=== PATIENT | male | born 1955 | race Caucasian/White ===

== ENCOUNTER → 2020-11-22 07:05 | Outpatient (CLI) | payer OTHER, SELFPAY ==
[2019-08-28 17:34] VITALS: BMI 24.8
[2020-11-22 10:49] LABS: ALB/GLOB Ratio 1.1 RATIO (0.9-2.4); AST(SGOT) 13 U/L (15-37); Alanine Aminotransfer ALT/SGPT 22 U/L (16-61); Albumin, Serum 3.5 g/dL (3.2-5.0); Alkaline Phosphatase 41 U/L (45-117); Anion Gap 5 (5-15); BUN 19 mg/dL (7-18); BUN/Creat Ratio 16.2 RATIO (10-20); Calcium,Total 8.3 mg/dL (8.5-10.1); Chloride 106 mmol/L (98-107); Cholesterol 124 mg/dL (200); Creatinine, Serum 1.17 mg/dL (0.70-1.30); EST Glomerular Filtration Rate 67 mL/min (>60); Est Glom Filt Rate - Afr Amer 81 mL/min (>60); Globulin 3.2 g/dL (2.2-4.2); Glucose 84 mg/dL (74-106); High Density Lipoprotein 55 mg/dL; PSA,Total - Annual Screen 1.65 ng/mL (0.00-4.00); Protein, Total 6.7 g/dL (6.4-8.2); Sodium Level 138 mmol/L (136-145); Triglycerides 62 mg/dL; Very Low Density Lipoprotein 12 mg/dL (5-40)
== END ==
PROVIDERS: PCP Family Medicine; Referring Provider Family Medicine; Visit Provider Family Medicine
DX: E78.00 Pure hypercholesterolemia, unspecified (principal); Z12.5 Encounter for screening for malignant neoplasm of prostate
CPT/HCPCS: 36415; 80053; 80061; 84153; G0103

== ENCOUNTER → 2021-02-19 06:32 | Outpatient (CLI) | payer OTHER, SELFPAY ==
[2019-08-28 17:34] VITALS: BMI 24.8
--- NOTE | 2021-02-19 10:50 | STRESSREP ---
Stress Test Report Date: 02-19-2021 Procedure: Exercise tolerance test/imaging study Indications: Abnormal ECG Consent: Per the patient Procedure: The patient exercised on a Og protocol for 5 minutes and 30 seconds completing Stage I and 2 minutes and 30 seconds of Stage II achieving a peak heart rate of 131 bpm (85% predicted maximal heart rate) with a peak blood pressure 178/62 mmHg and a peak MET capacity of 7 METs. The baseline ECG demonstrated sinus bradycardia; nonspecific T wave abnormality. The peak exercise ECG demonstrated sinus tachycardia with approximately [address] segment depression in leads II, III, aVF, and V3 through V6 with subsequent resolution towards baseline in recovery. There was a rare PVC during exercise and recovery. The functional capacity was considered average. There was no complaint of chest discomfort during exercise or recovery. The examination was discontinued secondary to dyspnea and leg discomfort. Impression: 1. Technically adequate (percent predicted maximal heart rate greater than 85%) exercise tolerance test 2. Abnormal peak exercise ECG with sinus tachycardia with approximately [address] segment depression in leads II, III, aVF, and V3 through V6 with resolution towards baseline in recovery 3. There was a rare PVC during exercise and recovery 4. Nuclear images pending Myocardial perfusion imaging study: Technique: The patient was injected with 11.2 mCi of technetium 99m Cardiolite and subsequently rest SPECT Cardiolite nuclear imaging was obtained in the horizontal long, vertical long, and short axis views. The patient exercised on a Og protocol for 5 minutes and 30 seconds completing Stage I and 2 minutes and 30 seconds of Stage II achieving a peak heart rate of 131 bpm (84% predicted maximal heart rate) with a peak blood pressure 178/62 mmHg and a peak MET capacity of 7 METs. The patient was injected with 32.6 mCi of technetium 99m Cardiolite and subsequently stress SPECT Cardiolite nuclear imaging was obtained in the horizontal long, vertical long, and short axis views. A gated Cardiolite study at peak stress was obtained. Interpretation: Rest and stress SPECT Cardiolite nuclear imaging status post realignment, normalization, and attenuation correction, demonstrates the appearance of relative uniform tracer uptake and myocardial perfusion appearing within normal limits. There is end systolic thickening and brightening. The gated Cardiolite study demonstrates myocardial thickening and inward wall motion. The reported LVEF is 63%. Impression: 1. Rest and stress SPECT Cardiolite nuclear imaging demonstrate relative uniform tracer uptake and myocardial perfusion appearing within normal limits. 2. The gated Cardiolite study reports an LVEF of 63%. This note was generated with [employer] software. It may contain incorrect words, spelling, and punctuation that were not noted in checking the note before signing.
== END ==
PROVIDERS: PCP Family Medicine; Referring Provider Nurse Practitioner Family; Visit Provider Nurse Practitioner Family
DX: R00.2 Palpitations (principal)
CPT/HCPCS: 78452; 93017; A9500; A4216

== ENCOUNTER → 2021-03-14 15:51 | Outpatient (CLI) | payer OTHER, SELFPAY ==
[2021-03-14 14:29] VITALS: BMI 25.2
--- NOTE | 2021-03-14 15:54 | RAD_ITS ---
STUDY: X-RAY CHEST REASON FOR EXAM: Male, 65 years old. Dyspnea on exertion TECHNIQUE: Frontal and lateral view COMPARISON: None. FINDINGS: The lungs are clear and expanded. There is no demonstrated pleural abnormality. Normal size heart. Normal mediastinum and lexii. Normal visualized pulmonary arteries. Normal visualized aortic arch and descending thoracic aorta. Normal visualized thoracic spine. Normal visualized ribs, clavicles, and shoulders. There is no demonstrated abnormality of the visualized soft tissue structures of the upper abdomen. RAD/Chest PA and Lateral IMPRESSION: Normal x-ray examination of the chest. Electronically Signed: Sharath Roque DO at 16:14 EDT Tel [phone], Service support ,
[2021-03-14 16:38] LABS: Absolute Lymphocyte Count 1.74 X10^3/uL (0.83-4.51); Absolute Neutrophil Count 2.9 X10^3/uL (2.0-7.7); Basophil# 0.03 X10^3/uL; Basophil% 0.5 % (0-1); Eosinophil# 0.13 X10^3/uL; Eosinophils% 2.4 % (0-5); Hemoglobin 9.5 g/dL (13.0-16.5); Lymphocyte # 1.74 X10^3/ul (0.83-4.51); Lymphocyte % 31.5 % (19-41); Mean Corp Hgb Conc 28.8 g/dL (32-36); Mean Corpuscular Volume 69.3 fL (80-94); Mean Platelet Vol. 10.9 fl (6.2-12.0); Monocyte# 0.71 X10^3/uL; Monocyte% 12.8 % (0-10); NRBC Flagged by Analyzer 0 % (0-5); Neutrophil # 2.91 X10^3/uL (2.7-7.7); Neutrophil % 52.6 % (47-70); Platelet Count 245 K/mm3 (150-450); RBC Distribution Width CV 18.6 % (11.6-14.6); RBC Distribution Width SD 45.7 fl (35.1-43.9); Red Blood Count 4.76 M/mm3 (4.6-6.2); White Blood Count 5.5 K/mm3 (4.4-11.0)
[2021-03-14 17:00] LABS: Anion Gap 6 (5-15); BUN 19 mg/dL (7-18); BUN/Creat Ratio 14.5 RATIO (10-20); Calcium,Total 8.8 mg/dL (8.5-10.1); Chloride 106 mmol/L (98-107); Creatinine, Serum 1.31 mg/dL (0.70-1.30); EST Glomerular Filtration Rate 58 mL/min (>60); Est Glom Filt Rate - Afr Amer 71 mL/min (>60); Glucose 91 mg/dL (74-106); Potassium 3.9 mmol/L (3.5-5.1); Sodium Level 141 mmol/L (136-145)
[2021-03-14 17:11] LABS: Prothrombin Time (Protime)PT. 12.9 SECONDS (11.7-14.9)
[2021-03-14 17:12] LABS: Partial Thromboplast Time 28.7 Seconds (24.1-36.2)
== END ==
PROVIDERS: PCP Family Medicine; Referring Provider Internal Medicine Cardiovascular Disease; Visit Provider Internal Medicine Cardiovascular Disease
DX: I20.8 Other forms of angina pectoris (principal); R94.39 Abnormal result of other cardiovascular function study; E78.00 Pure hypercholesterolemia, unspecified; Z82.49 Family history of ischemic heart disease and other diseases of the circulatory system
CPT/HCPCS: 36415; 71046; 80048; 85025; 85610; 85730

== ENCOUNTER → 2021-03-25 08:36 | Outpatient (CLI) | payer OTHER, SELFPAY ==
[2021-03-14 14:29] VITALS: BMI 25.2
--- NOTE | 2021-03-25 08:40 | ECHOD_ITS ---
Reason For Study: DYSPNEA Procedure This was a 2D Doppler, Color Flow transthoracic echocardiogram. Exam performed in department. Left Ventricle Normal LV size. Left ventricular systolic function is normal. The estimated ejection fraction is 65 %. No evidence for diastolic dysfunction. No regional wall motion abnormalities noted. Right Ventricle Normal RV size. Normal systolic function. Atria The left atrium is mildly enlarged. The right atrium is mildly enlarged. 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 No doppler evidence for ASD. Mitral Valve There is no mitral annular calcification. Normal mitral valve. Mild (1+) mitral valve insufficiency. Tricuspid Valve Normal tricuspid valve. Mild tricuspid valve insufficiency. Right ventricular systolic pressure estimated to be 28 mmHg. Aortic Valve Trisinus/trileaflet aortic valve. Normal aortic valve. Pulmonic Valve The pulmonic valve is not well visualized. Trivial pulmonic valve insufficiency. Great Vessels Normal sized aortic root. Pericardium/Pleural No pericardial effusion. MMode/2D Measurements & Calculations LVIDd: 5.8 cm IVSd: 1.2 cm Ao root diam: 3.2 cm LVIDs: 3.5 cm LVPWd: 1.2 cm RVDd: 3.6 cm FS: 40.2 % LAV(MOD-bp): 110.5 ml LA A4 area: 30.0 cm2 LA dimension(2D): 4.3 cm LAV(MOD-bp) Indexed: 57.5 ml/m2 LAV(MOD-sp2): 94.1 ml LAV(MOD-sp4): 124.4 ml RA A4 area: 19.7 cm2 Time Measurements MV dec time: 0.28 sec Doppler Measurements & Calculations MV E max marty: 59.1 cm/sec Lat Peak E' Marty: 15.2 cm/sec Med Peak E' Marty: 8.8 cm/sec MV A max marty: 39.7 cm/sec E/E' lat: 3.9 E/E' med: 6.7 MV E/A: 1.5 Ao V2 max: 144.4 cm/sec LV V1 max: 112.5 cm/sec PA V2 max: 104.7 cm/sec Ao max P.3 mmHg LV V1 max P.1 mmHg TR max marty: 251.9 cm/sec TR max P.4 mmHg ECHO/Echo Complete Interpretation Summary Left ventricular systolic function is normal. The estimated ejection fraction is 65 %. The left atrium is mildly enlarged. The right atrium is mildly enlarged. 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 Mild (1+) mitral valve insufficiency. Mild tricuspid valve insufficiency. Trivial pulmonic valve insufficiency. Right ventricular systolic pressure estimated to be 28 mmHg. No evidence for diastolic dysfunction. Ordering Physician: Nito Hooker Referring Physician: Maury Booth Performed By: Nikkie Mccrary RDCS, RVT
[2021-03-25 15:02] LABS: Absolute Lymphocyte Count 1.83 X10^3/uL (0.83-4.51); Absolute Neutrophil Count 2.1 X10^3/uL (2.0-7.7); Basophil# 0.03 X10^3/uL; Basophil% 0.6 % (0-1); Eosinophils% 2.1 % (0-5); Hematocrit 30.7 % (40-54); Hemoglobin 8.7 g/dL (13.0-16.5); Immature Platelet Fraction 4.7 % (1.0-7.9); Lymphocyte # 1.83 X10^3/ul (0.83-4.51); Lymphocyte % 39.3 % (19-41); Mean Corp Hgb Conc 28.3 g/dL (32-36); Mean Corpuscular Hgb 19.4 pg (27.0-32.0); Mean Corpuscular Volume 68.5 fL (80-94); Mean Platelet Vol. 11.3 fl (6.2-12.0); Monocyte% 12.9 % (0-10); NRBC Flagged by Analyzer 0 % (0-5); Neutrophil # 2.08 X10^3/uL (2.7-7.7); Neutrophil % 44.7 % (47-70); POSITIVE MORPHOLOGY YES; Platelet Count 214 K/mm3 (150-450); RBC Distribution Width CV 18.8 % (11.6-14.6); RBC Distribution Width SD 46.4 fl (35.1-43.9); RET-HE 18.8 pg (30-35); Red Blood Count 4.48 M/mm3 (4.6-6.2); Reticulocyte Count 1.04 % (0.5-1.5); White Blood Count 4.7 K/mm3 (4.4-11.0)
[2021-03-25 15:06] LABS: Differential Indicated SCAN CRITERIA MET
[2021-03-25 15:26] LABS: Vitamin B12 425 pg/mL (211-911)
[2021-03-25 15:40] LABS: Acanthocytes 1+; Microcytosis RARE; Ovalocyte 1+
[2021-03-25 15:41] LABS: Anisocytosis 1+; Hypochromasia 2+; Platelet Estimate ADEQUATE (ADEQ)
[2021-03-25 16:03] LABS: Anion Gap 6 (5-15); BUN 20 mg/dL (7-18); BUN/Creat Ratio 17.7 RATIO (10-20); Calcium,Total 8.7 mg/dL (8.5-10.1); Chloride 108 mmol/L (98-107); Creatinine, Serum 1.13 mg/dL (0.70-1.30); EST Glomerular Filtration Rate 69 mL/min (>60); Est Glom Filt Rate - Afr Amer 84 mL/min (>60); Ferritin 7 ng/mL (26-388); Glucose 92 mg/dL (74-106); Iron 14 ug/dL (65-175); Iron Binding Capacity,Total 401 ug/dL (250-450); Potassium 4.3 mmol/L (3.5-5.1); Sodium Level 141 mmol/L (136-145)
== END ==
PROVIDERS: PCP Family Medicine; Referring Provider Internal Medicine Cardiovascular Disease; Visit Provider Internal Medicine Cardiovascular Disease
DX: D64.9 Anemia, unspecified (principal); R13.10 Dysphagia, unspecified; R06.00 Dyspnea, unspecified; I20.8 Other forms of angina pectoris; R94.39 Abnormal result of other cardiovascular function study; E78.00 Pure hypercholesterolemia, unspecified; Z82.49 Family history of ischemic heart disease and other diseases of the circulatory system
CPT/HCPCS: 36415; 80048; 82607; 82728; 82746; 83540; 83550; 85025; 85045; 93306

== ENCOUNTER 2021-04-09 06:42 | Day surgery (SDC) | payer OTHER, SELFPAY ==
[2021-03-14 14:29] VITALS: BMI 25.2
[2021-04-08 08:54] VITALS: BMI 25.2
--- NOTE | 2021-04-08 13:31 | PCM.HP.BLA ---
History and Physical Date of Admission: 04/09/21 [facility] [id number] [place], [place] [phone] OFFICE VISITDate of Service: 03/14/21 MR#:[id number]:[id number]: SARAI FERGUSONRep #:[id number] Provider:Dr. Nito Hooker MDAge/Sex: 65/M [facility] HPI HPI History of Present Illness Surgical H&P: Yes Details: This is a 65-year-old white male who presents today for outpatient cardiovascular consultation based upon concerns of shortness of breath/dyspnea on exertion compatible with stable angina pectoris equivalent with an abnormal exercise tolerance test superimposed upon a history of hyperlipidemia. He states that recently he has noted that when he exerts himself, such as going up 1 flight of stairs, he feels a chest heaviness and becomes short of breath and dyspneic and has to stop and rest and catch his breath before he can speak with his . He does not note the symptoms at rest or at night. He has not had orthopnea or PND or peripheral pitting edema. There has been no near syncope or syncope. He does have a history of hyperlipidemia. He has been on medical management. He has a family history of cardiovascular disease. Thus he was concerned about his symptoms and requested additional evaluation and care. Thus he underwent evaluation with an exercise tolerance test/imaging study. The results of his exercise tolerance test/imaging study are noted below. They were reviewed with him. He had an ECG in the office today. He was noted to have sinus bradycardia with a nonspecific T wave change. Intake Vital Signs 03/14/21 14:29 Height 5 ft 10 in Weight: 176 lb 6 oz BMI 25.2 BP 128/72 H Blood Pressure Location Lt brachial Position Sitting Respiration 16 Pulse 60 Pulse Source Auscultation Intake Visit Reasons: ABN Stress/Ref. Liliya Villavicencio Wood Panel Inspector Required: No Accompanied by: Self Allergies etodolac Allergy (Unknown, Verified 03/14/21 14:33) Unknown Penicillins Allergy (Verified 03/14/21 14:33) Unknown Medications aspirin 81 mg tablet,delayed release 81 mg PO DAILY 08/12/19 [History Confirmed 03/14/21] atorvastatin 10 mg tablet 10 mg PO DAILY 05/29/19 [History Confirmed 03/14/21] cetirizine 10 mg tablet 10 mg PO DAILY PRN 03/14/21 [History Confirmed 03/14/21] clopidogrel 75 mg tablet 75 mg PO DAILY #30 tab 03/14/21 [Rx Confirmed 03/14/21] isosorbide mononitrate 30 mg tablet,extended release 24 hr 30 mg PO DAILY #30 tab 03/14/21 [Rx Confirmed 03/14/21] PFSH Medical History Blood in stool Foreign body in left ear, initial encounter Hemorrhoids Pure hypercholesterolemia Shingles Stomach ulcer Surgical History History of hand surgery History of hemorrhoidectomy Family History Brother Hypertension Mixed hyperlipidemia Grandfather Myocardial infarction Father Cancer Lung Diabetes Mother Hypertension Mixed hyperlipidemia Brother Myocardial infarction, Onset Age: 50 Social History Smoking Status: Never smoker alcohol intake: current alcohol intake frequency: a few times a week substance use type: does not use caffeine: Yes Type: coffee Number of servings: 2 ROS Const Const: Negative for fatigue, weakness, frequent falls, excessive sweating, weight gain or weight loss Eyes Eyes: Negative for transient loss of vision, blurry vision or change in vision ENT ENT: Negative for dizziness or balance problems Cardio Chest Pain: Yes Character: other (heaviness) Onset: exercise Location: mid sternal Duration: minutes Palpitations: No Edema: Left (ankle due to injury) Muscle aches with walking: None Resp Respiratory: Positive for SOB with activity (climbing stairs); Negative for SOB at rest GI GI: Negative vomiting or vomiting blood/hematemesis : Negative for hematuria Musc Musc: Negative for muscle aches/ myalgia, muscle weakness, joint pain or balance problems Skin Skin: Negative non-healing lesions or rash Neuro Neuro: Positive for lightheadedness (occasional bending over and standing back up); Negative for dizziness, orthostatic symptoms, frequent falls, weakness or blurry vision Les Hematologic/Lymphatic: Negative for easy bleeding Endo Endo: Negative for fatigue or excessive sweating Psych Psych: Negative for anxiety or depression Allergy Allergy/Immunology: Negative for hives and Negative for rash Cardiology Exam Const Appearance: cooperative, healthy appearing, comfortable, no acute distress, well developed and well groomed Nutritional Appearance: average body habitus Orientation: alert, awake and oriented x3 Head Head: normal to inspection, normocephalic and atraumatic Ears: hearing grossly normal bilaterally Nose: external nose normal Face and Sinus: face symmetric Eyes Eyelids: eyelids normal Conjunctivae: conjunctivae normal Pupils: PERRL EOM: EOM intact bilaterally Neck Neck: normal visual inspection and full ROM Carotids: normal carotid upstroke Chest Chest inspection: normal inspection of the chest, symmetric chest movement and normal respiratory effort Auscultation: Bilateral: Clear to Auscultation Cardio Palpation: normal PMI Rate: regular rate Rhythm: regular rhythm Heart sounds: S1 normal, S2 normal and murmur Murmur: Grade 2/6, soft and apex GI GI: normal to inspection, soft and bowel sounds present Neuro General: patient alert, patient awake, patient oriented x3, gait normal and moves all extremities Skin Skin: no rashes or lesions noted Extremities Pulses: Normal: Right Radial Pulse and Left Radial Pulse Lower Extremity Edema: None: Bilateral Psych Psychological: normal affect Assessment and Plan Assessment and Plan (1) Stable angina pectoris: Status: Acute Orders: Orders: Left Heart Cath/COR/LV Percut Today Basic Metabolic Profile (BMP) Today Partial Thromboplast Time Today Prothrombin Time w/INR Today CBC W/Diff, Automated Today Chest PA and Lateral Today Echo Complete Today Plan - Dr. Nito Hooker MD: The patient has symptoms of exertional dyspnea as well as chest heaviness concerning for unstable angina pectoris. At the moment the patient's case was reviewed with him. He will be recommended for additional medical management. This will include continuing his aspirin therapy, adding nitrates, continuing his lipid-lowering therapy, and adding an antiplatelet agent in anticipation of an upcoming diagnostic cardiac catheterization. If the patient's symptoms alter during this time then he should notify his physicians and/or report to the hospital for further evaluation care as deemed appropriate. (2) Dyspnea on exertion: Status: Acute Orders: Orders: Echo Complete Today Plan - Dr. Nito Hooker MD: The patient does have dyspnea on exertion which is more concerning to him than his chest discomfort/heaviness. Again there is concern this is an angina pectoris equivalent. At the present time he will continue medical management with further evaluation as noted. (3) Abnormal stress test: Status: Acute Orders: Orders: 12 Lead EKG performed by BMS Today Left Heart Cath/COR/LV Percut Today Basic Metabolic Profile (BMP) Today Partial Thromboplast Time Today Prothrombin Time w/INR Today CBC W/Diff, Automated Today Chest PA and Lateral Today Echo Complete Today Plan - Dr. Nito Hooker MD: He does have a mixed stress test with his ECG portion being abnormal and his myocardial imaging portion appearing unremarkable. Based upon his symptoms and his risk factors they are concerned that the myocardial images may be a false negative. Thus he is going to initiate medical therapy and proceed with evaluation with diagnostic cardiac catheterization. (4) Pure hypercholesterolemia: Status: Acute Orders: Orders: 12 Lead EKG performed by BMS Today Left Heart Cath/COR/LV Percut Today Basic Metabolic Profile (BMP) Today Partial Thromboplast Time Today Prothrombin Time w/INR Today CBC W/Diff, Automated Today Chest PA and Lateral Today Echo Complete Today Plan - Dr. Nito Hooker MD: He will continue his lipid-lowering therapy. (5) Family history of cardiovascular disease: Status: Acute Orders: Orders: 12 Lead EKG performed by BMS Today Left Heart Cath/COR/LV Percut Today Basic Metabolic Profile (BMP) Today Partial Thromboplast Time Today Prothrombin Time w/INR Today CBC W/Diff, Automated Today Chest PA and Lateral Today Echo Complete Today Plan Details Other Medications: New: isosorbide mononitrate ER 30 mg PO DAILY 30 tabs 1RF clopidogrel (Plavix) 4 tablets (300 mg) by mouth on Day 1 then 1 tablet (75) mg a day 75 mg PO DAILY 30 tabs 1RF Additional Comments: He does have a family history of cardiovascular disease which adds to his cardiovascular risk factor profile. Health Concerns: At the present time he will proceed with medical management as noted. His medications can be adjusted as deemed appropriate. He will proceed with additional evaluation which will include laboratory studies (to evaluate for any evidence of anemia that would be contributing to his findings) as well as chest x-ray (to evaluate for any evidence of a pulmonary disease process contributing to his findings) and an echocardiogram to assess his left ventricular wall motion systolic function in addition to plans for an upcoming diagnostic cardiac catheterization. The above was discussed with him and the procedure and risks were discussed with him. He was agreeable to this approach. Thank you for allowing me to participate in the care of your patient. Please don't hesitate to call if any issues arise. This note was generated using a voice recognition system and there may be incorrect words, spelling or punctuation that were not noted when reviewing the office note prior to saving. Follow Up: 3 Months (PFM) COVID (Procedure Consent) Procedure Criteria Procedure Criteria: Yes Elective The surgeon/proceduralist and patient have discussed in detail the risk of exposure to and/or potential harm posed by the COVID-19 virus with having a surgery/procedure at this time versus the risk of delaying the surgery/procedure. It is not possible to know either the risk of delaying the surgery or procedure or chance of getting an infection with perfect accuracy, but a joint decision was made between the patient and the surgeon/proceduralist to proceed at this time with the scheduled surgery/procedure as indicated on the consent form. Coding Level of Care Code Off vis,new,level 5 Diagnoses Stable angina pectoris I20.8 Dyspnea on exertion R06.00 Abnormal stress test R94.39 Pure hypercholesterolemia E78.00 Family history of cardiovascular disease Z82.49 Coding Level of Care Code Off vis,new,level 5 Diagnoses Stable angina pectoris I20.8 Dyspnea on exertion R06.00 Abnormal stress test R94.39 Pure hypercholesterolemia E78.00 Family history of cardiovascular disease Z82.49 Supplemental Info Supplemental Information Stress Test Report Date: 02-19-2021 Procedure: Exercise tolerance test/imaging study Indications: Abnormal ECG Consent: Per the patient Procedure: The patient exercised on a Og protocol for 5 minutes and 30 seconds completing Stage I and 2 minutes and 30 seconds of Stage II achieving a peak heart rate of 131 bpm (85% predicted maximal heart rate) with a peak blood pressure 178/62 mmHg and a peak MET capacity of 7 METs. The baseline ECG demonstrated sinus bradycardia; nonspecific T wave abnormality. The peak exercise ECG demonstrated sinus tachycardia with approximately [address] segment depression in leads II, III, aVF, and V3 through V6 with subsequent resolution towards baseline in recovery. There was a rare PVC during exercise and recovery. The functional capacity was considered average. There was no complaint of chest discomfort during exercise or recovery. The examination was discontinued secondary to dyspnea and leg discomfort. Impression: 1. Technically adequate (percent predicted maximal heart rate greater than 85%) exercise tolerance test 2. Abnormal peak exercise ECG with sinus tachycardia with approximately [address] segment depression in leads II, III, aVF, and V3 through V6 with resolution towards baseline in recovery 3. There was a rare PVC during exercise and recovery 4. Nuclear images pending Myocardial perfusion imaging study: Technique: The patient was injected with 11.2 mCi of technetium 99m Cardiolite and subsequently rest SPECT Cardiolite nuclear imaging was obtained in the horizontal long, vertical long, and short axis views. The patient exercised on a Og protocol for 5 minutes and 30 seconds completing Stage I and 2 minutes and 30 seconds of Stage II achieving a peak heart rate of 131 bpm (84% predicted maximal heart rate) with a peak blood pressure 178/62 mmHg and a peak MET capacity of 7 METs. The patient was injected with 32.6 mCi of technetium 99m Cardiolite and subsequently stress SPECT Cardiolite nuclear imaging was obtained in the horizontal long, vertical long, and short axis views. A gated Cardiolite study at peak stress was obtained. Interpretation: Rest and stress SPECT Cardiolite nuclear imaging status post realignment, normalization, and attenuation correction, demonstrates the appearance of relative uniform tracer uptake and myocardial perfusion appearing within normal limits. There is end systolic thickening and brightening. The gated Cardiolite study demonstrates myocardial thickening and inward wall motion. The reported LVEF is 63%. Impression: 1. Rest and stress SPECT Cardiolite nuclear imaging demonstrate relative uniform tracer uptake and myocardial perfusion appearing within normal limits. 2. The gated Cardiolite study reports an LVEF of 63%. Labs: LDL Cholesterol 57 mg/dL (0-130) HDL Cholesterol 55 mg/dL (40-) Triglycerides 62 mg/dL (-199) VLDL Cholesterol 12 mg/dL (5-40) Diagnostics: Electrocardiogram Stress Test NM Stress Test Pulmonary: No Data to Display 03/14/21 4510<Electronically signed by Nito Hooker MD>Date Nito Hooker MD Cosigner Signature:Date (if applicable) CC: Dr. Dallas Booth MD ~ Addendum: 04-09-2021 The patient underwent precardiac catheterization laboratory evaluation. He was found to have diminished hemoglobin level compatible with anemia. He was evaluated by his PCP. He has reported to be stool occult negative. He has been placed on iron supplement. His PCP has stated the patient may proceed with further evaluation with his diagnostic cardiac catheterization at this time. I have re-examined the patient. There are no clinical changes since date of exam.
[2021-04-08 17:27] LABS: Hematocrit 33.3 % (40-54); Hemoglobin 9.6 g/dL (13.0-16.5); Mean Corp Hgb Conc 28.8 g/dL (32-36); Mean Corpuscular Hgb 20.1 pg (27.0-32.0); Mean Corpuscular Volume 69.7 fL (80-94); POSITIVE MORPHOLOGY YES; Platelet Count 212 K/mm3 (150-450); RBC Distribution Width CV 22.1 % (11.6-14.6); RBC Distribution Width SD 51.5 fl (35.1-43.9); Red Blood Count 4.78 M/mm3 (4.6-6.2); White Blood Count 5.6 K/mm3 (4.4-11.0)
[2021-04-08 18:28] LABS: Scan Indicated on CBC? Y/N YES- FLAGS NOTED
[2021-04-08 18:30] LABS: Differential Comment SEE COMMENTS
--- NOTE | 2021-04-10 12:31 | CL.D_ITS ---
Patient Name: SARAI FERGUSON Study Date: 04/09/2021 Performing: Nito Hooker MD Ht: 70.07 inches 178 cm : 1955 Wt: 176.37 lbs 80 kg Age: 65 Gender: male BSA: 1.98 PROCEDURE(S) PERFORMED KC48-NVA/COR/LV CLINICAL PROFILE AND INDICATIONS Indications: Suspected CAD Heart Failure: None Stress/Imaging Date: 02/19/2021 Angina Classification Anginal Classification w/in 2 Weeks: CCS III CAD Presentations: Stable angina. CONCLUSIONS Elevated Left Ventricular End Diastolic Pressure Normal LV size, wall motion,and systolic function LVEF: by LV gram 60 % Normal coronary arteries RECOMMENDATIONS Medical therapy DESCRIPTION OF PROCEDURE The patient arrived to the procedure lab. The risks and benefits of the procedure as well as a full d escription of our services here and current unavailability of surgical backup were fully explained to the patient and/or their significant other prior to the catheterization. The Timeout was completed, verifying the correct patient and procedure. The patient's procedural site was prepped and draped in the usual fashion. Local anesthetic was given subcutaneously to right radial region with Lidocaine 2% . Local anesthetic was given subcutaneously to right groin region with Lidocaine 2%. Using a modified Seldinger technique, arterial access was obtained via the right femoral artery, a 4Fr sheath was ins erted Left Coronary Artery selective angiography was performed in multiple views using a 4 Fr. JL5 c atheter. Right Coronary Artery selective angiography was then performed in multiple views using a 4 F r. 3DRC catheter. Left Ventriculography was performed in DE LA PAZ projection using a 4 Fr. Pigtail catheter. LV to AO pullback pressures were then recorded.The arterial sheath was pulled and m anual compression applied until hemostasis is achieved. CORONARY ANGIOGRAPHY DOMINANCE: Right Dominant LEFT HEART ASSESSMENT Left Ventricular Ejection Fraction: by LV Gram 60 % Normal LV wall motion Elevated Left Ventricular End Diastolic Pressure LVEDP: 21 mmHg LEFT MAIN: Angiographically normal LEFT ANTERIOR DESCENDING ARTERY: Angiographically normal CIRCUMFLEX ARTERY: Angiographically normal RAMUS: Angiographically normal RIGHT CORONARY ARTERY: Angiographically normal AORTIC ROOT: Angiographically normal COMPLICATIONS No Complications PROCEDURE MEDICATIONS Fentanyl 50 mcg IV Versed 1 mg IV Oxygen: 2 L/min via nasal cannula Baby Aspirin (81mg) 1 Tabs PO @ 04/09/2021 07:53:43 Plavix 75 mg PO 04/09/2021 07:53:50 SUMMARY OF HEMODYNAMIC DATA Time AIR REST ECG 07:05:22 AO 138/68 (94) SA 09:42:20 LV 145/-12, 18 09:49:24 LV 142/-5, 21 09:49:30 LV 136/-4, 18 09:50:20 LVp 136/-6, 17 09:50:26 AOp 130/60 (86) 09:50:31 ECG 10:12:33 RM AIR REST 10:13:04 Signed By Nito Hooker MD On 04/09/2021 10:17:57 AM Nito Hooker MD
== END 2021-04-09 14:10 | disposition home or self-care (01) ==
LOC: CLSP 06:44
PROVIDERS: PCP Family Medicine; Referring Provider Internal Medicine Cardiovascular Disease; Visit Provider Internal Medicine Cardiovascular Disease
DX: I25.118 Atherosclerotic heart disease of native coronary artery with other forms of angina pectoris (principal); E78.00 Pure hypercholesterolemia, unspecified; Z79.82 Long term (current) use of aspirin; Z68.25 Body mass index [BMI] 25.0-25.9, adult; Z79.899 Other long term (current) drug therapy
CPT/HCPCS: 36415; 85027; 93458; 99152; 99153; J7040; C1769; C1894; Q9967

== ENCOUNTER → 2021-06-09 07:00 | Outpatient (CLI) | payer OTHER, SELFPAY ==
[2021-06-09 10:19] LABS: Absolute Lymphocyte Count 1.99 X10^3/uL (0.83-4.51); Absolute Neutrophil Count 1.7 X10^3/uL (2.0-7.7); Basophil# 0.03 X10^3/uL; Basophil% 0.6 % (0-1); Eosinophil# 0.23 X10^3/uL; Eosinophils% 4.9 % (0-5); Hematocrit 46.8 % (40-54); Hemoglobin 15.1 g/dL (13.0-16.5); Lymphocyte # 1.99 X10^3/ul (0.83-4.51); Lymphocyte % 42.2 % (19-41); Mean Corp Hgb Conc 32.3 g/dL (32-36); Mean Corpuscular Hgb 26.7 pg (27.0-32.0); Mean Corpuscular Volume 82.7 fL (80-94); Mean Platelet Vol. 10.5 fl (6.2-12.0); Monocyte# 0.73 X10^3/uL; Monocyte% 15.5 % (0-10); NRBC Flagged by Analyzer 0 % (0-5); Neutrophil # 1.74 X10^3/uL (2.7-7.7); Neutrophil % 36.8 % (47-70); POSITIVE MORPHOLOGY YES; Platelet Count 167 K/mm3 (150-450); RBC Distribution Width CV 24.6 % (11.6-14.6); RBC Distribution Width SD 69.4 fl (35.1-43.9); Red Blood Count 5.66 M/mm3 (4.6-6.2); White Blood Count 4.7 K/mm3 (4.4-11.0)
[2021-06-09 10:26] LABS: Differential Indicated SCAN CRITERIA MET
[2021-06-09 10:32] LABS: Ferritin 16 ng/mL (26-388); Iron 81 ug/dL (65-175)
[2021-06-09 11:00] LABS: Anisocytosis 2+; Differential Comment SCANNED; Macrocytosis 1+; Microcytosis 1+
== END ==
PROVIDERS: PCP Family Medicine; Referring Provider Family Medicine; Visit Provider Family Medicine
DX: D64.9 Anemia, unspecified (principal)
CPT/HCPCS: 36415; 82728; 83540; 85025

== ENCOUNTER 2021-12-29 09:04 | Outpatient (CLI) | payer OTHER, SELFPAY ==
[2021-12-29 09:50] LABS: Hematocrit 47.5 % (40-54); Mean Corp Hgb Conc 33.7 g/dL (32-36); Mean Corpuscular Hgb 30.4 pg (27.0-32.0); Mean Corpuscular Volume 90.1 fL (80-94); Mean Platelet Vol. 10.7 fl (6.2-12.0); Platelet Count 203 K/mm3 (150-450); RBC Distribution Width CV 12.8 % (11.6-14.6); RBC Distribution Width SD 42.3 fl (35.1-43.9); Red Blood Count 5.27 M/mm3 (4.6-6.2)
[2021-12-29 10:33] LABS: ALB/GLOB Ratio 1.2 RATIO (0.9-2.4); AST(SGOT) 16 U/L (15-37); Alanine Aminotransfer ALT/SGPT 30 U/L (16-61); Alkaline Phosphatase 58 U/L (45-117); Anion Gap 5 (5-15); BUN 17 mg/dL (7-18); BUN/Creat Ratio 15.6 RATIO (10-20); Calcium,Total 8.7 mg/dL (8.5-10.1); Chloride 105 mmol/L (98-107); Cholesterol 146 mg/dL (200); Creatinine, Serum 1.09 mg/dL (0.70-1.30); EST Glomerular Filtration Rate 72 mL/min (>60); Est Glom Filt Rate - Afr Amer 87 mL/min (>60); Ferritin 12 ng/mL (26-388); Globulin 3.2 g/dL (2.2-4.2); Glucose 100 mg/dL (74-106); High Density Lipoprotein 49 mg/dL; Iron 95 ug/dL (65-175); PSA,Total - Annual Screen 2.25 ng/mL (0.00-4.00); Protein, Total 7.2 g/dL (6.4-8.2); Sodium Level 139 mmol/L (136-145); Triglycerides 129 mg/dL; Very Low Density Lipoprotein 26 mg/dL (5-40)
== END 2021-12-29 23:59 | disposition home or self-care (01) ==
LOC: MTLAB 09:05
PROVIDERS: PCP Family Medicine; Referring Provider Family Medicine; Visit Provider Family Medicine
DX: D64.9 Anemia, unspecified (principal); E78.00 Pure hypercholesterolemia, unspecified; Z12.5 Encounter for screening for malignant neoplasm of prostate
CPT/HCPCS: 80053; 80061; 82728; 83540; 84153; 85027; G0103

== ENCOUNTER → 2022-12-31 | Outpatient (CLI) | payer OTHER, SELFPAY ==
[2022-12-31 09:47] LABS: Absolute Lymphocyte Count 1.82 X10^3/uL (0.83-4.51); Basophil# 0.05 X10^3/uL; Basophil% 0.9 % (0-1); Eosinophil# 0.15 X10^3/uL; Eosinophils% 2.6 % (0-5); Hematocrit 45.7 % (40-54); Hemoglobin 15.1 g/dL (13.0-16.5); Lymphocyte # 1.82 X10^3/ul (0.83-4.51); Lymphocyte % 31.5 % (19-41); Mean Corpuscular Hgb 31.5 pg (27.0-32.0); Mean Corpuscular Volume 95.2 fL (80-94); Mean Platelet Vol. 10.4 fl (6.2-12.0); Monocyte# 0.74 X10^3/uL; Monocyte% 12.8 % (0-10); NRBC Flagged by Analyzer 0 % (0-5); Neutrophil # 3.01 X10^3/uL (2.7-7.7); Platelet Count 201 K/mm3 (150-450); RBC Distribution Width CV 12.8 % (11.6-14.6); RBC Distribution Width SD 45.1 fl (35.1-43.9); White Blood Count 5.8 K/mm3 (4.4-11.0)
[2022-12-31 10:19] LABS: ALB/GLOB Ratio 1.2 RATIO (0.9-2.4); AST(SGOT) 14 U/L (15-37); Alanine Aminotransfer ALT/SGPT 25 U/L (16-61); Albumin, Serum 3.6 g/dL (3.2-5.0); Alkaline Phosphatase 46 U/L (45-117); Anion Gap 6 (5-15); BUN 17 mg/dL (7-18); BUN/Creat Ratio 14.7 RATIO (10-20); Calcium,Total 8.8 mg/dL (8.5-10.1); Chloride 105 mmol/L (98-107); Cholesterol 139 mg/dL (200); Creatinine, Serum 1.16 mg/dL (0.70-1.30); EST Glomerular Filtration Rate 67 mL/min (>60); Est Glom Filt Rate - Afr Amer 81 mL/min (>60); Ferritin 15 ng/mL (26-388); Globulin 3.1 g/dL (2.2-4.2); Glucose 95 mg/dL (74-106); High Density Lipoprotein 54 mg/dL; Iron 74 ug/dL (65-175); PSA,Total - Annual Screen 3.44 ng/mL (0.00-4.00); Protein, Total 6.7 g/dL (6.4-8.2); Sodium Level 140 mmol/L (136-145); Triglycerides 111 mg/dL; Very Low Density Lipoprotein 22 mg/dL (5-40)
== END | disposition home or self-care (01) ==
LOC: MFPLAB 08:08
PROVIDERS: PCP Family Medicine; Referring Provider Family Medicine; Visit Provider Family Medicine
DX: D64.9 Anemia, unspecified (principal); E78.00 Pure hypercholesterolemia, unspecified; Z12.5 Encounter for screening for malignant neoplasm of prostate
CPT/HCPCS: 36415; 80053; 80061; 82728; 83540; 84153; 85025; G0103

== ENCOUNTER → 2023-09-16 | Outpatient (CLI) | payer OTHER, SELFPAY ==
--- NOTE | 2023-09-16 17:36 | STRESSREP ---
Stress Test Report Exercise stress test. 67-year-old man with a history of dyspnea on exertion Stress protocol: Resting EKG demonstrates sinus bradycardia with a rate of 53 bpm resting blood pressure is 140/78 mmHg. The patient exercised according to the regular Og protocol for a total duration of 8 minutes and 30 seconds attaining a maximum heart rate of 129 bpm which was 84% of maximum predicted heart rate; the maximum workload was 10.1 metabolic equivalents. At rest there were no ST or T wave changes noted to suggest ischemia and at peak exercise upsloping ST changes only were noted which did not meet the criteria for ischemia. Frequent premature ventricular complexes were noted. No clinical angina was noted the test was terminated due to the target heart rate being achieved/fatigue. The peak blood pressure was 162/90 mmHg. Rate-pressure product was 97660. Conclusion: Stress test with no EKG criteria for ischemia at a high workload. No clinical angina noted.
== END | disposition home or self-care (01) ==
PROVIDERS: PCP Family Medicine; Referring Provider Nurse Practitioner Family; Visit Provider Nurse Practitioner Family
DX: D64.9 Anemia, unspecified (principal); R06.00 Dyspnea, unspecified; E78.00 Pure hypercholesterolemia, unspecified; R00.1 Bradycardia, unspecified; Z82.49 Family history of ischemic heart disease and other diseases of the circulatory system
CPT/HCPCS: 93017

== ENCOUNTER → 2024-07-05 | Outpatient (CLI) | payer MEDICARE, SELFPAY ==
[2024-07-05 15:06] LABS: Hematocrit 46.5 % (40-54); Hemoglobin 15.5 g/dL (13.0-16.5); Mean Corp Hgb Conc 33.3 g/dL (32-36); Mean Corpuscular Hgb 31.1 pg (27.0-32.0); Mean Corpuscular Volume 93.2 fL (80-94); Platelet Count 194 K/mm3 (150-450); RBC Distribution Width CV 13.2 % (11.6-14.6); RBC Distribution Width SD 44.9 fl (35.1-43.9); RET-HE 36.4 pg (30-35); Red Blood Count 4.99 M/mm3 (4.6-6.2); Reticulocyte Count 1.45 % (0.5-1.5)
[2024-07-05 15:28] LABS: ALB/GLOB Ratio 1.1 RATIO (0.9-2.4); AST(SGOT) 17 U/L (15-37); Alanine Aminotransfer ALT/SGPT 22 U/L (16-61); Albumin, Serum 3.9 g/dL (3.2-5.0); Alkaline Phosphatase 47 U/L (45-117); Anion Gap 4 (5-15); BUN 17 mg/dL (7-18); BUN/Creat Ratio 15.7 RATIO (10-20); Calcium,Total 9.3 mg/dL (8.5-10.1); Chloride 105 mmol/L (98-107); Cholesterol 160 mg/dL (200); Creatinine, Serum 1.08 mg/dL (0.70-1.30); EST Glomerular Filtration Rate 72 mL/min (>60); Est Glom Filt Rate - Afr Amer 87 mL/min (>60); Ferritin 22 ng/mL (26-388); Globulin 3.4 g/dL (2.2-4.2); Glucose 100 mg/dL (74-106); High Density Lipoprotein 64 mg/dL; Iron 162 ug/dL (65-175); Potassium 4.7 mmol/L (3.5-5.1); Protein, Total 7.3 g/dL (6.4-8.2); Sodium Level 138 mmol/L (136-145); Triglycerides 85 mg/dL; Very Low Density Lipoprotein 17 mg/dL (5-40)
== END | disposition home or self-care (01) ==
PROVIDERS: PCP Family Medicine; Visit Provider Family Medicine
DX: E78.00 Pure hypercholesterolemia, unspecified (principal); D64.9 Anemia, unspecified; Z12.5 Encounter for screening for malignant neoplasm of prostate
CPT/HCPCS: 36415; 80053; 80061; 82728; 83540; 84153; 85027; 85045; G0103

== ENCOUNTER → 2024-10-12 | Outpatient (CLI) | payer MEDICARE, SELFPAY ==
[2024-10-13 16:08] LABS: PSA, Total 12.5 ng/mL (0.0-4.0)
== END | disposition home or self-care (01) ==
LOC: MFPLAB 10:17
PROVIDERS: PCP Family Medicine; Referring Provider Family Medicine; Visit Provider Family Medicine
DX: R97.20 Elevated prostate specific antigen [PSA] (principal)
CPT/HCPCS: 36415; 84153

== ENCOUNTER → 2024-11-13 | Outpatient (CLI) | payer MEDICARE, SELFPAY ==
[2024-11-15 14:08] LABS: PSA, Free 1.37 ng/mL; PSA, Free % 18.8 % (.)
== END | disposition home or self-care (01) ==
LOC: LAB 15:45
PROVIDERS: PCP Family Medicine; Referring Provider Urology; Visit Provider Urology
DX: R97.20 Elevated prostate specific antigen [PSA] (principal)
CPT/HCPCS: 36415; 84153; 84154

== ENCOUNTER → 2024-12-18 | Outpatient (CLI) | payer MEDICARE, SELFPAY ==
--- NOTE | 2024-12-18 11:07 | MRI_ITS ---
PROCEDURE: PELVIS W/WO CONTRAST REASON FOR EXAM: ELEVATED PSA TECHNIQUE: Multiplanar, multisequence MRI of the prostate was performed before and following intravenous gadolinium-based contrast. Axial, coronal, and sagittal high-resolution T2-weighted images, axial T1-weighted images, and diffusion-weighted images with high B value, were performed. CONTRAST: 15 mL Clariscan COMPARISON: None. FINDINGS: Variable overall mild motion limitation. Note also that the exam is limited by the lack of dynamic postcontrast imaging requiring the use of an alternative PI-RADS algorithm. Prostate dimensions 3.0 x 4.8 x 3.5 cm for estimated volume 26 mL. Peripheral Zone: Background changes of likely prostatitis. Additional lesions as below: *Lesion 1: Ill-defined T2 signal in the left anterior peripheral zone mid gland to apex, 1.4 cm (series 9, image 19). *T2 score: 3. *DWI score: Borderline; felt best considered DWI score 4. *DCE: Not applicable. *Overall PI-RADS: Borderline; felt the best considered PI-RADS 4. *Extracapsular extension: No definite extracapsular extension, however note that there is capsular abutment greater than 1 cm which can be associated with microscopic extracapsular extension. *Lesion 2: Ill-defined T2 signal in the right posterolateral peripheral zone apex, 1.2 cm (series 9, image 20). *T2 score: 3. *DWI score: 3. *DCE: Not applicable. *Overall PI-RADS: PI-RADS 3. *Extracapsular extension: No definite extracapsular extension, however note that there is capsular abutment greater than 1 cm which can be associated with microscopic extracapsular extension. Note this includes the region of the right neurovascular bundle which appears grossly unremarkable. Transitional Zone: PI-RADS 2 findings. Seminal vesicles: Unremarkable. Bladder: Underdistended and suboptimally evaluated. Wall thickening and trabeculation suggests possible chronic bladder outlet obstruction. Lymph nodes: Borderline distal right external iliac node by prostate criteria, 8 mm short axis. Bone marrow: Partially imaged T1 and T2 dark peripherally enhancing structure associated with the L5-S1 facet joint measuring at least 2.0 x 2.8 cm, excluded from the [id number] on the majority of sequences obtained. T1 imaging without fat saturation was not performed through this region. Partially imaged apparent ill-defined enhancement in the proximal to mid left femoral diaphysis, included only on 1 sequence spanning at least 2.3 cm craniocaudal. Other: MRI/Pelvis W/WO Contrast IMPRESSION: 1. Note the exam is limited by the lack of dynamic postcontrast imaging requiri ng the use of an alternative PI-RADS algorithm. 2. Partially imaged indeterminate lesions along the left lumbosacral junction a t least 2.8 cm and proximal to mid left femoral diaphysis at least 2.3 cm, not well evaluated and included only on a few sequen kyler. The former may reflect a complex synovial cyst related to facet arthropathy however signal characteristics are indetermin ate and this is not definite. Recommend MRI lumbar spine with and without contrast as well as dedicated radiographs of the left fe mur with subsequent imaging based on those findings. Correlation with medical history and any available outside imaging m ay also be helpful. 3. 1.4 cm ill-defined lesion in the mid to apical left anterior peripheral zone may reflect sequela of prominent prostatitis but borderline meets criteria for PI-RADS 4 (lesion 1). 4. 1.2 cm PI-RADS 3 lesion in the right posterolateral peripheral zone apex (le desiree 2). 5. No definite extracapsular extension, however note that there is capsular abu tment greater than 1 cm by both lesions which can be associated with microscopic extracapsular extension. Note this includes the region of the right neurovascular bundle, which appears grossly unremarkable. 6. Borderline distal right external iliac node by PI-RADS criteria, nonspecific in the absence of known prostatic neoplasm and potentially reactive. If prostate cancer is found to be present, this would wa rrant attention on follow-up. 7. Additional description as above. Reading Location: [facility]
== END | disposition home or self-care (01) ==
PROVIDERS: PCP Family Medicine; Referring Provider Urology; Visit Provider Urology
DX: N40.1 Benign prostatic hyperplasia with lower urinary tract symptoms (principal); R97.20 Elevated prostate specific antigen [PSA]
CPT/HCPCS: 72197; A9575

== ENCOUNTER → 2025-02-03 | Outpatient (CLI) | payer MEDICARE, SELFPAY ==
--- NOTE | 2025-02-03 07:26 | RAD_ITS ---
PROCEDURE: FEMUR MIN 2 VIEWS 02/03/2025 REASON FOR EXAM: CYST TECHNIQUE: 4 view(s) of the left femur. COMPARISON: None FINDINGS: Bones: No acute fracture or dislocation. Joints: Normal alignment at the hip and knee. Soft tissues: Soft tissues are unremarkable. Other: RAD/Femur Min 2 Views IMPRESSION: NO ACUTE FRACTURE OR DISLOCATION. Reading Location: [facility]
--- NOTE | 2025-02-03 07:31 | MRI_ITS ---
PROCEDURE: SPINE LUMBAR (ROUTINE) 02/03/2025 REASON FOR EXAM: Indeterminate lesion seen on prostate MRI. TECHNIQUE: Multiplanar and multisequence images were obtained without IV contrast administration. COMPARISON: Correlation with prior prostate MRI dated 12/18/2024 FINDINGS: 5 lumbar-type vertebral levels. Mild levocurvature of the lumbar spine. Minimal endplate changes seen at the L3 and L4 levels. Hemangioma seen within the T11 vertebral body, partially imaged. No acute lumbar spine fractures or dislocations are identified. There is disc desiccation noted at the L1 through S1 levels. Conus medullaris terminates posterior to the L1-2 level. Distal cord and cauda equina appear intact. Tarlov cysts posterior to the S2-3 level measuring 1.4 cm in the CC dimension. The paraspinal soft tissues appear intact. Disc levels as follows: T11-12, T12-L1: Evaluated on sagittal imaging only. No disc herniation, central spinal or neural foraminal stenosis bilaterally L1-2: No disc herniation, central spinal or neural foraminal stenosis bilaterally L2-3: Minimal broad-based disc bulge. Mild facet arthrosis. No significant central spinal or neural foraminal stenosis bilaterally L3-4: Broad-based disc osteophyte complex slightly eccentric towards the right. Moderate facet arthrosis. Minimal narrowing of the right lateral recess. No central spinal or neural foraminal stenosis bilaterally L4-5: Broad-based disc osteophyte complex. There is facet arthrosis and ligamentum flavum thickening. Mild narrowing of the lateral recesses. No central spinal stenosis. Mild neural foraminal stenosis bilaterally L5-S1: Broad-based disc osteophyte complex. There is facet arthrosis bilaterally. No central spinal or neural foraminal stenosis bilaterally. Previously described 2.8 cm indeterminate lesion within the left lumbosacral junction seen on prostate MRI, corresponds to facet arthrosis. MRI/Spine Lumbar (Routine) IMPRESSION: 1. Previously described 2.8 cm indeterminate lesion within the left lumbosacral junction seen on prostate MRI, corresponds to facet arthrosis of the L5-S1 level on the left. 2. At the L4-5 level, broad-based disc osteophyte complex in combination with f acet arthrosis and ligamentum flavum thickening mildly narrows the lateral recesses bilaterally. No central spinal stenosis. Mild neural foraminal stenosis bilaterally. 3. At the L3-4 level, broad-based disc osteophyte complex towards the right min imally narrows the right lateral recess. No central spinal stenosis. 4. Additional less prominent spondylotic changes, as detailed above. Reading Location: [facility]
== END | disposition home or self-care (01) ==
PROVIDERS: PCP Family Medicine; Referring Provider Family Medicine; Visit Provider Family Medicine
DX: M85.652 Other cyst of bone, left thigh (principal); M71.38 Other bursal cyst, other site
CPT/HCPCS: 72148; 73552

== ENCOUNTER 2025-04-07 19:06 | Emergency (ER) | payer MEDICARE, SELFPAY ==
[2025-04-07] VITALS (7 sets, daily range): BP systolic 133–155; BP diastolic 78–95; PULSE 41–54; RESP 8–16; TEMP 36.8; O2SAT 97–99; BMI 23.6
--- NOTE | 2025-04-07 20:26 | CT_ITS ---
PROCEDURE: ABDOMEN/PELVIS WITHOUT CONT 04/07/2025 REASON FOR EXAM: PAIN, constipation TECHNIQUE: ABDOMEN/PELVIS WITHOUT CONT Noncontrast technique limits evaluation of the abdominal and pelvic viscera. Coronal and Sagittal reconstruction series were provided. One or more dose reduction techniques were used (e.g., Automated exposure control, adjustment of the mA and/or kV according to patient size, use of iterative reconstruction technique). COMPARISON: None. FINDINGS: Lung bases: Bibasilar atelectasis. Liver: The unopacified liver is normal in size. No biliary ductal dilation. Gallbladder: No radiopaque stones within the gallbladder. Spleen: Normal in size. Pancreas: The unopacified pancreas is grossly unremarkable. Adrenals: No adrenal mass. Kidneys: No hydronephrosis or nephrolithiasis. Bladder: Distended and unremarkable. Reproductive Organs: Unremarkable. Bowel: Suture material within the distal rectum. The bowel loops are nondilated. No ascites or pneumoperitoneum. Normal appendix. Lymph nodes: Visualization is limited without the use of IV contrast. Prominent mesenteric and periportal nodes, likely reactive. Vasculature: Mild calcific plaque of the aortoiliac vessels. Bones/soft tissues: Small left inguinal hernia containing fat and simple fluid, with stranding and edema of the inguinal contents. Thoracolumbar spondylosis. CT/Abdomen/Pelvis without Cont IMPRESSION: CT findings concerning for incarcerated left inguinal hernia, however this is a clinical diagnosis. Correlation with physical examination recommended. Otherwise no acute abdominopelvic finding. Reading Location: [id number]
--- NOTE | 2025-04-07 20:28 | EX.ED.DYSGE1 ---
HPI History of Present Illness Chief Complaint: Abd Pain Informant: patient and spouse/S.O. Narrative Narrative: Presents with spouse provide concerning hernia left groin. He was chopping wood yesterday and lifting. This morning 60 awake and felt some discomfort in the groin. No bowel movement today. However is passing gas. No abdominal distention no nausea or vomiting. No history of similar. No anticoagulants. He sees a bulge in the area is tender to palpation. I spoke with the daughter who said the nurse was concerned that it could be strangulated. Only medication is Lipitor. Prior similar symptoms: No PFSH PFSH Medical History Anemia Pure hypercholesterolemia Shingles Foreign body in left ear, initial encounter Blood in stool Stomach ulcer Hemorrhoids Home Medications ?Medication ?Instructions ?Recorded ?Last Taken ?Type aspirin 81 mg tablet,delayed 81 mg PO DAILY 05/29/19 Unknown History release (Adult Low Dose Aspirin) atorvastatin 10 mg tablet (Lipitor) 10 mg PO DAILY 05/29/19 Unknown History ferrous sulfate 325 mg (65 mg 325 mg PO DAILY 03/31/21 Unknown History iron) tablet ascorbic acid (vitamin C) 500 mg 500 mg PO DAILY 08/27/23 Unknown History tablet multivitamin 1 tab PO DAILY 08/27/23 Unknown History ketoconazole 2 % shampoo 1 applic topical .Q3x/w PRN 02/28/24 Unknown History Allergy/AdvReac Type Severity Reaction Status Date / Time Penicillins Allergy Unknown Verified 04/07/25 19:07 Family History Brother Hypertension Mixed hyperlipidemia Grandfather Myocardial infarction Father Cancer Lung Diabetes Mother Hypertension Mixed hyperlipidemia Brother Myocardial infarction, Onset Age: 50 Surgical History History of left heart catheterization (LHC) (~04/09/21) History of hand surgery History of hemorrhoidectomy Social History Smoking Status: Never smoker alcohol intake: current alcohol intake frequency: a few times a week substance use type: does not use caffeine: Yes Type: coffee Number of servings: 2 ROS ROS ED Constitutional Constitutional ED: Denies chills, fever(s) or sweats ENT ENT ED: Denies sore throat Cardiovascular Cardiovascular: Denies chest pain, leg edema, palpitations or racing heartbeat Respiratory/Chest Respiratory/Chest: Denies cough, dyspnea or dyspnea on exertion Gastrointestinal Gastrointestinal: Denies abdominal pain, diarrhea, nausea or vomiting Genitourinary Genitourinary ED: Reports other Details: Left groin bulge and discomfort ; Denies dysuria, hematuria or urinary frequency Musculoskeletal Musculoskeletal: Denies back pain, extremity pain or neck pain Integumentary Denies rash or wounds Neurologic Neurologic: Denies headache(s), paresthesias or weakness EXAM Physical Exam Const Vital Signs: 04/07/25 19:07 04/07/25 21:52 04/07/25 21:52 Temperature 98.3 F Temperature Source Oral Pulse Rate 54 L 46 L Pulse Rate [1 (Initial Baseline)] Pulse Rate [2] Respiratory Rate 16 10 L Respiratory Rate [1 (Initial Baseline)] Respiratory Rate [2] Blood Pressure 146/89 H 155/95 H Blood Pressure [1 (Initial Baseline)] Blood Pressure Mean 108 115 Baseline BP Pulse Ox 97 99 Oxygen Delivery Method Room Air EtCo2 - Document during CPR and with ROSC 39 EtCo2 - Document during CPR and with ROSC [1 (Initial Baseline)] EtCo2 - Document during CPR and with ROSC [2] 04/07/25 21:52 04/07/25 21:59 04/07/25 22:06 Temperature Temperature Source Pulse Rate 41 L 46 L Pulse Rate [1 (Initial Baseline)] 51 L Pulse Rate [2] 50 L Respiratory Rate 10 L 10 L Respiratory Rate [1 (Initial Baseline)] 11 L Respiratory Rate [2] 8 L Blood Pressure 155/95 H 152/82 H Blood Pressure [1 (Initial Baseline)] 140/83 H Blood Pressure Mean Baseline BP 155/95 Pulse Ox 98 98 Oxygen Delivery Method Room Air Room Air EtCo2 - Document during CPR and with ROSC 45 39 EtCo2 - Document during CPR and with ROSC [1 (Initial Baseline)] 39 EtCo2 - Document during CPR and with ROSC [2] 42 04/07/25 22:11 04/07/25 22:16 04/07/25 22:37 Temperature 98.3 F Temperature Source Pulse Rate 44 L 49 L 49 L Pulse Rate [1 (Initial Baseline)] Pulse Rate [2] Respiratory Rate 8 L 12 12 Respiratory Rate [1 (Initial Baseline)] Respiratory Rate [2] Blood Pressure 144/78 H 133/82 H 133/82 H Blood Pressure [1 (Initial Baseline)] Blood Pressure Mean 99 Baseline BP Pulse Ox 97 98 98 Oxygen Delivery Method Room Air Room Air EtCo2 - Document during CPR and with ROSC 42 36 EtCo2 - Document during CPR and with ROSC [1 (Initial Baseline)] EtCo2 - Document during CPR and with ROSC [2] Positive well nourished and well developed General Appearance ED: well developed and NAD HEENT Reports moist mucous membranes normocephalic and atraumatic Eyes General Eye ED: Yes normal appearance of both eyes Neck full ROM Chest Wall Chest: Negative for tenderness Resp normal respiratory effort and normal air movement Effort and Inspection: symmetric chest movement; Negative for respiratory distress Cardio regular rate, regular rhythm and no murmurs Peripheral Pulses: pulses 2+ throughout GI normal to inspection, nondistended, normoactive bowel sounds and non-tender Palpation: Negative for guarding or rebound tenderness present Narrative: Bulging left inguinal tender to palpation Extremity normal to inspection General Extremety ED: Negative for edema or tenderness General Extremity: Negative for edema Neuro oriented x3 and no sensory deficits noted Sensorium / Orientation: awake and alert Skin no rashes or lesions noted and no wounds MDM MDM MDM Narrative Medical decision making narrative: Interventions / MDM: Differential diagnosis: Left fat-containing inguinal hernia, reduced, conscious sedation Diagnosis considered but do not suspect: Bowel obstruction with bowel containing hernia however CT negative. My EKG interpretation: N/A Imaging independently reviewed and interpreted by myself: CT abdomen/pelvis: Fat-containing inguinal hernia with edema. External documents reviewed: N/A Test considered but not ordered:N/A ED course: Patient with left inguinal hernia is tender to palpation. Attempted reduction however increasing discomfort. IV will be established for morphine will check basic labs coags. Will send over CT. Lactic acid ordered. 2129: Results of CT inguinal hernia with edema with potential strangulation. This is fat-containing. There is no bowels. We attempted to reduce after he was given his morphine unable to reduce due to discomfort. 2139: I discussed with on-call surgeon Dr. Wilkinson, she did review the imaging she recommended sedation to attempt to reduce. She states if cannot reduce she will need to do surgery to reduce however she would not be able to place a mesh due to the edema. States if reducible then can follow-up with her for outpatient surgical management. This was discussed with patient and spouse. Last meal was over 5 hours ago. Procedure sedation orders and consent will be obtained. 2200: Written consent obtained. Risk and benefit discussed. Minimal alcohol history. IV pulse ox capnography cardiac monitor technician. Sinus rhythm on the monitor. He was given aliquots of propofol total of 60 mg for sedation. I was able to reduce the hernia left inguinal no bulge during sedation. Patient tolerated this well. 2210: I rediscussed with surgery, will monitor, will ambulate to make sure does not recur, will plan for no lifting until follow-up with surgery next week. Lactic acid returned normal. Patient awakening is able to ambulate no return of symptoms. He will follow-up with general surgery with return precautions. Re-evaluation: stable Disposition discussed with patient/family/significant other: Patient and spouse Case discussed with consulting clinician: General Surgery This note was generated with [employer] dictation software. It may contain incorrect words, spelling, and punctuation that were not noted in checking the note before signing. Lab Data Attestation: I reviewed the patient's lab results. Labs: Laboratory Results - last 24 hr 04/07/25 20:38 WBC 6.3 RBC 4.66 Hgb 14.7 Hct 42.3 MCV 90.8 MCH 31.5 MCHC 34.8 RDW Std Deviation 41.9 RDW Coeff of Reji 12.7 Plt Count 160 MPV 10.5 Immature Gran % (Auto) 0.200 Neut % (Auto) 53.6 Lymph % (Auto) 27.4 Preston % (Auto) 15.3 H Eos % (Auto) 3.2 Baso % (Auto) 0.3 Absolute Neuts (auto) 3.4 Absolute Lymphs (auto) 1.72 Nucleated RBC % 0 PT 13.4 INR 1.0 APTT 35.1 Sodium 141 Potassium 4.1 Chloride 105 Carbon Dioxide 25.5 Anion Gap 10 BUN 17 Creatinine 1.15 Estim Creat Clear Calc 62.60 Est GFR (MDRD) Non-Af 69 BUN/Creatinine Ratio 14.3 Glucose 103 H Lactic Acid < 1.0 Calcium 8.7 Radiography Diagnostic Testing: Clinical Impression(s) from Imaging Studies Abdomen/Pelvis CT 04/07/25 20:26 IMPRESSION: CT findings concerning for incarcerated left inguinal hernia, however this is a clinical diagnosis. Correlation with physical examination recommended. Otherwise no acute abdominopelvic finding. Reading Location: [id number] Discharge Plan Triage Chief Complaint: Abd Pain ED Provider: Brandyn Horner Dx/Rx/DC Orders Clinical Impression: Indirect left inguinal hernia, History of conscious sedation Instructions: ED Procedural Sedation, (Adult), ED Hernia (Adult) Prescriptions: No Action atorvastatin [Lipitor] 10 mg tablet 10 mg PO DAILY aspirin [Adult Low Dose Aspirin] 81 mg tablet,delayed release (DR/EC) 81 mg PO DAILY ascorbic acid (vitamin C) 500 mg tablet 500 mg PO DAILY multivitamin Tablet 1 tab PO DAILY ketoconazole 2 % shampoo 1 applic topical .Q3x/w PRN Patient Comments: APPLY ONE APPLICATION TO FACE 3 TIMES A WEEK ferrous sulfate 325 mg (65 mg iron) tablet 325 mg PO DAILY Primary Care Provider: Maury Booth Referrals: Maury Booth MD [Primary Care Provider] - Irene Wilkinson MD [Med Staff - Active Staff] - 3-5 Days Activity Restrictions/Additional Instructions: Fat-containing inguinal hernia left side reduced with sedation in the ED. Discussed with Dr. Wilkinson. No lifting at this time. Follow-up with her next week. Call office on Wednesday for appointment. If reoccurs with increasing pain, return to ED for reevaluation. Print Language: Sammarinese Disposition Disposition: Home, Self Care Discharge Date/Time: 04/07/25 22:39
[2025-04-07 20:55] LABS: Absolute Lymphocyte Count 1.72 X10^3/uL (0.83-4.51); Absolute Neutrophil Count 3.4 X10^3/uL (2.0-7.7); Basophil# 0.02 X10^3/uL; Basophil% 0.3 % (0-1); Eosinophils% 3.2 % (0-5); Hematocrit 42.3 % (40-54); Hemoglobin 14.7 g/dL (13.0-16.5); Lymphocyte # 1.72 X10^3/ul (0.83-4.51); Lymphocyte % 27.4 % (19-41); Mean Corp Hgb Conc 34.8 g/dL (32-36); Mean Corpuscular Hgb 31.5 pg (27.0-32.0); Mean Corpuscular Volume 90.8 fL (80-94); Mean Platelet Vol. 10.5 fl (6.2-12.0); Monocyte# 0.96 X10^3/uL; Monocyte% 15.3 % (0-10); NRBC Flagged by Analyzer 0 % (0-5); Neutrophil # 3.36 X10^3/uL (2.7-7.7); Neutrophil % 53.6 % (47-70); Platelet Count 160 K/mm3 (150-450); RBC Distribution Width CV 12.7 % (11.6-14.6); RBC Distribution Width SD 41.9 fl (35.1-43.9); Red Blood Count 4.66 M/mm3 (4.6-6.2); White Blood Count 6.3 K/mm3 (4.4-11.0)
--- OUTSIDE RECORDS SUMMARY | 2025-04-07 20:56 | XMS RPT_ITS | CCD ---
Author Organization [facility] CliniSysc Care Team Providers Care Inspector [employer] Name Role Phone Dr. Dallas Booth Primary Care Provider Dr. 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 Chester Chun Attending Provider Nain SQUIRES, Nir Unavailable Emmy SQUIRES, Dr. Mendiola Primary Care Provider Emmy SQUIRES, Dr. Mendiola Attending Provider [phone] Dr. Yifan Booth MD Referring Provider Lay SQUIRES, Dr. Briggs Attending Provider [phone] Faith SQUIRES, Dr. Liu Soares Attending Provider [phone] Faith SQUIRES, Dr. Liu Soares Referring Provider Yifan Booth Primary Care Provider [phone] Yifan Booth Primary Care Unavailable Yifan Booth Attending Unavailable Yifan Booth Referring Unavailable Yifan Booth Primary Care Unavailable Yifan Booth Attending Unavailable Yifan Booth Primary Care Unavailable Roof MINOR LEAGUE BASEBALL PLAYER, Kan Busch Attending Unavailable Yifan Booth Referring Unavailable Yifan Booth Primary Care Unavailable Chester Chun Attending Unavailable Yifan Booth Referring Unavailable [employer] Unavailable Yifan Booth Attending Unavailable Yifan Booth Referring Unavailable Yifan Booth Primary Care Unavailable Liu Cuevas Attending Unavailable Liu Cuevas [facility] Primary Care Unavailable Liu Cuevas Attending Unavailable Liu Cuevas Referring Unavailable Aaron Sierra MD Unavailable [phone] NIR FUNES Attending Un[facility] Referring Un[facility] Unavailable AARON SIERRA Attending Unavailable AARON SIERRA Admitting Unavailable [facility] Unavailable Allergies Allergy Classification Reported Allergen(s) Allergy Type Date of Onset Reaction(s) Facility (1 source) Etodolac Drug Allergy 2 Unknown [facility] (3 sources) Penicillins Allergy to substance 2 [facility] (5 sources) Etodolac Propensity to adverse reactions [address] [place] [address] (5 sources) Penicillins Drug Allergy 1 [facility] (1 source) Penicillins Drug allergy (disorder) 5 [facility] Repository Medications Current Medications Medication Drug Class(es) Dates Sig (Normalized) Sig (Original) ascorbic acid 500 mg oral tablet (7 sources) Vitamin C Start: 08-27-2023 take 1 tablet by mouth once daily Ascorbic Acid (Vitamin C) 500 mg tablet Active 500 mg PO DAILY August 27, 2023 1:00am take 1 capsule by mouth once ceasar ly ascorbic acid (Vitamin C) 500 MG ER capsule Take 500 mg by mouth daily. Active aspirin 81 mg delayed release oral tablet (3 sources) Platelet Aggregation Inhibitor, Nonsteroidal Anti-inflammatory Drug Start: 05-29-2019 Aspirin (Adult Low Dose Aspirin) 81 mg tablet,delayed release (DR/EC) Active 81 mg PO DAILY May 29, 2019 12:00am atorvastatin 10 mg oral tablet (8 sources) HMG-CoA Reductase Inhibitor Start: 05-29-2019 take 1 tablet by mouth once daily Atorvastatin (Lipitor) 10 mg tablet Active 10 mg PO DAILY May 29, 2019 12:00am ferrous sulfate 325 mg oral tablet (8 sources) Start: 03-31-2021 take 1 tablet by mouth once daily Ferrous Sulfate 325 mg (65 mg iron) tablet Active 325 mg PO DAILY March 31, 2021 12:00am ketoconazole 20 mg/ml medicated shampoo (3 sources) Azole Antifungal Start: 02-28-2024 Ketoconazole 2 % shampoo Active 1 NMA TOPICAL .Q3x/w as needed February 28, 2024 11:01am Start: 08-27-2023 End: 02-28-2024 Ketoconazole 2 % shampoo Dis continued 1 NMA TOPICAL .Q3x/w August 27, 2023 1:00am February 28, 2024 11:01am Start: 08-27-2023 Ketoconazole A ctive 1 APPLIC TOPICAL .Q3x/w August 27, 2023 12:00am Multivitamin preparation (1 source) Start: 08-27-2023 take 1 tablet by mouth once daily Multivitamin Active 1 TABLET PO DAILY August 27, 2023 12:00am Multivitamin tablet (1 source) Start: 08-27-2023 Multivitamin t ablet Active 1 {tbl} PO DAILY August 27, 2023 1:00am Completed/Discontinued Medications Medication Drug Class(es) Dates Sig (Normalized) Sig (Original) acetaminophen 500 mg oral tablet (2 sources) Start: 02-22-2025 End: 02-22-2025 1,000 mg, Oral, Once, On Lisa 02/22/25 at 1200, For 1 dose, Preprocedure, Administer 60 minutes prior to surgery. calcium chloride 0.0014 meq/ml / potassium chloride 0.004 meq/ml / sodium chloride 0.103 meq/ml / sodium lactate 0.028 meq/ml injectable solution (2 sources) Start: 02-22-2025 End: 02-23-2025 take 50 mL intravenously every hour 50 mL/hr, IntraVENous, Continuous, Starting on Lisa 02/22/25 at 1200, Preprocedure, Upon admission to sameday - please start iv if patient does not have iv access. cetirizine hydrochloride 10 mg oral tablet (3 sources) Histamine-1 Receptor Antagonist Start: 03-14-2021 End: 08-27-2023 take 1 tablet by mouth once daily Cetirizine (Zyrtec) 10 mg tablet Discontinued 10 mg PO DAILY March 14, 2021 12:00am August 27, 2023 12:06pm clopidogrel 75 mg oral tablet (3 sources) P2Y12 Platelet Inhibitor Start: 03-14-2021 End: 08-27-2023 Clopidogrel (Plavix) 75 mg tablet Discontinued 75 mg PO DAILY March 14, 2021 12:00am August 27, 2023 12:06pm On Hold: None 4 tablets (300 mg) by mouth on Day 1 then 1 tablet (75) mg a day gabapentin 100 mg oral capsule (2 sources) Anti-epileptic Agent Start: 02-22-2025 End: 02-22-2025 100 mg, Oral, Once, On [facility] 02/22/25 at 1200, For 1 dose, Preprocedure, Administer 60 minutes prior to surgery. 24 hr isosorbide mononitrate 30 mg extended release oral tablet (3 sources) Nitrate Vasodilator Start: 03-14-2021 End: 08-27-2023 take 1 tablet by mouth once daily, then take 1 tablet by mouth every twenty-four hours Isosorbide Mononitrate 30 mg tablet extended release 24 hr Discontinued 30 mg PO DAILY March 14, 2021 12:00am August 27, 2023 12:06pm predniSONE 20 mg oral tablet (3 sources) Start: 08-28-2019 End: 03-11-2021 take 3 tablets by mouth once daily, then take 2 tablets by mouth once daily, then take 1 tablet by mouth once daily Prednisone 20 mg tablet Discontinued 20 mg PO DAILY August 28, 2019 1:00am March 11, 2021 2:01pm 3 tablets daily for 3 days, then 2 tablets daily for 3 days, then 1 tablet daily for 3 days valACYclovir 1000 mg oral tablet (3 sources) Herpesvirus Nucleoside Analog DNA Polymerase Inhibitor, Herpes Simplex Virus Nucleoside Analog DNA Polymerase Inhibitor, Herpes Zoster Virus Nucleoside Analog DNA Polymerase Inhibitor Start: 08-28-2019 End: 03-11-2021 Valacyclovir 1 gram tablet Discontinued 1000 mg PO THREE TIMES A DAY August 28, 2019 1:00am March 11, 2021 2:01pm Start: 08-28-2019 End: 03-11-2021 take 1000 mg by mouth three times daily Valacyclovir Discontinued 1000 MG PO THREE TIMES A DAY August 28, 2019 12:00am March 11, 2021 1:01pm Problems Problem Classification Problem Date Documented Da te Episodic/Chronic Cardiac dysrhythmias (2 sources) Bradycardia; Translations: [Bradycardia, unspecified] 09-07-2023 Episodic Coronary atherosclerosis and other heart disease (3 sources) Stable angina; Translations: [Other forms of angina pectoris] 03-14-2021 Chronic Deficiency and other anemia (2 sources) Anemia; Translations: [Anemia, unspecified] 08-27-2023 Episodic Disorders of lipid metabolism (6 sources) Pure hypercholesterolemia ; Translations: [Pure hypercholesterolemia , unspecified] Onset: 07-31-2024 03-12-2021 Chronic Hyperplasia of prostate (1 source) Benign prostatic hyperplasia with lower urinary tract symptoms; Translations: [Benign prostatic hyperplasia with lower urinary tract symptoms] Onset: 12-29-2024 Chronic Open wounds of extremities (3 sources) Laceration of left index finger; Translations: [Laceration without foreign body of left index finger without damage to nail, initial encounter] 05-01-2022 Episodic Other bone disease and musculoskeletal deformities (1 source) Other cyst of bone, left thigh; Translations: [Other cyst of bone, left thigh] Onset: 02-07-2025 Episodic Other injuries and conditions due to external causes (1 source) Foreign body in ear; Translations: [Foreign body in left ear, initial encounter] 03-12-2021 Episodic Other injuries and conditions due to external causes (2 sources) Foreign body in left ear; Translations: [Foreign body in left ear, initial encounter] 03-12-2021 Episodic Other lower respiratory disease (3 sources) Dyspnea on exertion; Translations: [Other forms of dyspnea] 03-14-2021 Episodic Other lower respiratory disease (1 source) Other forms of dyspnea; Translations: [Other respiratory abnormalities] 08-27-2023 Episodic Other screening for suspected conditions (not mental disorders or infectious disease) (11 sources) Cardiovascular stress test abnormal; Translations: [Abnormal result of other cardiovascular function study] Onset: 11-28-2024 03-12-2021 Episodic Residual codes; unclassified (3 sources) FH: Cardiovascular disease; Translations: [Family history of ischemic heart disease and other diseases of the circulatory system] 03-12-2021 Episodic Residual codes; unclassified (1 source) Family history of ischemic heart disease and other diseases of the circulatory system; Translations: [Family history of other cardiovascular diseases] 08-27-2023 Episodic Unclassified (2 sources) Elevated PSA; Translations: [Elevated PSA] Onset: 01-30-2025 Viral infection (3 sources) Herpes zoster; Translations: [Zoster without complications] 03-12-2021 Episodic Results Test Name Value Interpretation Reference Range Facility 36on 02-27-2025 36 Rn spoke to pt and relayed information verbatim in last message. Pt very happy with news and states he had no complications s/p procedure. Pt did not want to make 1 year appt over the phone at this moment, but states he will make it through [facility] later. Routing to Dr Sierra for update. Thank you. [facility] 36on 02-05-2025 [address] Sierra said the imaging would be fine to proceed [facility] 36 Yes, images were uploaded to PACS. Violet, any update on the biopsy? [facility] Femur Min 2 Viewson 02-04-20 25 Femur Min 2 Views [facility] Imaging Services [address] [place] [address] Femur Min 2 Views MR#: [id number] Acct: [id number] Name: SARAI FERGUSON Rep #: [id number] : 1955 M 69 From: Hayley Haywood DO PCP: Dr. Yifan Booth MD Status: REG CLI Study: Femur Min 2 Views Date of Exam: 02/03/25 Exam# [id number] Ordering Dr: Yifan Booth PROCEDURE: FEMUR MIN 2 VIEWS 02/03/2025 REASON FOR EXAM: CYST TECHNIQUE: 4 view(s) of the left femur. COMPARISON: None FINDINGS: Bones: No acute fracture or dislocation. Joints: Normal alignment at the hip and knee. Soft tissues: Soft tissues are unremarkable. Other: RAD/Femur Min 2 Views IMPRESSION: NO ACUTE FRACTURE OR DISLOCATION. Reading Location: [facility] CC: Dr. Yifan Booth MD Drag [place]: Signed Normal [facility] Spine Lumbar (Routine)on Spine Lumbar (Routine) [facility] Imaging Services [address] [place] [address] Spine Lumbar (Routine) MR#: [id number] Acct: [id number] Name: SARAI FERGUSON Rep #: [id number] : 1955 M 69 From: Antwan Huerta DO PCP: Dr. Yifan Booth MD Status: REG CLI Study: Spine Lumbar (Routine) Date of Exam: 02/03/25 Exam# [id number] Ordering Dr: Yifan Booth PROCEDURE: SPINE LUMBAR (ROUTINE) 02/03/2025 REASON FOR EXAM: Indeterminate lesion seen on prostate MRI. TECHNIQUE: Multiplanar and multisequence images were obtained without IV contrast administration. COMPARISON: Correlation with prior prostate MRI dated 12/18/2024 FINDINGS: 5 lumbar-type vertebral levels. Mild levocurvature of the lumbar spine. Minimal endplate changes seen at the L3 and L4 levels. Hemangioma seen within the T11 vertebral body, partially imaged. No acute lumbar spine fractures or dislocations are identified. There is disc desiccation noted at the L1 through S1 levels. Conus medullaris terminates posterior to the L1-2 level. Distal cord and cauda equina appear intact. Tarlov cysts posterior to the S2-3 level measuring 1.4 cm in the CC dimension. The paraspinal soft tissues appear intact. Disc levels as follows: T11-12, T12-L1: Evaluated on sagittal imaging only. No disc herniation, central spinal or neural foraminal stenosis bilaterally L1-2: No disc herniation, central spinal or neural foraminal stenosis bilaterally L2-3: Minimal broad-based disc bulge. Mild facet arthrosis. No significant central spinal or neural foraminal stenosis bilaterally L3-4: Broad-based disc osteophyte complex slightly eccentric towards the right. Moderate facet arthrosis. Minimal narrowing of the right lateral recess. No central spinal or neural foraminal stenosis bilaterally L4-5: Broad-based disc osteophyte complex. There is facet arthrosis and ligamentum flavum thickening. Mild narrowing of the lateral recesses. No central spinal stenosis. Mild neural foraminal stenosis bilaterally L5-S1: Broad-based disc osteophyte complex. There is facet arthrosis bilaterally. No central spinal or neural foraminal stenosis bilaterally. Previously described 2.8 cm indeterminate lesion within the left lumbosacral junction seen on prostate MRI, corresponds to facet arthrosis. MRI/Spine Lumbar (Routine) IMPRESSION: 1. Previously described 2.8 cm indeterminate lesion within the left lumbosacral junction seen on prostate MRI, corresponds to facet arthrosis of the L5-S1 level on the left. 2. At the L4-5 level, broad-based disc osteophyte complex in combination with facet arthrosis and ligamentum flavum thickening mildly narrows the lateral recesses bilaterally. No central spinal stenosis. Mild neural foraminal stenosis bilaterally. 3. At the L3-4 level, broad-based disc osteophyte complex towards the right minimally narrows the right lateral recess. No central spinal stenosis. 4. Additional less prominent spondylotic changes, as detailed above. [facility] CC: Dr. Yifan Booth MD Drag [place]: Signed Normal [facility] Office Visiton 01-30-2025 Follow-up visit [id number] AlyTrevon 1955 M Date Provider Department Center 01/30/2025 NIR LATHAM [facility] URO None No family history on file Level of Service:13664 [place] OFFICE/OUTPATIENT NEW MODERATE MDM 45 MINUTES Reason for Visit and Comments: Elevated PSA [[id number]] - 7.40, nocturia x 1-2, denies burning, pain or bleeding with voiding, feels like he's emptying Normal [facility] Progress Noteon 01-30-2025 Progress Note Nir Funes, MSN, A PRN, AGNP-C 01/30/2025 Urology Office Visit [facility] [address], [address] [facility] [id number] PATIENT NAME: Sarai Ferguson DATE OF : 1955 REFERRING PROVIDER: Yifan Booth, * PCP: Yifan Booth TODAY'S DATE: 01/30/2025 Visit type: New patient HPI: Sarai is a 69 y.o. male who presents today with chief complaints of: elevated PSA Had MRI of prostate 12/18/2024 at [facility]. Results scanned into system. Having lumbar MRI completed to see the lesions in lumbosacral junction. Patient was seeing urology in [place] but stated they were told to come here because they have heard we have the best team around. Urology history: New to our practice PSA trends: 11/13/2024: 7.8 10/12/2024: 12.9 07/05/2024: 7.4 Family history: He has denies family history of prostate cancer. Current voiding symptoms: Patient reports voiding approximately every 2-3 hours. Nocturia: yes, x1/nightly Urinary urgency: no Urge urinary incontinence: no Stress urinary incontinence: no Dysuria: no Gross hematuria: no Urinary stream: good urinary stream Urinary hesitancy: no Urinary intermittency: no Post void dribbling: no Per patient: Patient does completely empty bladder with voiding. 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 Past Medical History: Diagnosis Date Anemia Bradycardia Dyspnea Elevated PSA Hematoma of leg Hemorrhoids Hypercholesteremia Seborrhea Tinnitus Past Surgical History: Procedure Laterality Date BASAL CELL CARCINOMA EXCISION N/A EYE SURGERY Bilateral 2007 laser lasic HAND SURGERY Left 2006 HEMORRHOIDECTOMY (HISTORICAL) N/A 2004 Allergies Allergen Reactions Etodolac Penicillins Hives Physical Exam: BP 122/74 Pulse 56 Ht 5' 10 (1.778 m) Wt 168 lb (76.2 kg) BMI 24.11 kg/m? Physical Exam Vitals and nursing note reviewed. Constitutional: General: He is not in acute distress. Appearance: Normal appearance. He is not ill-appearing or toxic-appearing. Pulmonary: Effort: Pulmonary effort is normal. Genitourinary: Prostate: Not enlarged, not tender and no nodules present. Neurological: Mental Status: He is alert and oriented to person, place, and time. Psychiatric: Behavior: Behavior normal. Judgment: Judgment normal. Pertinent Labs: CBC: No results found for: WBC, HGB, HCT, MCV, PLT CMP: No results found for: NA, K, CL, CO2, BUN, CREATININE, GLUCOSE, ALT, AST, ALKPHOS Testosterone: No results found for: TESTOSTERONE PSA: No results found for: PSA, PSATOTALIN Hemoglobin A1C: No results found for: HGBA1C Urinalysis: No results found for: COLORU, CLARITYU, GLUCOSEUR, BILIRUBINUR, KETONESU, SPECGRAV, RBCUR, PHUR, PROTUR, UROBILINOGEN, LEUKOCYTESUR, NITRITE Urine Culture: No results found for: URINECX, URCULTREFLEX Imaging and results/record review: Imaging: MRI of prostate from [facility] PIRADS 4 lesion in mid to apical left anterior PZ PIRADS 3 lesion in the right posterolateral PZ apex Distal right external iliac, non-specific. Indeterminate left lumbosacral lesions Other results/records reviewed: referral Assessment and Plan: Diagnosis Plan 1. Elevated PSA Diagnosis 1: Elevated PSA Discussed next steps with patient. Patient has already had MRI of pelvis with and without. Next steps would be for biopsy of the prostate Had discussion with patient regarding indications, risk, and benefits of biopsy. Explained to patient that this is done in our outpatient surgery center as a transrectal ultrasound-guided, transperineal MRI fusion prostate biopsy under anesthesia. Discussed with patient that he will need to have a transportation driver for the procedure to take him to and from appointment. We also reviewed post procedural plan of care. Explained that it is normal to expect blood in the urine, blood in the semen, and blood in the stool up to 2 weeks postbiopsy. Also discussed with patient to use ice in 10 to 15-minute increments to the perineal area for any discomfort. Advised patient not to put ice directly to the skin as to prevent frostbite. Discussed with patient that although this is a lower risk of infection, infections after a prostate biopsy do require immediate ER evaluation as these can be life-threatening infections. All patient questions (more content not included)... Normal [facility] 01-02-2025 36 Insurance informatio n verified - scanned into Media. [facility] 12-26-2024 36 New patient called i n asking to see DR Gillette for a 2nd opinion. Seeing [place] Urologist and had an US and MRI done. Pt states his PSA levels are elevated. The patient has [employer] - RTE error message occurred. I'm unable to process insurance into the patient chart. I advised the pt a Referral is needed and the patient will need to bring his imaging disc to the appt once scheduled. Pt states he is seeing his PCP tomorrow and will request a referral from his PCP to be sent. *The patient has [employer] - RTE error message occurred. I'm unable to process insurance into the patient chart.* Normal [facility] Magnetic resonance imaging r eportOrdered By: Jelani Loja on 12-19-2024 Study report [facility] Imaging Services [address] [place] [address] Pelvis W/WO Contrast MR#: [id number] Acct: [id number] Name: SARAI FERGUSON Rep #: [id number] : 1955 M 69 From: Sarah Loja MD PCP: Dr. Yifan Booth MD Status: REG CLI Study:Pelvis W/WO Contrast Date of Exam: 12/18/24 Exam# [id number] Ordering Dr: Fernando Cuevas MD PROCEDURE: PELVIS W/WO CONTRAST REASON FOR EXAM: ELEVATED PSA TECHNIQUE: Multiplanar, multisequence MRI of the prostate was performed before and following intravenous gadolinium-based contrast. Axial, coronal, and sagittal high-resolution T2-weighted images, axial T1-weighted images, and diffusion-weighted images with high B value, were performed. CONTRAST: 15 mL Clariscan COMPARISON: None. FINDINGS: Variable overall mild motion limitation. Note also that the exam is limited by the lack of dynamic postcontrast imaging requiring the use of an alternative PI-RADS algorithm. Prostate dimensions 3.0 x 4.8 x 3.5 cm for estimated volume 26 mL. Peripheral Zone: Background changes of likely prostatitis. Additional lesions as below: *Lesion 1: Ill-defined T2 signal in the left anterior peripheral zone mid gland to apex, 1.4 cm (series 9, image 19). *T2 score: 3. *DWI score: Borderline; felt best considered DWI score 4. *DCE: Not applicable. *Overall PI-RADS: Borderline; felt the best considered PI-RADS 4. *Extracapsular extension: No definite extracapsular extension, however note thatthere is capsular abutment greater than 1 cm which can be associated with microscopic extracapsular extension. *Lesion 2: Ill-defined T2 signal in the right posterolateral peripheral zone apex, 1.2 cm (series 9, image 20). *T2 score: 3. *DWI score: 3. *DCE: Not applicable. *Overall PI-RADS: PI-RADS 3. *Extracapsular extension: No definite extracapsular extension, however note thatthere is capsular abutment greater than 1 cm which can be associated with microscopic extracapsular extension. Note this includes the region of the right neurovascular bundle which appears grossly unremarkable. Transitional Zone: PI-RADS 2 findings. Seminal vesicles: Unremarkable. Bladder: Underdistended and suboptimally evaluated. Wall thickening and trabeculation suggests possible chronic bladder outlet obstruction. Lymph nodes: Borderline distal right external iliac node by prostate criteria, 8mm short axis. Bone marrow: Partially imaged T1 and T2 dark peripherally enhancing structure associated with the L5-S1 facet joint measuring at least 2.0 x 2.8 cm, excluded from the [id number] on the majority of sequencesobtained. T1 imaging without fat saturation was not performed through this region. Partially imaged apparent ill-defined enhancement in the proximal to mid left femoral diaphysis, included only on 1 sequence spanning at least 2.3 cm craniocaudal. Other: MRI/Pelvis W/WO Contrast IMPRESSION: 1. Note the exam is limited by the lack of dynamic postcontrast imaging requiring the use of an alternative PI-RADS algorithm. 2. Partially imaged indeterminate lesions along the left lumbosacral junction atleast 2.8 cm and proximal to mid left femoral diaphysis at least 2.3 cm, not well evaluated and included only on a few sequences. The former may reflect a complex synovial cyst related to facet arthropathy however signal characteristics are indeterminate and this is not definite. Recommend MRI lumbar spine with and without contrast as well as dedicated radiographs of the left femur with subsequent imaging based on those findings. Correlation with medical history and any available outside imaging may also be helpful. 3. 1.4 cm ill-defined lesion in the mid to apical left anterior peripheral zone may reflect sequela of prominent prostatitis but borderline meets criteria for PI-RADS 4 (lesion 1). 4. 1.2 cm PI-RADS 3 lesion in the right posterolateral peripheral zone apex (lesion 2). 5. No definite extracapsular extension, however note that there is capsular abutment greater than 1 cm by both lesions which can be associated with microscopic extracapsular extension. Note this includes the region of the right neurovascular bundle, which appears grossly unremarkable. 6. Borderline distal right external iliac node by PI-RADS criteria, nonspecific in the absence of known prostatic neoplasm and potentially reactive. If prostate cancer is found to be present, this would warrant attention on follow-up. 7. Additional description as above. Reading Location: [facility] CC: Dr. Yifan Booth MD; Dr. Liu Cuevas MD ~ Drag Sawyer: Signed [facility] Pelvis W/WO Contraston 12-18 Pelvis W/WO Contrast [facility] Imaging Services [address] [place] [id number] Pelvis W/WO Contrast MR#: [id number] Acct: [id number] Name: SARAI FERGUSON Rep #: [id number] : 1955 M 69 From: Jelani Loja MD PCP: Dr. Yifan Booth MD Status: REG CLI Study: Pelvis W/WO Contrast Date of Exam: 12/18/24 Exam# [id number] Ordering Dr: Liu Cuevas MD PROCEDURE: PELVIS W/WO CONTRAST REASON FOR EXAM: ELEVATED PSA TECHNIQUE: Multiplanar, multisequence MRI of the prostate was performed before and following intravenous gadolinium-based contrast. Axial, coronal, and sagittal high-resolution T2-weighted images, axial T1-weighted images, and diffusion- weighted images with high B value, were performed. CONTRAST: 15 mL Clariscan COMPARISON: None. FINDINGS: Variable overall mild motion limitation. Note also that the exam is limited by the lack of dynamic postcontrast imaging requiring the use of an alternative PI-RADS algorithm. Prostate dimensions 3.0 x 4.8 x 3.5 cm for estimated volume 26 mL. Peripheral Zone: Background changes of likely prostatitis. Additional lesions as below: *Lesion 1: Ill-defined T2 signal in the left anterior peripheral zone mid gland to apex, 1.4 cm (series 9, image 19). *T2 score: 3. *DWI score: Borderline; felt best considered DWI score 4. *DCE: Not applicable. *Overall PI-RADS: Borderline; felt the best considered PI-RADS 4. *Extracapsular extension: No definite extracapsular extension, however note that there is capsular abutment greater than 1 cm which can be associated with microscopic extracapsular extension. *Lesion 2: Ill-defined T2 signal in the right posterolateral peripheral zone apex, 1.2 cm (series 9, image 20). *T2 score: 3. *DWI score: 3. *DCE: Not applicable. *Overall PI-RADS: PI-RADS 3. *Extracapsular extension: No definite extracapsular extension, however note that there is capsular abutment greater than 1 cm which can be associated with microscopic extracapsular extension. Note this includes the region of the right neurovascular bundle which appears grossly unremarkable. Transitional Zone: PI-RADS 2 findings. Seminal vesicles: Unremarkable. Bladder: Underdistended and suboptimally evaluated. Wall thickening and trabeculation suggests possible chronic bladder outlet obstruction. Lymph nodes: Borderline distal right external iliac node by prostate criteria, 8 mm short axis. Bone marrow: Partially imaged T1 and T2 dark peripherally enhancing structure associated with the L5-S1 facet joint measuring at least 2.0 x 2.8 cm, excluded from the quala-bh-uvfv on the majority of sequences obtained. T1 imaging without fat saturation was not performed through this region. Partially imaged apparent ill-defined enhancement in the proximal to mid left femoral diaphysis, included only on 1 sequence spanning at least 2.3 cm craniocaudal. Other: MRI/Pelvis W/WO Contrast IMPRESSION: 1. Note the exam is limited by the lack of dynamic postcontrast imaging requiring the use of an alternative PI-RADS algorithm. 2. Partially imaged indeterminate lesions along the left lumbosacral junction at least 2.8 cm and proximal to mid left femoral diaphysis at least 2.3 cm, not well evaluated and included only on a few sequences. The former may reflect a complex synovial cyst related to facet arthropathy however signal characteristics are indeterminate and this is not definite. Recommend MRI lumbar spine with and without contrast as well as dedicated radiographs of the left femur with subsequent imaging based on those findings. Correlation with medical history and any available outside imaging may also be helpful. 3. 1.4 cm ill-defined lesion in the mid to apical left anterior peripheral zone may reflect sequela of prominent prostatitis but borderline meets criteria for PI-RADS 4 (lesion 1). 4. 1.2 cm PI-RADS 3 lesion in the right posterolateral peripheral zone apex (lesion 2). 5. No definite extracapsular extension, however note that there is capsular abutment greater than 1 cm by both lesions which can be associated with microscopic extracapsular extension. Note this includes the region of the right neurovascular bundle, which appears grossly unremarkable. 6. Borderline distal right external iliac node by PI-RADS criteria, nonspecific in the absence of known prostatic neoplasm and potentially reactive. If prostate cancer is found to be present, this would warrant attention on follow-up. 7. Additional description as above. Reading Location: [id number] CC: Dr. Yifan Booth MD; Dr. Liu Cuevas MD Drag Sawyer: Signed Normal [facility] PSA Total+%Freeon 11-15-2024 PSA, FREE 1.37 ng/mL Normal N/A [facility] Comment on above: Result Comment: Kareen COREY methodology. Performed By: #### L 503.6550, L500.4050, L503.6150, L100.0500, L100.9950, L501.9910, L500.4100 #### [facility] [address] [place], [place], [id number] PSA, FREE % 18.8 Normal . [facility] Comment on above: Result Comment: The table below lists the probability of prostate cancer for men with non-suspicious MARK ANTHONY results and total PSA between 4 and 10 ng/mL, by patient age (Imelda et al, J CARLOS 1998, 279:1542). % Free PSA 50-64 yr 65-75 yr 0.00-10.00% 56% 55% 10.01-15.00% 24% 35% 15.01-20.00% 17% 23% 20.01-25.00% 10% 20% >25.00% 5% 9% Please note: Imelda et al did not make specific recommendations regarding the use of percent free PSA for any other population of men. Performed at: [address] [id number] Mold Breaker: Maxi Reaves PhD, Phone: [phone] Performed By: #### L 503.6550, L500.4050, L503.6150, L100.0500, L100.9950, L501.9910, L500.4100 #### [facility] [address] [place], [address] PSA, TOTAL ULTR 7.300 ng/mL Abnormal 0.000-4.000 [facility] Comment on above: Result Comment: Kareen COREY methodology. According to the [place] [employer], Serum PSA should decrease and remain at undetectable levels after radical prostatectomy. The AUA defines biochemical recurrence as an initial PSA value 0.200 ng/mL or greater followed by a subsequent confirmatory PSA value 0.200 ng/mL or greater. Values obtained with different assay methods or kits cannot be used interchangeably. Results cannot be interpreted as absolute evidence of the presence or absence of malignant disease. Performed By: #### L 503.6550, L500.4050, L503.6150, L100.0500, L100.9950, L501.9910, L500.4100 #### [facility] [address] [place], [address] Diagnostic total prostate sp ecific antigen (PSA) measurementOrdered By: Liu Cuevas on 11-13-2024 Prostate Specific Antigen Total 7.80 ng/mL High 0.0-4.0 [facility] Comment on above: This test was perfor med using the TPSA assay method for the[facility] chemistry system. Values obtained with differentassay methods cannot be used interchangably.When changing PSA assays in the course of monitoring apatient, additional sequential testing should be carriedout to confirm baseline values. Free PSA/Total PSA [Mass fra ction]Ordered By: Liu Cuevas on 11-13-2024 % Free Prostate Specific Ag Calc 18.8 % . [facility] Comment on above: The table below list s the probability of prostate cancer formen with non-suspicious MARK ANTHONY results and total PSA between4 and 10 ng/mL, by patient age (Imelda et al, J CARLOS 1998,279:1542). % Free PSA 50-64 yr 65-75 yr 0.00-10.00% 56% 55% 10.01-15.00% 24% 35% 15.01-20.00% 17% 23% 20.01-25.00% 10% 20% >25.00% 5% 9%Please note: Imelda et al did not make specific recommendations regarding the use of percent free PSA for any other population of men.Performed at: [email or web address] [id number] Director: Maxi Reaves PhD, Phone: [phone] Free prostate specific antig en (PSA) measurementOrdered By: Liu Cuevas on 11-13-2024 Free Prostate Specific Antigen 1.37 ng/mL N/A [facility] Comment on above: [facility] ECLIA methodol ogy. PSA, totalOrdered By: Liu quintana on 11-13-2024 Prostate Specific Ag, Ultra-Sensitv 7.300 ng/mL High 0.000-4.000 [facility] Comment on above: [facility] ECLIA methodol ogy.According to the [place] [employer], Serum PSAshould decrease and remain at undetectable levels afterradical prostatectomy. The AUA defines biochemicalrecurrence as an initial PSA value 0.200 ng/mL or greaterfollowed by a subsequent confirmatory PSA value 0.200 ng/mLor greater. Values obtained with different assay methods orkits cannot be used interchangeably. Results cannot beinterpreted as absolute evidence of the presence or absenceof malignant disease. PSA,Total- Diagnosticon 10-19 PSA, DIAGNOSTIC 7.80 ng/mL High 0.0-4.0 [facility] Comment on above: Result Comment: This test was performed using the TPSA assay method for the [employer] system. Values obtained with different assay methods cannot be used interchangably. When changing PSA assays in the course of monitoring a patient, additional sequential testing should be carried out to confirm baseline values. Performed By: #### L 503.6550, L500.4050, L503.6150, L100.0500, L100.9950, L501.9910, L500.4100 #### [facility] [address] [place], [address] Cardiology Visit Reporton Cardiology Visit Report [facility] [address] [place] [address] OFFICE VISIT Date of Service: 11/02/24 MR#: [id number] Acct: [id number] Name: SARAI FERGUSON Rep #: [id number] : 1955 Provider: Dr. Chester Chun MD Age/Sex: 68/M Location: [facility] Status: Signed HPI HPI History of Present Illness Surgical H P: Yes Details: This is a 68-year-old white male who presents today for outpatient cardiovascular consultation based upon concerns of shortness of breath/dyspnea on exertion compatible with stable angina pectoris equivalent with an abnormal exercise tolerance test superimposed upon a history of hyperlipidemia. He was previously extensively worked up for the above including an echocardiogram, cardiac catheterization, and a stress test. All those test results were normal. He denies chest, arm, jaw, or neck discomfort. He denies palpitations. He denies bilateral lower extremity edema. He denies claudication. He denies shortness of breath with activity, shortness of breath at rest, orthopnea, or PND. He denies chronic cough. He denies significant, sudden weight gain. He denies lightheadedness, dizziness, near-syncope, or syncope. He denies blood in urine, blood in stool, or epistaxis. He denies fever with chills. He denies myalgia. He denies fatigue. His exercise level has remained stable. He does mention that occasionally his heart rate goes low but he has had no presyncope or syncope Intake Vital Signs 08/27/23 11:00 02/28/24 10:56 11/02/24 09:06 Height 5 ft 10 in 5 ft 10 in 5 ft 10 in Weight: 166 lb 174 lb BMI 23.8 25.0 BP 123/68 H 140/91 H Blood Pressure Location Lt brachial Lt brachial Position Sitting Sitting Respiration 16 16 Pulse 47 L 52 L Pulse Source NIBP NIBP Intake Visit Reasons: 1 y fu PREV PFM PT Segmental Paver Installer Required: No Accompanied by: Self Is patient in pain?: No Allergies Penicillins Allergy (Verified 11/02/24 14:57) Unknown Medications ???Medication ???Instructions ???Recorded ???Confirmed ???Type aspirin 81 mg tablet,delayed 81 mg PO DAILY 05/29/19 11/02/24 History release (Adult Low Dose Aspirin) atorvastatin 10 mg tablet (Lipitor) 10 mg PO DAILY 05/29/19 11/02/24 History ferrous sulfate 325 mg (65 mg 325 mg PO DAILY 03/31/21 11/02/24 History iron) tablet ascorbic acid (vitamin C) 500 mg 500 mg PO DAILY 08/27/23 11/02/24 History tablet multivitamin 1 tab PO DAILY 08/27/23 11/02/24 History ketoconazole 2 % shampoo 1 applic topical .Q3x/w PRN 02/28/24 11/02/24 History Ejection fraction %: 65 Have you fallen in the past year?: No PFSH Medical History Anemia Pure hypercholesterolemia Shingles Foreign body in left ear, initial encounter Blood in stool Stomach ulcer Hemorrhoids Surgical History History of left heart catheterization (LHC) ( 04/09/21) History of hand surgery History of hemorrhoidectomy Family History Brother Hypertension Mixed hyperlipidemia Grandfather Myocardial infarction Father Cancer Lung Diabetes Mother Hypertension Mixed hyperlipidemia Brother Myocardial infarction, Onset Age: 50 Social History Smoking Status: Never smoker alcohol intake: current alcohol intake frequency: a few times a week substance use type: does not use caffeine: Yes Type: coffee Number of servings: 2 ROS Const Const: Negative for fatigue, weakness, headache(s) or weight gain ENT ENT: Negative for headache(s), dizziness, Nosebleed/epistaxis or balance problems Cardio Chest Pain: No Palpitations: No Edema: None Muscle aches with walking: None Resp Respiratory: Negative for SOB with activity, SOB at rest or SOB orthopnea SOB lying down GI GI: Positive for heartburn; Negative nausea or vomiting Musc Musc: Negative for muscle aches/ myalgia, muscle weakness, joint pain or balance problems Neuro Neuro: Negative for dizziness, lightheadedness, near syncope, syncope, headache(s) or weakness Endo Endo: Negative for fatigue Cardiology Exam Const Appearance: cooperative, healthy appearing, comfortable and no acute distress Nutritional Appearance: well nourished and overweight Orientation: alert, awake and oriented x3 Head Head: normal to inspection Ears: hearing grossly normal bilaterally Nose: external nose normal Face and Sinus: face symmetric Mouth: moist mucous membranes Eyes General: appearance normal, both eyes and all related structures Eyelids: eyelids normal EOM: EOM intact bilaterally Neck Neck: normal visual inspection and no JVD Carotids: normal carotid upstroke C (more content not included)... Normal [facility] PSA Total (Rflx Free)on 09-18 COMMENT Comment Normal . [facility] Comment on above: Result Comment: The percent free PSA is performed on a reflex basis only when the total PSA is between 4.0 and 10.0 ng/mL. Performed at: - [facility] [id number] Mold Breaker: Maxi Reaves PhD, Phone: [phone] Performed By: #### L 503.6550, L500.4050, L503.6150, L100.0500, L100.9950, L501.9910, L500.4100 #### [facility] [address] [facility] [place], [address] PSA, TOTAL 12.5 ng/mL Abnormal 0.0-4.0 [facility] Comment on above: Result Comment: Kareen velez ECLIA methodology. According to the [place] [employer], Serum PSA should decrease and remain at undetectable levels after radical prostatectomy. The AUA defines biochemical recurrence as an initial PSA value 0.2 ng/mL or greater followed by a subsequent confirmatory PSA value 0.2 ng/mL or greater. Values obtained with different assay methods or kits cannot be used interchangeably. Results cannot be interpreted as absolute evidence of the presence or absence of malignant disease. Performed By: #### L 503.6550, L500.4050, L503.6150, L100.0500, L100.9950, L501.9910, L500.4100 #### [facility] [address] [place], [address] No Panel InformationOrdered By: Yifan Booth on 10-12-2024 Prostate Specific Antigen Comment . [facility] Comment on above: The percent free PSA is performed on a reflex basis onlywhen the total PSA is between 4.0 and 10.0 ng/mL.Performed at: [facility] [id number] Director: Maxi Reaves PhD, Phone: [phone] PSA, totalOrdered By: Hugo Booth on 10-12-2024 Prostate Specific Antigen Total 12.5 ng/mL High 0.0-4.0 [facility] Comment on above: [place] ECLIA methodol ogy.According to the [place] [employer], Serum PSAshould decrease and remain at undetectable levels afterradical prostatectomy. The AUA defines biochemicalrecurrence as an initial PSA value 0.2 ng/mL or greaterfollowed by a subsequent confirmatory PSA value 0.2 ng/mLor greater. Values obtained with different assay methods orkits cannot be used interchangeably. Results cannot beinterpreted as absolute evidence of the presence or absenceof malignant disease. PSA,Total- Diagnosticon 09-18 PSA, DIAGNOSTIC 12.90 ng/mL High 0.0-4.0 [facility] Comment on above: Result Comment: This test was performed using the TPSA assay method for the Web[employer] system. Values obtained with different assay methods cannot be used interchangably. When changing PSA assays in the course of monitoring a patient, additional sequential testing should be carried out to confirm baseline values. Performed By: #### L 503.6550, L500.4050, L503.6150, L100.0500, L100.9950, L501.9910, L500.4100 #### [facility] [address] [place], [address] CBC-Complete Blood Cnt No Di ffon 07-05-2024 Erythrocyte distribution width (RBC) [Ratio] 13.2 % Normal 11.6-14.6 [facility] Comment on above: Order Comment: Order Date: 07/05/24 Order Info: [id number] - CBC Order Info: [id number] - RETIC Performed By: #### L 503.6550, L500.4050, L503.6150, L100.0500, L100.9950, L501.9910, L500.4100 #### [facility] [address] [place], [address] Hematocrit (Bld) [Volume fraction] 46.5 % Normal 40-54 [facility] Comment on above: Order Comment: Order Date: 07/05/24 Order Info: [id number] - CBC Order Info: [id number] - RETIC Performed By: #### L 503.6550, L500.4050, L503.6150, L100.0500, L100.9950, L501.9910, L500.4100 #### [facility] [address] [place], [address] Hemoglobin (Bld) [Mass/Vol] 15.5 g/dL Normal 13.0-16.5 [facility] Comment on above: Order Comment: Order Date: 07/05/24 Order Info: [id number] - CBC Order Info: [id number] - RETIC Performed By: #### L 503.6550, L500.4050, L503.6150, L100.0500, L100.9950, L501.9910, L500.4100 #### [facility] [address] [place], [address] MCH (RBC) [Entitic mass] 31.1 pg Normal 27.0-32.0 [facility] Comment on above: Order Comment: Order Date: 07/05/24 Order Info: [id number] - CBC Order Info: [id number] - RETIC Performed By: #### L 503.6550, L500.4050, L503.6150, L100.0500, L100.9950, L501.9910, L500.4100 #### [facility] [address] [place], [address] MCHC (RBC) [Mass/Vol] 33.3 g/dL Normal 32-36 [facility] Comment on above: Order Comment: Order Date: 07/05/24 Order Info: [id number] - CBC Order Info: [id number] - RETIC Performed By: #### L 503.6550, L500.4050, L503.6150, L100.0500, L100.9950, L501.9910, L500.4100 #### [facility] [address] [place], [address] MCV (RBC) [Entitic vol] 93.2 fL Normal 80-94 [facility] Comment on above: Order Comment: Order Date: 07/05/24 Order Info: [id number] - CBC Order Info: [id number] - RETIC Performed By: #### L 503.6550, L500.4050, L503.6150, L100.0500, L100.9950, L501.9910, L500.4100 #### [facility] [address] [place], [address] Platelet mean volume (Bld) [Entitic vol] 11.0 fL Normal 6.2-12.0 [facility] Comment on above: Order Comment: Order Date: 07/05/24 Order Info: [id number] - CBC Order Info: [id number] - RETIC Performed By: #### L 503.6550, L500.4050, L503.6150, L100.0500, L100.9950, L501.9910, L500.4100 #### [facility] [address] [place], [address] Platelets (Bld) [#/Vol] 194 10*3/uL Normal 150-450 [facility] Comment on above: Order Comment: Order Date: 07/05/24 Order Info: [id number] - CBC Order Info: [id number] - RETIC Performed By: #### L 503.6550, L500.4050, L503.6150, L100.0500, L100.9950, L501.9910, L500.4100 #### [facility] [address] [place], [address] RBC (Bld) [#/Vol] 4.99 10*6/uL Normal 4.6-6.2 [facility] Comment on above: Order Comment: Order Date: 07/05/24 Order Info: [id number] - CBC Order Info: [id number] - RETIC Performed By: #### L 503.6550, L500.4050, L503.6150, L100.0500, L100.9950, L501.9910, L500.4100 #### [facility] [address] [place], [address] ( RDW SD 44.9 fl High 35.1-43.9 [facility] Comment on above: Order Comment: Order Date: 07/05/24 Order Info: [id number] - CBC Order Info: [id number] - RETIC Performed By: #### L 503.6550, L500.4050, L503.6150, L100.0500, L100.9950, L501.9910, L500.4100 #### [facility] [address] [place], [address] WBC (Bld) [#/Vol] 5.0 10*3/uL Normal 4.4-11.0 [facility] Comment on above: Order Comment: Order Date: 07/05/24 Order Info: [id number] - CBC Order Info: [id number] - RETIC Performed By: #### L 503.6550, L500.4050, L503.6150, L100.0500, L100.9950, L501.9910, L500.4100 #### [facility] [address] [place], [place], [id number] Comprehensive Metabolic Prof ilon 07-05-2024 Albumin [Mass/Vol] 3.9 g/dL Normal 3.2-5.0 [facility] Comment on above: Order Comment: Order Date: 07/05/24 Order Info: [id number] - CMP Order Info: - LIPID Order Info: [id number] - PSA Order Info: [id number] - FE Order Info: [id number] - CHENG Performed By: #### L 503.6550, L500.4050, L503.6150, L100.0500, L100.9950, L501.9910, L500.4100 #### [facility] [address] [place], [address] Albumin/Globulin [Mass ratio] 1.1 {ratio} Normal 0.9-2.4 [facility] Comment on above: Order Comment: Order Date: 07/05/24 Order Info: [id number] - CMP Order Info: - LIPID Order Info: [id number] - PSA Order Info: [id number] FE Order Info: [id number] - CHENG Performed By: #### L 503.6550, L500.4050, L503.6150, L100.0500, L100.9950, L501.9910, L500.4100 #### [facility] [address] [place], [place], [id number] ALK P 47 U/L Normal 45-117 [facility] Comment on above: Order Comment: Order Date: 07/05/24 Order Info: [id number] - CMP Order Info: - LIPID Order Info: [id number] - PSA Order Info: [id number] FE Order Info: [id number] - CHENG Performed By: #### L 503.6550, L500.4050, L503.6150, L100.0500, L100.9950, L501.9910, L500.4100 #### [facility] [address] [place], [address] ALT [Catalytic activity/Vol] 22 U/L Normal 16-61 [facility] Comment on above: Order Comment: Order Date: 07/05/24 Order Info: [id number] - CMP Order Info: [id number] - LIPID Order Info: [id number] - PSA Order Info: [id number] FE Order Info: [id number] - CHENG Performed By: #### L 503.6550, L500.4050, L503.6150, L100.0500, L100.9950, L501.9910, L500.4100 #### [facility] [facility] [address] [place], [place], [id number] AST [Catalytic activity/Vol] 17 U/L Normal 15-37 [facility] Comment on above: Order Comment: Order Date: 07/05/24 Order Info: 785-10 - CMP Order Info: - LIPID Order Info: [id number] - PSA Order Info: 2498-01 Order Info: [id number] - CHENG Performed By: #### L 503.6550, L500.4050, L503.6150, L100.0500, L100.9950, L501.9910, L500.4100 #### [facility] [address] [place], [place], [id number] Bilirubin [Mass/Vol] 0.70 mg/dL Normal 0.20-1.00 [facility] Comment on above: Order Comment: Order Date: 07/05/24 Order Info: 785-10 - CMP Order Info: - LIPID Order Info: [id number] - PSA Order Info: 2498-01 FE Order Info: 2276-01 - CHENG Result Comment: For patients on eltrombopag therapy, use of Dimension [place] TBIL is not recommended. Performed By: #### L 503.6550, L500.4050, L503.6150, L100.0500, L100.9950, L501.9910, L500.4100 #### [facility] [address] [place], [place], [phone] (160) BUN/CRE 15.7 RATIO Normal 10-20 [facility] Comment on above: Order Comment: Order Date: 07/05/24 Order Info: 785- - CMP Order Info: [id number] - LIPID Order Info: [id number] - PSA Order Info: 2498-01 - FE Order Info: 4 - CHENG Performed By: #### L 503.6550, L500.4050, L503.6150, L100.0500, L100.9950, L501.9910, L500.4100 #### [facility] [address] [place], [place], [phone] (664) CA,Total 9.3 mg/dL Normal 8.5-10.1 [facility] Comment on above: Order Comment: Order Date: 07/05/24 Order Info: 785-10 - CMP Order Info: - LIPID Order Info: [id number] - PSA Order Info: 2498-01 - FE Order Info: [id number] - CHENG Performed By: #### L 503.6550, L500.4050, L503.6150, L100.0500, L100.9950, L501.9910, L500.4100 #### [facility] [address] [place], [place], [phone] (551) Chloride [Moles/Vol] 105 mmol/L Normal 98-107 [facility] Comment on above: Order Comment: Order Date: 07/05/24 Order Info: 1 - CMP Order Info: [id number] - LIPID Order Info: [id number] - PSA Order Info: 2498-01 - FE Order Info: 2274 - CHENG Performed By: #### L 503.6550, L500.4050, L503.6150, L100.0500, L100.9950, L501.9910, L500.4100 #### [facility] [address] [place], [place], [id number] CO2 [Moles/Vol] 29.0 mmol/L Normal 21.0-32.0 [facility] Comment on above: Order Comment: Order Date: 07/05/24 Order Info: 785- - CMP Order Info: - LIPID Order Info: [id number] - PSA Order Info: 2498-01 Order Info: [id number] - CHENG Performed By: #### L 503.6550, L500.4050, L503.6150, L100.0500, L100.9950, L501.9910, L500.4100 #### [facility] [address] [place], [place], [phone] Creatinine [Mass/Vol] 1.08 mg/dL Normal 0.70-1.30 [facility] Comment on above: Order Comment: Order Date: 07/05/24 Order Info: 785-10 - CMP Order Info: - LIPID Order Info: [id number] - PSA Order Info: 2498-01 Order Info: [id number] - CHENG Result Comment: The validity of the calculated GFR GFRAA in patients over 70 years has not been determined. Clinical correlation is essential. Performed By: #### L 503.6550, L500.4050, L503.6150, L100.0500, L100.9950, L501.9910, L500.4100 #### [facility] [address] [place], [place], [address] EST GFR - AA 87 mL/min Normal >60 [facility] Comment on above: Order Comment: Order Date: 07/05/24 Order Info: 785-10 - CMP Order Info: - LIPID Order Info: [id number] - PSA Order Info: 2498-01 Order Info: 2276-01 - CHENG Result Comment: Afri can [place] GFR Calc Performed By: #### L 503.6550, L500.4050, L503.6150, L100.0500, L100.9950, L501.9910, L500.4100 #### [facility] [address] [place], [place], [phone] 4 Low 5-15 [facility] Comment on above: Order Comment: Order Date: 07/05/24 Order Info: 785-10 - CMP Order Info: - LIPID Order Info: [id number] - PSA Order Info: 2498-01 Order Info: [id number] - CHENG Performed By: #### L 503.6550, L500.4050, L503.6150, L100.0500, L100.9950, L501.9910, L500.4100 #### [facility] [address] [place], [address] GFR/1.73 sq M.predicted among non-blacks MDRD (S/P/Bld) [Vol rate/Area] 72 mL/min/{1.73_m2} Normal >60 [facility] Comment on above: Order Comment: Order Date: 07/05/24 Order Info: 785-10 - CMP Order Info: - LIPID Order Info: [id number] - PSA Order Info: 2498-01 Order Info: [id number] - CHENG Result Comment: Non- GFR Calc Performed By: #### L 503.6550, L500.4050, L503.6150, L100.0500, L100.9950, L501.9910, L500.4100 #### [facility] [address] [place], [address] Globulin (S) [Mass/Vol] 3.4 g/dL Normal 2.2-4.2 [facility] Comment on above: Order Comment: Order Date: 07/05/24 Order Info: 785-10 - CMP Order Info: - LIPID Order Info: [id number] - PSA Order Info: 2498-01 Order Info: [id number] - CHENG Performed By: #### L 503.6550, L500.4050, L503.6150, L100.0500, L100.9950, L501.9910, L500.4100 #### [facility] [address] [place], [address] Glucose [Mass/Vol] 100 mg/dL Normal 74-106 [facility] Comment on above: Order Comment: Order Date: 07/05/24 Order Info: 785-10 - CMP Order Info: - LIPID Order Info: 2856-10 - PSA Order Info: 2498-01 FE Order Info: 2276-01 - CHENG Result Comment: Fast ing Glucose result from 100 to 125 mg/dL suggests IMPAIRED HOMEOSTASIS per A.D.A. criteria. Performed By: #### L 503.6550, L500.4050, L503.6150, L100.0500, L100.9950, L501.9910, L500.4100 #### [facility] [address] [place], [address] Potassium [Moles/Vol] 4.7 mmol/L Normal 3.5-5.1 [facility] Comment on above: Order Comment: Order Date: 07/05/24 Order Info: 785-10 - CMP Order Info: - LIPID Order Info: [id number] - PSA Order Info: 2498-01 Order Info: [id number] - CHENG Performed By: #### L 503.6550, L500.4050, L503.6150, L100.0500, L100.9950, L501.9910, L500.4100 #### [facility] [address] [place], [address] Sodium [Moles/Vol] 138 mmol/L Normal 136-145 [facility] Comment on above: Order Comment: Order Date: 07/05/24 Order Info: 785-10 - CMP Order Info: - LIPID Order Info: [id number] - PSA Order Info: 2498-01 Order Info: [id number] - CHENG Performed By: #### L 503.6550, L500.4050, L503.6150, L100.0500, L100.9950, L501.9910, L500.4100 #### [facility] [address] [place], [address] T PROT 7.3 g/dL Normal 6.4-8.2 [facility] Comment on above: Order Comment: Order Date: 07/05/24 Order Info: 785- - CMP Order Info: - LIPID Order Info: [id number] - PSA Order Info: 2498-4 - FE Order Info: 2275-4 - CHENG Performed By: #### L 503.6550, L500.4050, L503.6150, L100.0500, L100.9950, L501.9910, L500.4100 #### [facility] [address] [place], [address] Urea nitrogen [Mass/Vol] 17 mg/dL Normal 7- [facility] Comment on above: Order Comment: Order Date: 07/05/24 Order Info: 785-10 - CMP Order Info: - LIPID Order Info: [id number] - PSA Order Info: [id number] - FE Order Info: 4 - CHENG Performed By: #### L 503.6550, L500.4050, L503.6150, L100.0500, L100.9950, L501.9910, L500.4100 #### [facility] [address] [place], [address] Ferritinon 07-05-2024 Ferritin [Mass/Vol] 22 ng/mL Low 26-388 [facility] Comment on above: Order Comment: Order Date: 07/05/24 Order Info: 785-10 - CMP Order Info: [id number] - LIPID Order Info: 2856-10 - PSA Order Info: 2498-4 - FE Order Info: [id number] - CHENG Performed By: #### L 503.6550, L500.4050, L503.6150, L100.0500, L100.9950, L501.9910, L500.4100 #### [facility] [address] [place], [address] Ironon 07-05-2024 Iron [Mass/Vol] 162 ug/dL Normal 65-175 [facility] Comment on above: Order Comment: Order Date: 07/05/24 Order Info: 785- - CMP Order Info: - LIPID Order Info: [id number] - PSA Order Info: 2498-01 Order Info: [id number] - CHENG Performed By: #### L 503.6550, L500.4050, L503.6150, L100.0500, L100.9950, L501.9910, L500.4100 #### [facility] [address] [place], [address] Lipid Profileon 07-05-2024 Cholesterol [Mass/Vol] 160 mg/dL Normal 200 [facility] Comment on above: Order Comment: Order Date: 07/05/24 Order Info: 785-10 - CMP Order Info: - LIPID Order Info: 2856-10 - PSA Order Info: 2498-01 Order Info: [id number] - CHENG Result Comment: <200 mg/dL Desirable 200-240 mg/dL Borderline >240 mg/dL High Risk Performed By: #### L 503.6550, L500.4050, L503.6150, L100.0500, L100.9950, L501.9910, L500.4100 #### [facility] [address] [place], [address] Cholesterol in HDL [Mass/Vol] 64 mg/dL Normal [facility] Comment on above: Order Comment: Order Date: 07/05/24 Order Info: 785-10 - CMP Order Info: - LIPID Order Info: [id number] - PSA Order Info: 2498-01 FE Order Info: [id number] - CHENG Result Comment: The drugs N-Acetylcysteine and Metamizole may falsely depress this assay. Reference Range HDL <40 mg/dL Low HDL Cholesterol HDL >or= 60 mg/dL High HDL Cholesterol Performed By: #### L 503.6550, L500.4050, L503.6150, L100.0500, L100.9950, L501.9910, L500.4100 #### [facility] [address] [place], [address] Cholesterol in LDL [Mass/Vol] 79 mg/dL Normal 0-130 [facility] Comment on above: Order Comment: Order Date: 07/05/24 Order Info: 785-10 - CMP Order Info: - LIPID Order Info: [id number] - PSA Order Info: 2498-01 Order Info: [id number] - CHENG Performed By: #### L 503.6550, L500.4050, L503.6150, L100.0500, L100.9950, L501.9910, L500.4100 #### [facility] [address] [place], [address] Cholesterol in VLDL [Mass/Vol] 17 mg/dL Normal 5-40 [facility] Comment on above: Order Comment: Order Date: 07/05/24 Order Info: 785-10 - CMP Order Info: - LIPID Order Info: [id number] - PSA Order Info: 2498-01 Order Info: [id number] - CHENG Performed By: #### L 503.6550, L500.4050, L503.6150, L100.0500, L100.9950, L501.9910, L500.4100 #### [facility] [address] [place], [address] Triglyceride [Mass/Vol] 85 mg/dL Normal [facility] Comment on above: Order Comment: Order Date: 07/05/24 Order Info: 785-10 - CMP Order Info: - LIPID Order Info: [id number] - PSA Order Info: 2498-01 Order Info: [id number] - CHENG Result Comment: The drugs N-Acetylcysteine and Metamizole may falsely depress this assay. Serum Triglycerides Reference Interval Normal <150 mg/dL Borderline high 150 - 199 mg/dL High 200 - 499 mg/dL Very High > or = 500 mg/dL Performed By: #### L 503.6550, L500.4050, L503.6150, L100.0500, L100.9950, L501.9910, L500.4100 #### [facility] [address] [place], [place], [address] PSA,Total - Annual Screenon 07-05-2024 PSA,TOT SCREEN 7.40 ng/mL High 0.00-4.00 [facility] Comment on above: Order Comment: Order Date: 07/05/24 Order Info: 0786-1 - CMP Order Info: [id number] - LIPID Order Info: 2857-1 - PSA Order Info: 2498-4 - FE Order Info: 2276-4 - CHENG Result Comment: This test was performed using the TPSA assay method for the [employer] chemistry system. Values obtained with different assay methods cannot be used interchangably. When changing PSA assays in the course of monitoring a patient, additional sequential testing should be carried out to confirm baseline values. Performed By: #### L 503.6550, L500.4050, L503.6150, L100.0500, L100.9950, L501.9910, L500.4100 #### [facility] [address] [place], [place], [address] Retic Panelon 07-05-2024 IM RET FRACTION 9.30 Normal 3.00-15.90 [facility] Comment on above: Order Comment: Order Date: 07/05/24 Order Info: [id number] - CBC Order Info: 4679-7 - RETIC Performed By: #### L 503.6550, L500.4050, L503.6150, L100.0500, L100.9950, L501.9910, L500.4100 #### [facility] [address] [place], [address] RET-HE 36.4 pg High 30-35 [facility] Comment on above: Order Comment: Order Date: 07/05/24 Order Info: [id number] - CBC Order Info: 4679-7 - RETIC Performed By: #### L 503.6550, L500.4050, L503.6150, L100.0500, L100.9950, L501.9910, L500.4100 #### [facility] [address] [place], [place], [address] Retic Count 1.45 Normal 0.5-1.5 [facility] Comment on above: Order Comment: Order Date: 07/05/24 Order Info: [id number] - CBC Order Info: 4679-7 - RETIC Performed By: #### L 503.6550, L500.4050, L503.6150, L100.0500, L100.9950, L501.9910, L500.4100 #### [facility] [address] [place], [place], [address] Cardiology Visit Reporton Cardiology Visit Report [facility] [address] [place], [place] [address] OFFICE VISIT Date of Service: 02/28/24 MR#: [id number] Acct: [id number] Name: SARAI FERGUSON Rep #: [id number] : 1955 Provider: EVERETTE farnsworth Age/Sex: 68/M [place] [facility] [place]: Signed HPI HPI History of Present Illness Surgical H P: Yes Details: This is a 68-year-old white male who presents today for outpatient cardiovascular consultation based upon concerns of shortness of breath/dyspnea on exertion compatible with stable angina pectoris equivalent with an abnormal exercise tolerance test superimposed upon a history of hyperlipidemia. He states that recently he has noted that when he exerts himself, such as going up 1 flight of stairs, he feels a chest heaviness and becomes short of breath and dyspneic and has to stop and rest and catch his breath before he can speak with his . He does not note the symptoms at rest or at night. He has not had orthopnea or PND or peripheral pitting edema. There has been no near syncope or syncope. He denies chest, arm, jaw, or neck discomfort. He denies palpitations. He denies bilateral lower extremity edema. He denies claudication. He denies shortness of breath with activity, shortness of breath at rest, orthopnea, or PND. He denies chronic cough. He denies significant, sudden weight gain. He denies lightheadedness, dizziness, near-syncope, or syncope. He denies blood in urine, blood in stool, or epistaxis. He denies fever with chills. He denies myalgia. He denies fatigue. His exercise level has remained stable. Intake Vital Signs 08/27/23 11:00 02/28/24 10:56 Height 5 ft 10 in 5 ft 10 in Weight: 166 lb BMI 23.8 BP 123/68 H Blood Pressure Location Lt brachial Position Sitting Respiration 16 Pulse 47 L Pulse Source NIBP Intake Visit Reasons: 6 M FU Segmental Paver Installer Required: No Is patient in pain?: No Allergies Penicillins Allergy (Verified 02/28/24 11:00) Unknown Medications aspirin 81 mg tablet,delayed release (Adult Low Dose Aspirin) 81 mg PO DAILY 05/29/19 [History Confirmed 02/28/24] atorvastatin 10 mg tablet (Lipitor) 10 mg PO DAILY 05/29/19 [History Confirmed 02/28/24] ferrous sulfate 325 mg (65 mg iron) tablet 325 mg PO DAILY 03/31/21 [History Confirmed 02/28/24] ascorbic acid (vitamin C) 500 mg tablet 500 mg PO DAILY 08/27/23 [History Confirmed 02/28/24] multivitamin 1 tab PO DAILY 08/27/23 [History Confirmed 02/28/24] ketoconazole 2 % shampoo 1 applic topical .Q3x/w PRN 02/28/24 [History Confirmed 02/28/24] Ejection fraction %: 65 PFSH Medical History Anemia Blood in stool Foreign body in left ear, initial encounter Hemorrhoids Pure hypercholesterolemia Shingles Stomach ulcer Surgical History History of hand surgery History of hemorrhoidectomy History of left heart catheterization (LHC) ( 04/09/21) Family History Brother Hypertension Mixed hyperlipidemia Grandfather Myocardial infarction Father Cancer Lung Diabetes Mother Hypertension Mixed hyperlipidemia Brother Myocardial infarction, Onset Age: 50 Social History Smoking Status: Never smoker alcohol intake: current alcohol intake frequency: a few times a week substance use type: does not use caffeine: Yes Type: coffee Number of servings: 2 ROS Const Const: Negative for fatigue, weakness, headache(s), frequent falls, difficulty sleeping or excessive sweating Eyes Eyes: Negative for loss of peripheral vision, transient loss of vision, blurry vision, double vision or tunnel vision ENT ENT: Negative for headache(s), dizziness, Nosebleed/epistaxis or balance problems Cardio Chest Pain: No Palpitations: No Edema: None Muscle aches with walking: None Resp Respiratory: Negative for SOB with activity, SOB at rest, SOB orthopnea SOB lying down, Cough or paroxysmal nocturnal dyspnea GI GI: Negative nausea, vomiting, heartburn or black,tarry stools : Negative for hematuria Musc Musc: Negative for muscle aches/ myalgia, muscle weakness, joint pain or balance problems Skin Skin: Negative non-healing lesions, rash or unusual bruising Neuro Neuro: Negative for dizziness, lightheadedness, near syncope, syncope, frequent falls, headache(s), weakness, blurry vision, double vision or lack of coordination Les Hematologic/Lymphatic: Negative for easy bleeding or easy bruising Endo Endo: Negative for fatigue, excessive sweating or increased thirst/drinking Psych Psych: Negative for anxiety or depression Allergy Allergy/Immunology: Negative for hives and Negative for rash Cardiology Exam Const (more content not included)... Normal [facility] Absolute lymphocyte countOrd ered By: Dr. Booth on 12-31-2022 Lymphocytes Auto (Unsp spec) [#/Vol] 1.82 10*3/uL 0.83-4.51 [facility] Basophil percentageOrdered B y: Dr. Booth on 12-31-2022 Basophils/100 WBC (Bld) 0.9 % 0-1 [facility] Bilirubin [Mass/Vol] 0.50 mg/dL 0.20-1.00 [facility] Comment on above: For patients on eltr ombopag therapy, use of Dimension [place] TBIL is not recommended. Chloride [Moles/Vol] 105 mmol/L 98-107 [facility] Cholesterol [Mass/Vol] 139 mg/dL <200 [facility] Comment on above: <200 mg/dL Desirable 200-240 mg/dL Borderline >240 mg/dL High Risk Eosinophils/100 WBC (Bld) 2.6 % 0-5 [facility] Glucose [Mass/Vol] 95 mg/dL 74-106 [facility] Neutrophils (Bld) [#/Vol] 3.0 10*3/uL 2.0-7.7 [facility] Neutrophils/100 WBC (Bld) 52.0 % 47-70 [facility] Potassium [Moles/Vol] 4.0 mmol/L 3.5-5.1 [facility] Protein [Mass/Vol] 6.7 g/dL 6.4-8.2 [facility] Sodium [Moles/Vol] 140 mmol/L 136-145 [facility] Triglyceride [Mass/Vol] 111 mg/dL <199 [facility] Comment on above: The drugs N-Acetylcy steine and Metamizole may falsely depress this assay.Serum Triglycerides Reference Interval Normal <150 mg/dL Borderline high 150 - 199 mg/dL High 200 - 499 mg/dL Very High > or = 500 mg/dL WBC (Bld) [#/Vol] 5.8 10*3/uL 4.4-11.0 [facility] Blood erythrocytes count (nu mber/volume)Ordered By: Dr. Booth on 12-31-2022 RBC (Bld) [#/Vol] 4.80 10*6/uL 4.6-6.2 [facility] Blood hemoglobin measurement (mass/volume)Ordered By: Dr. Booth on 12-31-2022 Hemoglobin (Bld) [Mass/Vol] 15.1 g/dL 13.0-16.5 [facility] Blood lymphocytes/100 leukoc ytesOrdered By: Dr. Booth on 12-31-2022 Lymphocytes/100 WBC (Bld) 31.5 % 19-41 [facility] Blood monocytes/100 leukocyt esOrdered By: Dr. Booth on 12-31-2022 Monocytes/100 WBC (Bld) 12.8 % 0-10 [facility] Blood platelet mean volumeOr dered By: Dr. Booth on 12-31-2022 Platelet mean volume (Bld) [Entitic vol] 10.4 fL 6.2-12.0 [facility] Determination of erythrocyte mean corpuscular volume (MCV)Ordered By: Dr. Booth on 12-31-2022 MCV (RBC) [Entitic vol] 95.2 fL 80-94 [facility] Hematocrit Auto (Bld) [Volum e fraction]Ordered By: Dr. Booth on 12-31-2022 Hematocrit (Bld) [Volume fraction] 45.7 % 40-54 [facility] Iron measurement (mass/mass) Ordered By: Dr. Booth on 12-31-2022 Iron (Unsp spec) [Mass/Mass] 74 ug/dL 65-175 [facility] - Chemistry and C hemistry - challengeOrdered By: Dr. Booth on 12-31-2022 ALP [Catalytic activity/Vol] 46 U/L 45-117 [facility] ALT [Catalytic activity/Vol] 25 U/L 16-61 [facility] CO2 [Moles/Vol] 29.0 mmol/L 21.0-32.0 [facility] Globulin (S) [Mass/Vol] 3.1 g/dL 2.2-4.2 [facility] Urea nitrogen/Creatinine [Mass ratio] 14.7 mg/mg 10-20 [facility] - Hematology and Cell countsOrdered By: Dr. Booth on 12-31-2022 Erythrocyte distribution width (RBC) [Entitic vol] 45.1 fL 35.1-43.9 [facility] Erythrocyte distribution width (RBC) [Ratio] 12.8 % 11.6-14.6 [facility] Immature granulocytes/100 WBC (Bld) 0.200 % 0.0-0.9 [facility] Comment on above: IG% - Immature Granu locytes (promyelocytes, myelocytes and metamyelocytes) > 1% indicates that a LEFT SHIFT is Present. MCH (RBC) [Entitic mass] 31.5 pg 27.0-32.0 [facility] Nucleated RBC/100 WBC (Bld) [[facility]] 0 % 0[facility] [Mass/Vol]Or dered By: Dr. oBoth on 12-31-2022 MCHC (RBC) [Mass/Vol] 33.0 g/dL 32-36 [facility] No Panel InformationOrdered By: Dr. Booth on 12-31-2022 Estimated GFR (MDRD) Amer 81 mL/min >60 [facility] Comment on above: GFR Calc Estimated GFR (MDRD) Non-Af Amer 67 mL/min >60 [facility] Comment on above: Non- GFR Calc Prostate Specific Antigen Screen 3.44 ng/mL 0.00-4.00 [facility] Comment on above: This test was perfor med using the TPSA assay method for [employer] chemistry system. Values obtained with differentassay methods cannot be used interchangably.When changing PSA assays in the course of monitoring apatient, additional sequential testing should be carriedout to confirm baseline values. Platelets bldOrdered By: Dr. Booth on 12-31-2022 Platelets (Bld) [#/Vol] 201 10*3/uL 150-450 [facility] Serum or plasma albumin rodrigo urement (mass/volume)Ordered By: Dr. Booth on 12-31-2022 Albumin [Mass/Vol] 3.6 g/dL 3.2-5.0 [facility] Serum or plasma albumin/glob ulin mass ratioOrdered By: Dr. Booth on 12-31-2022 Albumin/Globulin [Mass ratio] 1.2 {ratio} 0.9-2.4 [facility] Serum or plasma calcium rodrigo urement (mass/volume)Ordered By: Dr. Booth on 12-31-2022 Calcium [Mass/Vol] 8.8 mg/dL 8.5-10.1 [facility] Serum or plasma cholesterol in HDL measurement (mass/volume)Ordered By: Dr. Booth on 12-31-2022 Cholesterol in HDL [Mass/Vol] 54 mg/dL >40 [facility] Comment on above: The drugs N-Acetylcy steine and Metamizole may falsely depress this assay. Reference Range HDL <40 mg/dL Low HDL Cholesterol HDL >or= 60 mg/dL High HDL Cholesterol Serum or plasma cholesterol in VLDL measurement (mass/volume)Ordered By: Dr. Booth on 12-31-2022 Cholesterol in VLDL [Mass/Vol] 22 mg/dL 5-40 [facility] Serum or plasma creatinine m easurement (mass/volume)Ordered By: Dr. Booth on 12-31-2022 Creatinine [Mass/Vol] 1.16 mg/dL 0.70-1.30 [facility] Comment on above: The validity of the calculated GFR & GFRAA in patients over 70 years has not been determined. Clinical correlation is essential. Serum or plasma ferritin bright surement (mass/volume)Ordered By: Dr. Booth on 12-31-2022 Ferritin [Mass/Vol] 15 ng/mL 26-388 [facility] Serum or plasma low density lipoprotein (LDL) cholesterol measurement (mass/volume)Ordered By: Dr. Booth on 12-31-2022 Cholesterol in LDL [Mass/Vol] 63 mg/dL 0-130 [facility] Serum or plasma urea nitroge n measurement (mass/volume)Ordered By: Dr. Booth on 12-31-2022 Urea nitrogen [Mass/Vol] 17 mg/dL 7-18 [facility] Thin prep Papanicolaou smear with manual screeningOrdered By: Dr. Booth on 12-31-2022 Thin prep Papanicolaou smear with manual screening 14 U/L 15-37 [facility] Thin prep Papanicolaou smear with manual screening 6 5-15 [facility] CNPNon 06-09-2021 CNPN Telephone ([employer]) -------- SARAI FERGUSON ([id number]) 1955 M Date Time Provider Department 06/09/21 GABRIELA SANCHEZ During your visit today, we recorded the following information about you: Gabriela Sanchez PA-C 06/09/2021 3:17 PM Signed Patient requested that records with recent scope findings and recommendations be sent to the [place]. Patient provided fax number [phone] Attn to RN Carmencita Jefferson. Please send his recent endoscopy and pathology reports and today's visit note as requested. Danay Araujo RN 06/09/2021 3:31 PM Signed Records faxed to number provided. Danay Araujo RN Allergies As of Date: 06/09/2021 Noted Allergy Reaction PENICILLINS 09/08/2011 4 - Hives Date Reviewed: 06/09/2021 Reviewed by: Gabriela Sanchez PA-C - Fully Assessed Reason for Visit: Release Of Medical Records [2017] Cmt: patient requesting records sent [place] Prescriptions as of 06/09/2021 - atorvastatin (LIPITOR) 10 mg ORAL tablet Take 10 mg by mouth once daily. - Aspirin 81 mg ORAL Tab Take 81 mg by mouth once daily. Problem List As Of Date 06/09/2021 Noted Resolved Rectal bleed [K62.5] 09/08/2011 Hemorrhoids [K64.9] 09/08/2011 FB anus/rectum [T18.5XXA] 10/13/2011 Unspecified aftercare [Z51.89] 11/05/2011 Iron deficiency anemia [D50.9] 06/02/2021 06/02/2021 Encounter Status:Closed by DANAY ARAUJO RN on 06/09/21 [facility] HISTORY PHYSICALon HISTORY PHYSICAL HNO ID: [id number] Author: Rafita Méndez MD Service: General Surgery Author Type: Physician Type: HANDP Filed: 06/02/2021 8:26 AM Note Text: UPDATED HISTORY AND PHYSICAL EXAMINATION SERVICE DATE: 06/02/2021 SERVICE TIME: 8:26 AM PHYSICAL EXAM MUST BE COMPLETED ON ADMISSION The History and Physical (completed in the past 30 days) has been reviewed and the patient has been examined. The contents accurately reflect the patient's condition with the following additions or revisions since the HANDP was completed. Examination indicates no changes. This HANDP can be found in the Electronic Medical Record dated 05/26/21. SIGNATURE: Rafita Méndez III, MD PATIENT NAME: Sarai Ferguson DATE: June 02, 2021 TIME: 8:25 AM [facility] NURSING PROGon 06-02-2021 NURSING PROG HNO ID: [id number] Author: Jeanine Weller RN Service: Nursing Author Type: Registered Nurse Type: Nursing Progress Note Filed: 06/02/2021 9:49 AM Note Text: Pt into Endo recovery room in satisfactory condition. Resting on left side. Pt. sleepy but arousable. Abdomen soft, no complaints. Will continue to monitor. [facility] NURSING PROG HNO ID: [id number] Author: Reyna Hinojosa RN Service: ? Author Type: Registered Nurse Type: Nursing Progress Note Filed: 06/02/2021 10:06 AM Note Text: [facility] PRE-OP NURSING HAND OFF NOTE SBAR Hand off given to Alba Sen RN. Hand off was communicated verbally and at the patient's bedside and all questions were answered. Reyna Hinojosa RN [facility] SURGICAL PATHOLOGYon 021 SURGICAL PATHOLOGY Specimen originated from [facility] Specimen #: [id number] Submitting Physician: RAFITA MÉNDEZ ([id number]) __ FINAL DIAGNOSIS Stomach, antrum, biopsy (A) - Gastric oxyntic-type mucosa with no significant pathologic change. - No intestinal metaplasia or morphologic evidence of Helicobacter pylori organisms. Daniela España M.D. (Electronic Signature) SPECIMEN SUBMITTED A: ANTRUM, BIOPSY CLINICAL DATA ANEMIA, SCREENING H/H GROSS DESCRIPTION A. Received in formalin is one piece of osborn, soft tissue measuring 0.7 x 0.3 x 0.2 cm. Totally submitted in one cassette. Gross examination performed at [facility], [address] [place] [id number] TTN 06/02/2021 8:58:45 PM Date of Report: 06/03/2021 Date of Procedure: 06/02/2021 Date of Receipt: 06/02/2021 Submitted by: RAFITA MÉNDEZ ([id number]) Location: [id number] Diagnostic interpretation performed at [facility], [address] [place] [address]. [place] Number: [id number] [facility] CNOVon 05-26-2021 CNOV Office Visit (GENSWS ) -------- SARAI FERGUSON ([id number]) 1955 M Date Time Provider Department 05/26/21 8:00 AM GABRIELA SANCHEZ During your visit today, we recorded the following information about you: Temperature Pulse Blood pressure Weight 97.7 degrees 61/minute 138/84 79.8 kg Height 1.778 m Bethanie Heart [facility] 05/26/2021 8:10 AM Signed REVIEW OF SYSTEMS: General: The patient denies fatigue, denies weight loss, denies weight gain, denies feeling hot, and denies feelings of cold. Eyes: The patient denies glaucoma, NOTES eye injury/surgery, does not wear glasses or contacts. Ear/Nose/Throat: The patient NOTES allergies, NOTES hayfever, denies ear infections, and denies bloody noses. Cardiovascular: The patient denies chest pain, denies heart disease, denies high blood pressure,denies cardiac stent, denies prior heart attack, denies irregular heart beat, denies high cholesterol, denies poor circulation, denies heart failure, other cardiac issues, denies claudication, denies cold feet, NOTES peripheral arterial stent. Respiratory: The patient denies tuberculosis, denies pneumonia, denies frequent cough, denies pulmonary embolism, denies shortness of breath, and denies coughing up blood. Gastrointestinal: The patient denies difficulty swallowing, NOTES acid reflux, denies ulcers, denies vomiting, denies jaundice/hepatitis, denies gallbladder problems, denies black or tarry stools, DENIES hemorrhoids,NOTES bleeding from rectum, denies diverticulitis, NOTES constipation, denies diarrhea, denies loss of stool control, and denies hernias. Kidney/Bladder: The patient denies kidney stones, denies urine infections, and denies bloody urine. Skin: The patient denies a history of skin cancer, denies bleeding/changing moles, and denies a history of skin rash. Neurologic: The patient denies a history of epilepsy/convulsions, denies headaches, denies head/spinal injuries, and denies stroke/TIA. Psychiatric: The patient denies psychiatric medications, denies depression, and denies voices, denies substance abuse. Endocrine: The patient denies thyroid disorders, denies diabetes, and denies hormonal problems. Hematologic: The patient denies a history of bruising, denies bleeding, and NOTES anemia, denies blood clots. Infections: The patient NOTES a history of measles and mumps, denies rheumatic fever, and denies sexually transmitted diseases. Musculoskeletal: The patient denies back pain/injury, denies back problems, denies sciatica, NOTES knee/foot trouble, denies arthritis, or denies gout. When was patient's last Mammogram screening? N/A Last Colonoscopy: 09/08/2011 Bethanie Sanchez PA-C 05/26/2021 8:45 AM Signed HISTORY AND PHYSICAL Sarai Ferguson 1955 REFERRING PHYSICIAN: Yifan Booth, * CHIEF COMPLAINT: Consult (Colonoscopy AND EGD) HPI: The patient is a 65 year old male referred for endoscopy. Sarai notes he was recently diagnosed with iron deficiency anemia and has been started on oral iron supplementation by his PCP. Patient denies any change in bowel habits, weight changes, visible blood in stools, black tarry stools or abdominal pain. Denies family history of colon issues. The patient notes no upper GI complaints. PCP was concerned about possible GI source of blood loss and patient is referred for upper and lower endoscopy. Sarai has undergone prior colon[place] [address] Méndez. Patient's past medical history is significant for hemorrhoids and hyperlipidemia. He recently underwent cardiac workup for shortness of breath and chest pressure, records from are reviewed. Patient had a cardiac cath which came back normal and reports feeling greatly improved just since starting on iron. Patient notes he eats a mostly plant-based diet. Denies problems with sedation in the past. PAST MEDICAL HISTORY Diagnosis Date - Hemorrhage of rectum and anus - Hyperlipidemia - Unspecified hemorrhoids without mention of complication PAST SURGICAL HISTORY Procedure Laterality Date - COLONOSCOP W/ OR W/O BRSH SPEC 09/28/11 - HEMORRHOID;BAND LIGAT, SNGL/MUL 2003 Hemorrhoidectomy - PAST SURGICAL HISTORY OF 2007 Lt hand surgery Current Outpatient Medications Medication Sig - atorvastatin (LIPITOR) 10 mg ORAL tablet Take 10 mg by mouth once daily. - Aspirin 81 mg ORAL Tab Take 81 mg by mouth once daily. No current facility-administered medications for this visit. ALLERGIES: Penicillins PERSONAL HISTORY: Social History Tobacco Use - Smoking status: Never Smoker - Smokeless tobacco: Never Used Substance Use Topics - Alcohol use: Not on file - Drug use: Not on file FAMILY HISTORY: FAMILY HISTORY Problem Relation Age of Onset - Alcohol/Drug Brother - Diabetes Father - Diabetes Maternal Grandmother - Diabetes Maternal Grandfather - Cancer Ma (more content not included)... [facility] -------- SARAI FERGUSON ([id number]) 1955 M Date Time Provider Department 05/26/21 RAFITA MÉNDEZ Nvigen During your visit today, we recorded the following information about you: Angel Scott 05/26/2021 12:25 PM Signed 06-02-2021 Colon EGD [facility] SURGICAL PHONE NOTE Date of Procedure/Surgery: 06-02-2021 Procedure/Surgery Type: EGD COLONOSCOPY ? SEDATION:Conscious Sedation Location of Planned Procedure/Surgery: ? [facility] Surgery/Procedure Ordered: Yes COVID Testing Required: (FOR MAC CASES AND ASC PROCEDURES OTHER THAN COLON AND EGD): No Pre-Op Clearance Needed: No Prep Ordered:YES GOLYTELY Prep Instructions given:Yes: Given in the office. Referral Completed:PAVE to complete. Patient Diabetic:No. Medication Considerations: Patient on blood Thinners: No Any other meds that need to be held: No Pacemaker or Defibrillator:No Patient/Family Informed of above information and given directions regarding location/arrival: Yes: Patient Transportation Considerations: No Other Important Information: No Any physical limitations: No Any cognitive limitations: No Segmental Paver Installer/Clothes Drier Assembler required: No Communication Limitations: No Allergies As of Date: 05/26/2021 Noted Allergy Reaction PENICILLINS 09/08/2011 4 - Hives Date Reviewed: 05/26/2021 Reviewed by: Rafita Méndez MD - Fully Assessed Reason for Visit: 06-02-2021 Colon EGD [facility] [Other] Prescriptions as of 06/11/2021 - atorvastatin (LIPITOR) 10 mg ORAL tablet Take 10 mg by mouth once daily. - Aspirin 81 mg ORAL Tab Take 81 mg by mouth once daily. Problem List As Of Date 05/26/2021 Noted Resolved Rectal bleed [K62.5] 09/08/2011 Hemorrhoids [K64.9] 09/08/2011 FB anus/rectum [T18.5XXA] 10/13/2011 Unspecified aftercare [Z51.89] 11/05/2011 Encounter Status:Closed by ANGEL SCOTT on 06/11/21 [facility] 05-26-2021 [facility] Patient:Booker Ferguson MRN: Height:5' 10(1.778 m) Weight:176 lb (79.833 kg) Outpatient Medications as of 06/02/21: atorvastatin (LIPITOR) 10 mg ORAL tablet Aspirin 81 mg ORAL Tab Admission/Clinic Administered Medications as of 06/02/21: lactated ringers iv infusion Problem List: Rectal bleed [K62.5] Hemorrhoids [K64.9] FB anus/rectum [T18.5XXA] Unspecified aftercare [Z51.89] Allergies: Penicillins Date Verified: 06/02/21 Lab Values No results within the last 30 days for the following basenames: K,HCT Progress Notes ([facility]): Angel Scott 05/26/2021 12:25 PM Signed 06-02-2021 Colon EGD [facility] SURGICAL PHONE NOTE Date of Procedure/Surgery: 06-02-2021 Procedure/Surgery Type: EGD COLONOSCOPY ? SEDATION:Conscious Sedation Location of Planned Procedure/Surgery: ? [facility] Surgery/Procedure Ordered: Yes COVID Testing Required: (FOR MAC CASES AND ASC PROCEDURES OTHER THAN COLON AND EGD): No Pre-Op Clearance Needed: No Prep Ordered:YES DAPHNIE Prep Instructions given:Yes: Given in the office. Referral Completed:PAVE to complete. Patient Diabetic:No. Medication Considerations: Patient on blood Thinners: No Any other meds that need to be held: No Pacemaker or Defibrillator:No Patient/Family Informed of above information and given directions regarding location/arrival: Yes: Patient Transportation Considerations: No Other Important Information: No Any physical limitations: No Any cognitive limitations: No Segmental Paver Installer/Clothes Drier Assembler required: No Communication Limitations: No Progress Notes ([facility]): Bethanie Heart LPN 05/26/2021 8:10 AM Signed REVIEW OF SYSTEMS: General: The patient denies fatigue, denies weight loss, denies weight gain, denies feeling hot, and denies feelings of cold. Eyes: The patient denies glaucoma, NOTES eye injury/surgery, does not wear glasses or contacts. Ear/Nose/Throat: The patient NOTES allergies, NOTES hayfever, denies ear infections, and denies bloody noses. Cardiovascular: The patient denies chest pain, denies heart disease, denies high blood pressure,denies cardiac stent, denies prior heart attack, denies irregular heart beat, denies high cholesterol, denies poor circulation, denies heart failure, other cardiac issues, denies claudication, denies cold feet, NOTES peripheral arterial stent. Respiratory: The patient denies tuberculosis, denies pneumonia, denies frequent cough, denies pulmonary embolism, denies shortness of breath, and denies coughing up blood. Gastrointestinal: The patient denies difficulty swallowing, NOTES acid reflux, denies ulcers, denies vomiting, denies jaundice/hepatitis, denies gallbladder problems, denies black or tarry stools, DENIES hemorrhoids,NOTES bleeding from rectum, denies diverticulitis, NOTES constipation, denies diarrhea, denies loss of stool control, and denies hernias. Kidney/Bladder: The patient denies kidney stones, denies urine infections, and denies bloody urine. Skin: The patient denies a history of skin cancer, denies bleeding/changing moles, and denies a history of skin rash. Neurologic: The patient denies a history of epilepsy/convulsions, denies headaches, denies head/spinal injuries, and denies stroke/TIA. Psychiatric: The patient denies psychiatric medications, denies depression, and denies voices, denies substance abuse. Endocrine: The patient denies thyroid disorders, denies diabetes, and denies hormonal problems. Hematologic: The patient denies a history of bruising, denies bleeding, and NOTES anemia, denies blood clots. Infections: The patient NOTES a history of measles and mumps, denies rheumatic fever, and denies sexually transmitted diseases. Musculoskeletal: The patient denies back pain/injury, denies back problems, denies sciatica, NOTES knee/foot trouble, denies arthritis, or denies gout. When was patient's last Mammogram screening? N/A Last Colonoscopy: 09/08/2011 Bethanie Sanchez PA-C 05/26/2021 8:45 AM Signed HISTORY AND PHYSICAL Sarai Ferguson 1955 REFERRING PHYSICIAN: Yifan Booth, * CHIEF COMPLAINT: Consult (Colonoscopy AND EGD) HPI: The patient is a 65 year old male referred for endoscopy. Sarai notes he was recently diagnosed with iron deficiency anemia and has been started on oral iron supplementation by his PCP. Patient denies any change in bowel habits, weight changes, visible blood in stools, black tarry stools or abdominal pain. Denies family history of colon issues. The patient notes no upper GI complaints. PCP was concerned about possible GI source of blood loss and patient is referred for upper and lower endoscopy. Sarai has undergone prior [place] [address] Méndez. Patient's past medical history is significant for hemorrhoids and hyperlipidemia. He recently underwent cardiac workup for shortness of breath and chest pressure, records from are reviewed. Patient (more content not included)... [facility] Vital Signs Date Time Vital Sign Value Performing Clinician Faci lity 02-22-2025 13:03-0400 Body temperature 97 [degF] Aaron Sierra MD Work Phone: [facility] [employer] 02-22-2025 12:11-0400 Diastolic blood pressure 86 mm[Hg] Aaron Sierra MD Work Phone: [employer] 02-22-2025 12:11-0400 Heart rate 43 /min Aaron Sierra MD Work Phone: [facility] [employer] Comment on above: ZOHRA JT is aware 02-22-2025 12:11-0400 Respiratory rate 16 /min Aaron Sierra MD Work Phone: [facility] [employer] 02-22-2025 12:11-0400 SaO2% (BldA) [Mass fraction] 99 % Aaron Sierra MD Work Phone: [facility] [employer] 02-22-2025 12:11-0400 Systolic blood pressure 143 mm[Hg] Aaron Sierra MD Work Phone: [facility] [employer] 01-30-2025 13:19-0400 Body height 177.8 cm Nir Funes FLOOD CONTROL ENGINEER - SENIOR WEB ENGINEER Work Phone: [facility] [employer] 01-30-2025 13:19-0400 Body mass index (BMI) [Ratio] 24.11 kg/m2 Nir Funes FLOOD CONTROL ENGINEER - SENIOR WEB ENGINEER Work Phone: [employer] 01-30-2025 13:19-0400 Body weight 76.2 kg Nir Funes FLOOD CONTROL ENGINEER - SENIOR WEB ENGINEER Work Phone: [employer] 01-30-2025 13:19-0400 Diastolic blood pressure 74 mm[Hg] Nir Funes FLOOD CONTROL ENGINEER - SENIOR WEB ENGINEER Work Phone: [employer] 01-30-2025 13:19-0400 Heart rate 56 /min Nir Funes FLOOD CONTROL ENGINEER - SENIOR WEB ENGINEER Work Phone: [employer] 01-30-2025 13:19-0400 Systolic blood pressure 122 mm[Hg] Nir Funes FLOOD CONTROL ENGINEER - SENIOR WEB ENGINEER Work Phone: [facility] [employer] 11-02-2024 09:06-0500 Body height 177.[address] Yifan Booth MD Work Phone: [facility] 11-02-2024 09:06-0500 Body mass index (BMI) [Ratio] 25 kg/m2 Dr. Yifan Booth MD Work Phone: [facility] 11-02-2024 09:06-0500 Body weight 78.[address] Yifan Booth MD Work Phone: [phone])[phone] [place] [address] 11-02-2024 09:06-0500 Diastolic blood pressure 91 mm[Hg] Dr. Yifan Booth MD Work Phone: 3(870)095-829000 [place] [address] 11-02-2024 09:06-0500 Heart rate 52 /min Dr. Yifan Booth MD Work Phone: [phone])646-272397 [place] [address] 11-02-2024 09:06-0500 Respiratory rate 16 /min Dr. Yifan Booth MD Work Phone: [phone])[phone] [place] [address] 11-02-2024 09:06-0500 Systolic blood pressure 140 mm[Hg] Dr. Yifan Booth MD Work Phone: [phone])103-255600 [place] [address] 08-27-2023 11:00-0500 Body height 177.[address] Dallas Booth Work Phone: [phone] [place] [address] 08-27-2023 11:00-0500 Body mass index (BMI) [Ratio] 24 kg/m2 Dr. Dallas Booth Work Phone: [facility] 08-27-2023 11:00-0500 Body weight 76.[address] Dallas Booth Work Phone: [facility] 08-27-2023 11:00-0500 Diastolic blood pressure 84 mm[Hg] Dr. Dallas Booth Work Phone: [facility] 08-27-2023 11:00-0500 Heart rate 50 /min Dr. Dallas Booth Work Phone: [facility] 08-27-2023 11:00-0500 Respiratory rate 16 /min Dr. Dallas Booth Work Phone: [facility] 08-27-2023 11:00-0500 Systolic blood pressure 139 mm[Hg] Dr. Dallas Booth Work Phone: [facility] Encounters Encounter Date Encounter Type Care Provider Facility Start: 02-27-2025 End: 02-27-2025 Telephone encounter Aaron Sierra MD Work Phone: [facility] Comment on above: Results (Prostate bi opsy) Start: 02-26-2025 End: 02-26-2025 ambulatory YIFAN BOOTH [facility] Start: 02-22-2025 End: 02-22-2025 ambulatory AARON SIERRA [facility] Start: 02-22-2025 End: 02-22-2025 Subsequent hospital visit by physician Aaron Sierra MD Work Phone: [facility] Comment on above: Elevated PSA Start: 02-03-2025 End: 02-03-2025 ambulatory OOTDR SMAL Facility:[facility] Start: 01-30-2025 End: 01-30-2025 Office outpatient new 45 minutes Nir Redmond CNP Work Phone: [facility] Comment on above: Elevated PSA (Primar y Dx) Start: 01-30-2025 End: 02-07-2025 Telephone encounter Nir Redmond SENIOR WEB ENGINEER [facility] Comment on above: Surgery Scheduling ( MRI fusion biopsy) Start: 01-30-2025 End: 01-30-2025 ambulatory NIR MARIN [facility] Start: 12-26-2024 End: 12-26-2024 Telephone encounter Nir Gillette MD [facility] Start: 12-18-2024 End: 12-18-[address] Yifan Booth MD Work Phone: [facility] Work Phone: Start: 12-18-2024 End: 12-18-[address] Liu Cuevas MD -[facility] Work Phone: Start: 12-18-2024 End: 12-18-2024 ambulatory Liu Cuevas Facility:[facility] Start: 11-13-2024 End: 11-13-[address] Liu Cuevas MD -Laboratory Work Phone: Start: 11-13-2024 End: 11-13-2024 ambulatory [facility] Facility:[facility] Start: 11-02-2024 End: 11-02-[address] Chester Chun MD -[facility] Work Phone: Start: 11-02-2024 End: 11-02-2024 ambulatory [facility] Facility:[facility] Start: 10-12-2024 End: 10-12-[address] Yifan Booth MD -Laboratory, [facility] Start: 10-12-2024 End: 10-12-2024 [facility] Start: 07-05-2024 End: 07-05-20[facility] Start: 02-28-2024 End: 02-28-2024 ambulatory [facility] Facility:[facility] Start: 09-17-2023 Non-patient / Non-visit Dr. Dallas Booth Work Phone: [facility] Work Phone: Start: 09-16-2023 Non-patient / Non-visit Dr. Dallas Booth Work Phone: [facility] Start: 09-16-2023 End: 09-16-[address] Dallas Booth Work Phone: [facility] Work Phone: Start: 09-16-2023 End: 09-16-[address] Dallas Booth Work Phone: [facility] Work Phone: Start: 08-27-2023 End: 08-27-[address] Dallas Booth Work Phone: [facility] Work Phone: Start: 12-31-2022 End: 12-31-2022 ambulatory [facility] Work Phone: Start: 12-31-2022 End: 12-31-2022 Patient encounter procedure [facility]-Laboratory, [facility] Procedures Date Procedure Procedure Detail Performing Clinician Start: 02-22-2025 End: 02-22-2025 Prostate needle biopsy any approach Aaron Sierra MD Work Phone: Start: 02-22-2025 End: 02-22-2025 Us guidance needle placement img s&i Aaron Sierra MD Work Phone: Start: 12-18-2024 MRI of pelvis with contrast Dr. Yifan Booth MD Work Phone: Plan of Treatment Date Care Activity Detail Author Start: 05-01-2032 DTaP/Tdap/Td Vaccine s (4 - Td or Tdap) DTaP/Tdap/Td Vaccines (4 - Td or Tdap) [facility] Start: 2030 RSV Immunization for Adults (1 - 1-dose 75+ series) RSV Immunization for Adults (1 - 1-dose 75+ series) [facility] Start: 11-01-2026 DTaP/Tdap/Td Vaccine s (2 - Td or Tdap) DTaP/Tdap/Td Vaccines (2 - Td or Tdap) [facility] Start: 02-22-2025 End: 02-22-2025 Admission to same day surgery center 02/22/2025 2:30 PM EDT - 02/22/2025 3:30 PM EDT Surgery [facility]ly [facility] [place] [address] [place] [address] Aaron Sierra MD [address] [place] [address] MICRO-ULTRASOUND AND TRANSPERINEAL MRI GUIDED [88036 (CPT )] [facility] Comment on above: MICRO-ULTRASOUND AND TRANSPERINEAL MRI GUIDED [48721 (CPT )] Start: 02-22-2025 End: 02-22-2025 Prostate needle biopsy any approach BIOPSY, PROSTATE Elevated PSA 02/22/2025 2:30 PM EDT [facility] Start: 02-22-2025 Subsequent hospital visit by physician 02/22/2025 2:30 PM EDT Hospital Encounter [facility] [address] [place] [phone] Aaron Sierra MD [address] [place] [phone] [facility] Start: 02-22-2025 End: 02-22-2025 Us guidance needle placement img s&i ECHO GUIDE FOR BIOPSY Elevated PSA 02/22/2025 2:30 PM EDT [facility] Start: 01-30-2025 End: 01-30-2025 Patient encounter procedure 01/30/2025 2:00 PM EDT Office Visit [facility] [place] [address] [place] [phone] Nir Gillette MD [address] [place], [place] [id number] [facility] [place] Start: 10-18-2024 Medicare Advantage Annual Wellness Visit Medicare Advantage Annual Wellness Visit [facility] Start: 06-18-2024 COVID-19 Vaccine ( season) COVID-19 Vaccine ( season) [facility] Start: 06-18-2024 COVID-19 Vaccine ( season) COVID-19 Vaccine ( season) [facility] Start: 06-18-2024 Influenza vaccination Influenza Vacc ine (#1) [facility] Start: 11-12-2019 Zoster Vaccines (2 of 2) Zoste r Vaccines (2 of 2) [facility] Start: 2005 Pneumococcal Vaccine : 50+ Years (1 of 1 - PCV) Pneumococcal Vaccine: 50+ Years (1 of 1 - PCV) [facility] Start: 2005 Zoster Vaccines (1 of 2) Zoste r Vaccines (1 of 2) [facility] Start: 1973 Hepatitis C screening Hepatitis C Sc reening [facility] Start: 1967 Depression Screening Depression Scre ening [facility] Start: 1955 Lipid panel Lipid Panel [facility] Start: 1955 Screening for malign ant neoplasm of colon [facility] Tissue exam Tissue exam Path ology and Cytology Timed Elevated PSA Release Upon Ordering for 1 Occurrences starting 02/22/2025 [facility] Work Phone: Comment on above: Release Upon Orderin g for 1 Occurrences starting 02/22/2025 Immunizations Immunization Date Immunization Notes Care Provider Olive casper 05-01-2022 tetanus toxoid, redu hipolito diphtheria toxoid, and acellular pertussis vaccine, [facility] Payers Date Payer Category Payer Medicare HMO [employer] [id number] 2024 Private Health Insurance [id number] 2024 Self-pay [id number] 2023 Private Health Insurance [id number] Private Health Insurance [employer] [id number] Unknown [id number] Unknown [id number] Unknown [id number] Unknown [id number] Unknown [id number] Unknown [id number] Unknown [id number] Social History Date Type Detail Facility Start: 05-11-2022 End: 08-27-2023 Tobacco smoking status NHIS Unknown if ever smoked [facility] Start: 1955 Sex Assigned At Male [facility] Start: 1955 Sex assigned at Not on file [facility] Start: 05-18-2022 End: 12-29-2024 Sex Male (finding) [facility] Start: 01-30-2025 Gender identity Not on file [facility] Start: 08-27-2023 End: 01-30-2025 Tobacco smoking status NHIS Never smoked tobacco (finding) [facility] Start: 01-30-2025 Tobacco use and exposure Smokeless tobacco non-user [facility] Start: 01-30-2025 End: 02-22-2025 Alcoholic beverage intake Current drinker of alcohol (finding) [facility] Start: 01-30-2025 History of Social function [facility] Start: 01-30-2025 Alcohol Comment moderate [facility] Clinical Notes 05-26-2021 to 02-27-2025 Telephone Encounter - Gildardo Hoffman RN - 02/27/2025 10:10 AM EDTTelephone Encounter - Gildardo Hoffman RN - 02/27/2025 10:10 AM EDTTelephone Encounter - Aaron Sierra MD - 02/27/2025 7:08 AM EDT Note Date & Type Note Facility 02-27-2025 Telephone encounter Note Rn spoke to pt and relayed information verbatim in last message. Pt very happy with news and states he had no complications s/p procedure. Pt did not want to make 1 year appt over the phone at this moment, but states he will make it through [facility] later. Routing to Dr Sierra for update. Thank you. [facility] 02-27-2025 Miscellaneous Notes Rn spoke to pt and relayed information verbatim in last message. Pt very happy with news and states he had no complications s/p procedure. Pt did not want to make 1 year appt over the phone at this moment, but states he will make it through [facility] later. Routing to Dr Sierra for update. Thank you. Prostate biopsy showed NO prostate cancer. Please call and let him know the good news. Make sure that he didn't have any problems after the procedure. We will be sure to let PCP know. I should see the patient in 1 year documented in this encounter [facility] 02-27-2025 Note Prostate biopsy show ed NO prostate cancer. Please call and let him know the good news. Make sure that he didn't have any problems after the procedure. We will be sure to let PCP know. I should see the patient in 1 year [facility] 02-27-2025 Telephone encounter Note Prostate biopsy showed NO prostate cancer. Please call and let him know the good news. Make sure that he didn't have any problems after the procedure. We will be sure to let PCP know. I should see the patient in 1 year [facility] 02-22-2025 Note Patient: Sarai hutchins Procedure Summary Date: 02/22/25 Room / Location: [facility] 2 / [facility] OR Anesthesia Start: 1231 Anesthesia Stop: 1303 Procedures: MICRO-ULTRASOUND AND TRANSPERINEAL MRI GUIDED FUSION BIOPSY Diagnosis: Elevated PSA (Elevated PSA) Surgeons: Aaron Sierra MD Responsible Provider: No Anesthesiologist - Mick/MD Giovanny Anesthesia Type: general ASA Status: 3 Anesthesia Type: general Vitals Value Taken Time BP 104/60 02/22/25 1308 Temp 36.1 ?C (97 ?F) 02/22/25 1303 Pulse 61 02/22/25 1310 Resp 14 02/22/25 1329 SpO2 95 % 02/22/25 1308 Vitals shown include unfiled device data. Anesthesia Post Evaluation Patient location during evaluation: PACU Patient participation: complete - patient participated Level of consciousness: awake Pain management: adequate Airway patency: patent Dental Injury: no Cardiovascular status: acceptable and hemodynamically stable Respiratory status: acceptable, room air and spontaneous ventilation Hydration status: acceptable Nausea/Vomiting: controlled No notable events documented. Patient can be discharged once all PACU criteria has been met. [facility] 02-22-2025 Hospital Discharg e instructions Monico Antoine RN - 02/22/2025 1:13 PM EDT Home Going Instructions for Trans-perineal MRI Biopsy What can I expect after the biopsy? After the biopsy it is normal to experience the following sensations or symptoms: Burning with urination - It is normal to feel burning for the first 24 hours after. It may continue for up to 3 days Frequent urination - This should gradually improve over the first 24-36 hours. Blood in the urine - It is normal to have slight red tinged urine. Blood in semen - This may persist for up to 6 weeks after the procedure. How should I care for myself after the biopsy? Drink plenty of fluids Resume your normal diet Avoid strenuous and jarring exercise such as jogging, heavy lifting, golfing, and bike riding for 7 days. Avoid sexual activity for 7 days Apply ice to the perineal area for discomfort Take extra strength Tylenol for discomfort Do not drive a vehicle or operate machinery for 24 hours following general anesthesia. Do not drink alcohol or take sleeping medications. When would I need to call my doctor? Call Dr. Sierra's office at [phone] if you have any of the following signs and symptoms that could indicate infection: Persistent urinary frequency or burning that does not resolve after a few days Fever of 101 or greater Chills Urine that is sorensen-red or has clots in it Rectal bleeding with clots or pure bloody stool Inability to urinate following the biopsy Severe pain that is not relieved by medication Persistent nausea or vomiting If any of these signs/symptoms occur and you are unable to reach Dr. Sierra or if it is after normal office hours, or if there is any medical emergency please call 911 or proceed to your nearest emergency room. I understand the home-going instructions which have been fully explained to me. Responsible Person or Patient: Nurse: Date: documented in this encounter [facility] 02-22-2025 Note Patient: Sarai hutchins Procedure Summary Date: 02/22/25 Room / Location: [facility] / [facility] OR Anesthesia Start: 1231 Anesthesia Stop: 1303 Procedures: MICRO-ULTRASOUND AND TRANSPERINEAL MRI GUIDED FUSION BIOPSY Diagnosis: Elevated PSA (Elevated PSA) Surgeons: Aaron Sierra MD Responsible Provider: No Anesthesiologist - Mick/MD Giovanny Anesthesia Type: general ASA Status: 3 Anesthesia Type: general Vitals Value Taken Time BP 104/60 02/22/25 1308 Temp 36.1 ?C (97 ?F) 02/22/25 1303 Pulse 61 02/22/25 1310 Resp 14 02/22/25 1310 SpO2 93 % 02/22/25 1308 Vitals shown include unfiled device data. Anesthesia Post Evaluation Patient location during evaluation: PACU Patient participation: complete - patient cannot participate Level of consciousness: lethargic Pain score: 0 Pain management: adequate Multimodal analgesia pain management approach Airway patency: patent Two or more strategies used to mitigate risk of obstructive sleep apnea Cardiovascular status: acceptable and hemodynamically stable Respiratory status: acceptable, room air and spontaneous ventilation Hydration status: acceptable No notable events documented. MIPS #430 PONV Patient received an inhalational anesthetic (4554F) Patient does not exhibit three or more risk factors for PONV (X0430)) MIPS # 424 Perioperative Temperature Management Anesthesia time was less than 60 minutes (4256F) MIPS #477 Multimodal Pain Management Not emergent case Patient was administered multimodal pain management (two or more drugs and/or interventions excluding systemic opioids) in the periopeartive period occurring at some time between 6 hours prior to anesthesia start time until discharged from PACU (G2148) MIPS #404 Anesthesiology Smoking Abstinence The patient is not a current smoker (e.g. cigarette, cigar, pipe, e-cigarette/vaping/marijuana) If no stop here (XX404) I completed my handoff to the receiving clinician during which we: 1. Identified the patient 2. Identified the responsible provider 3. Reviewed the pertinent medical history 4. Discussed the surgical course 5. Reviewed intra-op anesthesia management and issues during anesthesia 6. Set expectations for post-procedure period 7. Allowed opportunity for questions and acknowledgement of understanding. [facility] 02-22-2025 Note Airway Date/Time: 02/22/2025 12:36 PM Urgency: scheduled Airway not difficult General Information and Staff Patient location during procedure: Procedural Anesthesiologist: No Anesthesiologist - Mick/Giovanny, Resident/LOCOMOTIVE SUPERVISOR: Antwan Reddy APRN - LOCOMOTIVE SUPERVISOR Performed: LOCOMOTIVE SUPERVISOR Indications and Patient Condition Indications for airway management: anesthesia Sedation level: Asleep Preoxygenated: yes Patient position: C spine neutral Mask difficulty assessment: 0 - not attempted Final Airway Details Final airway type: supraglottic airway Successful airway: Igel Size 5 Number of attempts at approach: 1 Number of other approaches attempted: 0 Additional Comments atraumatic [facility] 02-22-2025 Note Transrectal microult rasound and trans-perineal MRI-fusion prostate biopsy Procedure Note Pre-operative Diagnosis: Elevated PSA Post-operative Diagnosis: Elevated PSA Surgeon: Aaron Sierra M.D. Sheep Farm Manager: none Anesthesia: General Specimens: Prostate biopsies (as detailed below) Estimated blood loss: Minimal Special Medications: Ancef Procedure Details: The risks, benefits, complications, treatment options, and expected outcomes were discussed with the patient. The patient concurred with the proposed plan, giving informed consent. A proper time out was performed before the procedure started. Preoperative intravenous antibiotics were administered without incident Under general anesthesia, in the dorsal lithotomy position, the patient was prepped for the procedure. Digital rectal exam reveals no obvious rectal masses. Bowel preparation was felt to be adequate. The scrotum was secured up away from the perineum. If necessary, excess hair was trimmed away from the perineum. The perineum was prepped with Betadine. The ExactVu transrectal microultrasound ultrasound probe was inserted, and complete imaging of the prostate was performed in transverse and sagittal scanning. The seminal vesicles had normal architecture. The lateral prostatic margins were intact. PRIMUS (prostate risk identification using micro-ultrasound) characterization of all regions of the prostate was performed. The prostate had the following dimensions: WIDTH (cm.): 3.56 HEIGHT (cm.): 2.76 LENGTH (cm.): 4.04 VOLUME (ml): 20.76 PSA density: 0.38 The MRI study was reviewed. The regions of interest had been previously identified. The MRI images were uploaded into the ExactVu machine Utilizing the microultrasound and MRI as a guidance, multiple biopsies were taken from the prostate regions with the spring-loaded biopsy needle. The MRI [id number] were included in the corresponding regions as described. RIGHT ANTERIOR LATERAL : 2 cores , PRIMUS score 2 RIGHT ANTERIOR MEDIAL : 2 cores , PRIMUS score 2 LEFT ANTERIOR MEDIAL : 2 cores , PRIMUS score 3 LEFT ANTERIOR LATERAL : 3 cores , PRIMUS score 3 -- MRI [id number] #1 RIGHT POSTERIOR LATERAL : PRIMUS score 5 -- MRI [id number] #2 (3 CORES TAKEN) [ ExactVu 29' ] RIGHT POSTERIOR MEDIAL : PRIMUS score 5 (3 CORES TAKEN) [ ExactVu 20' ] LEFT POSTERIOR MEDIAL : 2 cores , PRIMUS score 3 LEFT POSTERIOR LATERAL : 2 cores , PRIMUS score 3 At the end of the procedure, the transrectal probe was withdrawn. Direct compression was held over the perineum for several minutes, and excellent hemostasis was in place. The patient tolerated the procedure, and was awakened from general anesthesia without incident. He was transported to the recovery area in stable condition I will contact the patient when the final histology report is completed Aaron Sierra M.D. 02/22/2025 PAST UROLOGIC HISTORY : 01/30/2025: Was to have been seen by My[facility], but referred here instead 12/18/2024: MRI ([facility]): 3.0 x 4.8 x 3.5 = 26 ml. P4 & P3. 11/13/2024: PSA: 7.800 w/ 19% free 10/12/2024: PSA: 12.900 07/05/2024: PSA: 7.400 [facility] 02-22-2025 Procedure note Transrectal microultrasound and trans-perineal MRI-fusion prostate biopsy Procedure Note Pre-operative Diagnosis: Elevated PSA Post-operative Diagnosis: Elevated PSA Surgeon: Aaron Sierra M.D. Sheep Farm Manager: none Anesthesia: General Specimens: Prostate biopsies (as detailed below) Estimated blood loss: Minimal Special Medications: Ancef Procedure Details: The risks, benefits, complications, treatment options, and expected outcomes were discussed with the patient. The patient concurred with the proposed plan, giving informed consent. A proper time out was performed before the procedure started. Preoperative intravenous antibiotics were administered without incident Under general anesthesia, in the dorsal lithotomy position, the patient was prepped for the procedure. Digital rectal exam reveals no obvious rectal masses. Bowel preparation was felt to be adequate. The scrotum was secured up away from the perineum. If necessary, excess hair was trimmed away from the perineum. The perineum was prepped with Betadine. The Exact transrectal microultrasound ultrasound probe was inserted, and complete imaging of the prostate was performed in transverse and sagittal scanning. The seminal vesicles had normal architecture. The lateral prostatic margins were intact. PRIMUS (prostate risk identification using micro-ultrasound) characterization of all regions of the prostate was performed. The prostate had the following dimensions: WIDTH (cm.): 3.56 HEIGHT (cm.): 2.76 LENGTH (cm.): 4.04 VOLUME (ml): 20.76 PSA density: 0.38 The MRI study was reviewed. The regions of interest had been previously identified. The MRI images were uploaded into the ExactVu machine Utilizing the microultrasound and MRI as a guidance, multiple biopsies were taken from the prostate regions with the spring-loaded biopsy needle. The MRI [id number] were included in the corresponding regions as described. RIGHT ANTERIOR LATERAL : 2 cores , PRIMUS score 2 RIGHT ANTERIOR MEDIAL : 2 cores , PRIMUS score 2 LEFT ANTERIOR MEDIAL : 2 cores , PRIMUS score 3 LEFT ANTERIOR LATERAL : 3 cores , PRIMUS score 3 -- MRI [id number] #1 RIGHT POSTERIOR LATERAL : PRIMUS score 5 -- MRI [id number] #2 (3 CORES TAKEN) [ ExactVu 29' ] RIGHT POSTERIOR MEDIAL : PRIMUS score 5 (3 CORES TAKEN) [ ExactVu 20' ] LEFT POSTERIOR MEDIAL : 2 cores , PRIMUS score 3 LEFT POSTERIOR LATERAL : 2 cores , PRIMUS score 3 At the end of the procedure, the transrectal probe was withdrawn. Direct compression was held over the perineum for several minutes, and excellent hemostasis was in place. The patient tolerated the procedure, and was awakened from general anesthesia without incident. He was transported to the recovery area in stable condition I will contact the patient when the final histology report is completed Aaron Sierra M.D. 02/22/2025 PAST UROLOGIC HISTORY : 01/30/2025: Was to have been seen by My[facility], but referred here instead 12/18/2024: MRI ([facility]): 3.0 x 4.8 x 3.5 = 26 ml. P4 & P3. 11/13/2024: PSA: 7.800 w/ 19% free 10/12/2024: PSA: 12.900 07/05/2024: PSA: 7.400 [facility] 02-22-2025 Miscellaneous Notes Transrectal microultrasound and trans-perineal MRI-fusion prostate biopsy Procedure Note Pre-operative Diagnosis: Elevated PSA Post-operative Diagnosis: Elevated PSA Surgeon: Aaron Sierra M.D. Sheep Farm Manager: none Anesthesia: General Specimens: Prostate biopsies (as detailed below) Estimated blood loss: Minimal Special Medications: Ancef Procedure Details: The risks, benefits, complications, treatment options, and expected outcomes were discussed with the patient. The patient concurred with the proposed plan, giving informed consent. A proper time out was performed before the procedure started. Preoperative intravenous antibiotics were administered without incident Under general anesthesia, in the dorsal lithotomy position, the patient was prepped for the procedure. Digital rectal exam reveals no obvious rectal masses. Bowel preparation was felt to be adequate. The scrotum was secured up away from the perineum. If necessary, excess hair was trimmed away from the perineum. The perineum was prepped with Betadine. The ExactVu transrectal microultrasound ultrasound probe was inserted, and complete imaging of the prostate was performed in transverse and sagittal scanning. The seminal vesicles had normal architecture. The lateral prostatic margins were intact. PRIMUS (prostate risk identification using micro-ultrasound) characterization of all regions of the prostate was performed. The prostate had the following dimensions: WIDTH (cm.): 3.56 HEIGHT (cm.): 2.76 LENGTH (cm.): 4.04 VOLUME (ml): 20.76 PSA density: 0.38 The MRI study was reviewed. The regions of interest had been previously identified. The MRI images were uploaded into the ExactVu machine Utilizing the microultrasound and MRI as a guidance, multiple biopsies were taken from the prostate regions with the spring-loaded biopsy needle. The MRI [id number] were included in the corresponding regions as described. RIGHT ANTERIOR LATERAL : 2 cores , PRIMUS score 2 RIGHT ANTERIOR MEDIAL : 2 cores , PRIMUS score 2 LEFT ANTERIOR MEDIAL : 2 cores , PRIMUS score 3 LEFT ANTERIOR LATERAL : 3 cores , PRIMUS score 3 -- MRI [id number] #1 RIGHT POSTERIOR LATERAL : PRIMUS score 5 -- MRI [id number] #2 (3 CORES TAKEN) [ ExactVu 29' ] RIGHT POSTERIOR MEDIAL : PRIMUS score 5 (3 CORES TAKEN) [ ExactVu 20' ] LEFT POSTERIOR MEDIAL : 2 cores , PRIMUS score 3 LEFT POSTERIOR LATERAL : 2 cores , PRIMUS score 3 At the end of the procedure, the transrectal probe was withdrawn. Direct compression was held over the perineum for several minutes, and excellent hemostasis was in place. The patient tolerated the procedure, and was awakened from general anesthesia without incident. He was transported to the recovery area in stable condition I will contact the patient when the final histology report is completed Aaron Sierra M.D. 02/22/2025 PAST UROLOGIC HISTORY : 01/30/2025: Was to have been seen by My[facility], but referred here instead 12/18/2024: MRI ([facility]): 3.0 x 4.8 x 3.5 = 26 ml. P4 & P3. 11/13/2024: PSA: 7.800 w/ 19% free 10/12/2024: PSA: 12.900 07/05/2024: PSA: 7.400 [facility] - Patient Pre-procedure Instructions [address] [place] [address] [address] May shower/brush teeth. Leave valuables/jewelry at home. No makeup, lotion, powder, deodorant or body sprays. No contact lenses No piercings or dark nail macedonian Sleep Apnea: If yes, please bring CPAP machine No solid food after midnight before procedure. Clear liquids only - up to 2 hours prior to your ARRIVAL time (water, clear juice, Gatorade, coffee/tea with no milk/sugar, no mints gum or candy. Medications to take the morning of surgery Take the following medications: daily prescription Do not take the following medications: hold vitamins, see below If you are taking Ozempic or Trulicity, or similar, please stop this medication 7 days before your scheduled procedure. If you are a diabetic and on additional diabetic medication please contact your doctor for instructions on how to take your other diabetic medications No Motrin, ibuprofen or Advil in 24 hours prior to surgery, longer if directed by your surgeon No Aleve or Naprosyn for 3 days prior to surgery or longer if instructed by your surgeon. If you take blood thinners or aspirin, follow instructions given to you by your surgeon You may take your prescription pain medication, you may take Tylenol for pain. Do not use/smoke THC or drink alcohol in the 24 hours prior to your arrival time. Please Bring your Financial Rep's license/photo ID, insurance card, eye drops/sunglasses, inhalers if applicable If you have a Medical Power of Medical Staff Services Manager, living will, or an advanced directive, please bring a copy with you. We are required to resuscitate and transfer you to the hospital along with your directive. If you need a work excuse, please reach out to your surgeon's office. You must have a transportation driver arranged. Uber, Lyft, taxi, public transit is not sufficient unless you have someone accompanying you. documented in this encounter [facility] 02-22-2025 History and physical note [facility] Comprehensive History and Physical Name: Sarai Ferguson : 1955 (Age-69 y.o.) Date of evaluation: 02/22/2025 Admitting Diagnosis: Elevated PSA [R97.20] Physician: Rigo Allergies Allergen Reactions Etodolac Penicillins Hives HPI: 69 year old man with elevated PSA Severity: Moderate Duration: >one month Review of systems negative except for items below: Past Medical History: Diagnosis Date Anemia Bradycardia Dyspnea Elevated PSA Hematoma of leg Hemorrhoids Hypercholesteremia Seborrhea Tinnitus There are no active problems to display for this patient. Past Surgical History: Procedure Laterality Date BASAL CELL CARCINOMA EXCISION N/A EYE SURGERY Bilateral 2007 laser lasic HAND SURGERY Left 2006 HEMORRHOIDECTOMY (HISTORICAL) N/A 2003 No family history on file. Medications: Prior to Admission medications Medication Sig Start Date End Date Taking? Authorizing Provider ascorbic acid (Vitamin C) 500 MG ER capsule Take 500 mg by mouth daily. Yes Historical Provider, atorvastatin (Lipitor) 10 MG tablet Take 10 mg by mouth daily. Yes Historical Provider, ferrous sulfate 325 (65 Fe) MG tablet Take 325 mg by mouth daily. Yes Historical Provider, BP (!) 143/86 Pulse (!) 43 Comment: ZOHRA VILLAGRAN is aware Temp 37.1 C (98.7 F) (Tympanic) Resp 16 SpO2 99% Physical Examination: Constitutional: No apparent distress, well nourished and in stable condition. Cardiac: Regular rate and rhythm Abdomen: Soft and nonacute Pulmonary: Clear bilaterally and no wheezing Neuro: Moves extremities X4 with no tremors HEENT: No gross cranial nerve defects and anicteric sclera Skin: Skin warm and dry with no visible rashes Vascular: Adequate perfusion of extremities with no cyanosis Psych: Alert and oriented x3 with appropriate affect Lymphatics: No swelling of arms/hands with no pedal edema Neck: FROM with no JVD Additional Notes:None DATA: Pertinent laboratory data personally reviewed by me. Radiology Review: Pertinent images personally reviewed by me. After review of the medical history and physical assessment, medications, allergies, patient's current medical condition, and labs, this patient is at acceptable risk for the planned surgical procedure and anesthestic at this surgical facility.} Impression Elevated PSA Plan Transrectal microultrasound and trans-perineal MRI-fusion prostate biopsy All aspects of the procedure, along with the pros & cons of intervention and the potential associated risks & complications have been discussed with the patient. Questions have been answered, and informed consent has been obtained. Electronically signed by: Aaron Sierra MD, 02/22/2025 at 12:[address] [facility] 02-22-2025 History and physical note [facility] Comprehensive History and Physical Name: Sarai Ferguson : 1955 (Age-69 y.o.) Date of evaluation: 02/22/2025 Admitting Diagnosis: Elevated PSA [R97.20] Physician: Rigo Allergies Allergen Reactions Etodolac Penicillins Hives HPI: 69 year old man with elevated PSA Severity: Moderate Duration: >one month Review of systems negative except for items below: Past Medical History: Diagnosis Date Anemia Bradycardia Dyspnea Elevated PSA Hematoma of leg Hemorrhoids Hypercholesteremia Seborrhea Tinnitus There are no active problems to display for this patient. Past Surgical History: Procedure Laterality Date BASAL CELL CARCINOMA EXCISION N/A EYE SURGERY Bilateral 2008 laser lasic HAND SURGERY Left 2006 HEMORRHOIDECTOMY (HISTORICAL) N/A 2003 No family history on file. Medications: Prior to Admission medications Medication Sig Start Date End Date Taking? Authorizing Provider ascorbic acid (Vitamin C) 500 MG ER capsule Take 500 mg by mouth daily. Yes Historical Provider, atorvastatin (Lipitor) 10 MG tablet Take 10 mg by mouth daily. Yes Historical Provider, ferrous sulfate 325 (65 Fe) MG tablet Take 325 mg by mouth daily. Yes Historical Provider, BP (!) 143/86 Pulse (!) 43 Comment: LOCOMOTIVE SUPERVISOR FernandoT is aware Temp 37.1 C (98.7 F) (Tympanic) Resp 16 SpO2 99% Physical Examination: Constitutional: No apparent distress, well nourished and in stable condition. Cardiac: Regular rate and rhythm Abdomen: Soft and nonacute Pulmonary: Clear bilaterally and no wheezing Neuro: Moves extremities X4 with no tremors HEENT: No gross cranial nerve defects and anicteric sclera Skin: Skin warm and dry with no visible rashes Vascular: Adequate perfusion of extremities with no cyanosis Psych: Alert and oriented x3 with appropriate affect Lymphatics: No swelling of arms/hands with no pedal edema Neck: FROM with no JVD Additional Notes:None DATA: Pertinent laboratory data personally reviewed by me. Radiology Review: Pertinent images personally reviewed by me. After review of the medical history and physical assessment, medications, allergies, patient's current medical condition, and labs, this patient is at acceptable risk for the planned surgical procedure and anesthestic at this surgical facility.} Impression Elevated PSA Plan Transrectal microultrasound and trans-perineal MRI-fusion prostate biopsy All aspects of the procedure, along with the pros & cons of intervention and the potential associated risks & complications have been discussed with the patient. Questions have been answered, and informed consent has been obtained. Electronically signed by: Aaron Sierra MD, 02/22/2025 at 12:36 PM documented in this encounter [facility] 02-22-2025 Note [facility] Comprehensive History and Physical Name: Sarai Ferguson : 1955 (Age-69 y.o.) Date of evaluation: 02/22/2025 Admitting Diagnosis: Elevated PSA [R97.20] Physician: Rigo Allergies Allergen Reactions Etodolac Penicillins Hives HPI: 69 year old man with elevated PSA Severity: Moderate Duration: >one month Review of systems negative except for items below: Past Medical History: Diagnosis Date Anemia Bradycardia Dyspnea Elevated PSA Hematoma of leg Hemorrhoids Hypercholesteremia Seborrhea Tinnitus There are no active problems to display for this patient. Past Surgical History: Procedure Laterality Date BASAL CELL CARCINOMA EXCISION N/A EYE SURGERY Bilateral 2008 laser lasic HAND SURGERY Left 2007 HEMORRHOIDECTOMY (HISTORICAL) N/A 2003 No family history on file. Medications: Prior to Admission medications Medication Sig Start Date End Date Taking? Authorizing Provider ascorbic acid (Vitamin C) 500 MG ER capsule Take 500 mg by mouth daily. Yes Historical Provider, atorvastatin (Lipitor) 10 MG tablet Take 10 mg by mouth daily. Yes Historical Provider, ferrous sulfate 325 (65 Fe) MG tablet Take 325 mg by mouth daily. Yes Historical Provider, BP (!) 143/86 Pulse (!) 43 Comment: ZOHRA KingDana is aware Temp 37.1 ?C (98.7 ?F) (Tympanic) Resp 16 SpO2 99% Physical Examination: Constitutional: No apparent distress, well nourished and in stable condition. Cardiac: Regular rate and rhythm Abdomen: Soft and nonacute Pulmonary: Clear bilaterally and no wheezing Neuro: Moves extremities X4 with no tremors HEENT: No gross cranial nerve defects and anicteric sclera Skin: Skin warm and dry with no visible rashes Vascular: Adequate perfusion of extremities with no cyanosis Psych: Alert and oriented x3 with appropriate affect Lymphatics: No swelling of arms/hands with no pedal edema Neck: FROM with no JVD Additional Notes:None DATA: Pertinent laboratory data personally reviewed by me. Radiology Review: Pertinent images personally reviewed by me. After review of the medical history and physical assessment, medications, allergies, patient's current medical condition, and labs, this patient is at acceptable risk for the planned surgical procedure and anesthestic at this surgical facility.} Impression Elevated PSA Plan Transrectal microultrasound and trans-perineal MRI-fusion prostate biopsy All aspects of the procedure, along with the pros & cons of intervention and the potential associated risks & complications have been discussed with the patient. Questions have been answered, and informed consent has been obtained. Electronically signed by: Aaron Sierra MD, 02/22/2025 at 12:36 PM [facility] 02-16-2025 Instructions Formatting of th is note might be different from the original. [facility] - Patient Pre-procedure Instructions [address] [id number] [address] May shower/brush teeth. Leave valuables/jewelry at home. No makeup, lotion, powder, deodorant or body sprays. No contact lenses No piercings or dark nail macedonian Sleep Apnea: If yes, please bring CPAP machine No solid food after midnight before procedure. Clear liquids only - up to 2 hours prior to your ARRIVAL time (water, clear juice, Gatorade, coffee/tea with no milk/sugar, no mints gum or candy. Medications to take the morning of surgery Take the following medications: daily prescription Do not take the following medications: hold vitamins, see below If you are taking Ozempic or Trulicity, or similar, please stop this medication 7 days before your scheduled procedure. If you are a diabetic and on additional diabetic medication please contact your doctor for instructions on how to take your other diabetic medications No Motrin, ibuprofen or Advil in 24 hours prior to surgery, longer if directed by your surgeon No Aleve or Naprosyn for 3 days prior to surgery or longer if instructed by your surgeon. If you take blood thinners or aspirin, follow instructions given to you by your surgeon You may take your prescription pain medication, you may take Tylenol for pain. Do not use/smoke THC or drink alcohol in the 24 hours prior to your arrival time. Please Bring your Financial Rep's license/photo ID, insurance card, eye drops/sunglasses, inhalers if applicable If you have a Medical Power of Medical Staff Services Manager, living will, or an advanced directive, please bring a copy with you. We are required to resuscitate and transfer you to the hospital along with your directive. If you need a work excuse, please reach out to your surgeon's office. You must have a transportation driver arranged. Uber, Lyft, taxi, public transit is not sufficient unless you have someone accompanying you. T [facility] 02-16-2025 Note [facility] - Patient Pre-procedure Instructions [address] [place] [address] [address] May shower/brush teeth. Leave valuables/jewelry at home. No makeup, lotion, powder, deodorant or body sprays. No contact lenses No piercings or dark nail macedonian Sleep Apnea: If yes, please bring CPAP machine No solid food after midnight before procedure. Clear liquids only - up to 2 hours prior to your ARRIVAL time (water, clear juice, Gatorade, coffee/tea with no milk/sugar, no mints gum or candy. Medications to take the morning of surgery Take the following medications: daily prescription Do not take the following medications: hold vitamins, see below If you are taking Ozempic or Trulicity, or similar, please stop this medication 7 days before your scheduled procedure. If you are a diabetic and on additional diabetic medication please contact your doctor for instructions on how to take your other diabetic medications No Motrin, ibuprofen or Advil in 24 hours prior to surgery, longer if directed by your surgeon No Aleve or Naprosyn for 3 days prior to surgery or longer if instructed by your surgeon. If you take blood thinners or aspirin, follow instructions given to you by your surgeon You may take your prescription pain medication, you may take Tylenol for pain. Do not use/smoke THC or drink alcohol in the 24 hours prior to your arrival time. Please Bring your Financial Rep's license/photo ID, insurance card, eye drops/sunglasses, inhalers if applicable If you have a Medical Power of Medical Staff Services Manager, living will, or an advanced directive, please bring a copy with you. We are required to resuscitate and transfer you to the hospital along with your directive. If you need a work excuse, please reach out to your surgeon's office. You must have a transportation driver arranged. Uber, Lyft, taxi, public transit is not sufficient unless you have someone accompanying you. [facility] 02-13-2025 Note Patient: Sarai hutchins Procedure Information Date/Time: 02/22/25 1430 Procedures: MICRO-ULTRASOUND AND TRANSPERINEAL MRI GUIDED - 60 MIN FUSION BIOPSY Location: [facility] 2 / [facility] Surgeons: Aaron Sierra MD Relevant Problems No relevant active problems Past Medical History: Past Medical History: No date: Anemia No date: Bradycardia No date: Dyspnea No date: Elevated PSA No date: Hematoma of leg No date: Hemorrhoids No date: Hypercholesteremia No date: Seborrhea No date: Tinnitus Past Surgical History: Past Surgical History: No date: BASAL CELL CARCINOMA EXCISION; N/A 2008: EYE SURGERY; Bilateral Comment: laser lasic 2006: HAND SURGERY; Left 2003: HEMORRHOIDECTOMY (HISTORICAL); N/A Social History: TOBACCO: reports that he has never smoked. He has never used smokeless tobacco. ETOH: reports current alcohol use. Social History Substance and Sexual Activity Drug Use Never Family History: No family history on file. Screening: unknown Clinical information reviewed: Physical Exam Airway Mallampati: I TM distance: >3 FB Neck ROM: full Mouth Open: normalendotracheal tube not in place Cardiovascular Rhythm: regular Dental Comments: bridge Pulmonary Abdominal Anesthesia Plan patient is NPO appropriate Any family history or previous problems with anesthesia no ASA 3 general Any family history or previous problems with anesthesia no The patient is not a current smoker. Anesthetic plan and risks discussed with patient. SIENA Screening Labs: No results found for: WBC, HGB, HCT, MCV, PLT No results found for: SODIUM, NA, POTASSIUM, K, CHLORIDE, CL, CO2, BUN, CREATININE, GLUCOSE, CALCIUM, PROT, BILIRUBINFL, ALKPHOS, AST, ALT, EGFR, GLOB No echocardiogram results found for the past 14 days No results found for this or any previous visit. Equipment Requests: Additional Equipment Requests [facility] 02-06-2025 Note Pt agrees to d/t/l a nd instructions for procedure. Informed Pt that someone from [facility] [place] the day prior with arrival/surgery time. Voiced understanding Doctor: Rigo Surgery Date: 02/22/25 at [facility] [place] Time: [facility] will call the day prior with time Surgery instructions: Nothing to eat after midnight. You can have clear liquids black coffee (no cream or dairy), tea, water, Sprite, apple juice, Gatorade (no reds or purples) up until 2 hours prior to arrival time. Medication instructions: Hold Aspirin, fish oil and over the counter vitamins 5 days prior to surgery [facility] 02-06-2025 Telephone encounter Note Pt agrees to d/t/l and instructions for procedure. Informed Pt that someone from [facility] [place] call the day prior with arrival/surgery time. Voiced understanding Doctor: Rigo Surgery Date: 02/22/25 [place] [facility] [place] Time: [facility] will call the day prior with time Surgery instructions: Nothing to eat after midnight. You can have clear liquids black coffee (no cream or dairy), tea, water, Sprite, apple juice, Gatorade (no reds or purples) up until 2 hours prior to arrival time. Medication instructions: Hold Aspirin, fish oil and over the counter vitamins 5 days prior to surgery [facility] 02-06-2025 Miscellaneous Notes Pt agrees to d/t/l and instructions for procedure. Informed Pt that someone from [facility] will call the day prior with arrival/surgery time. Voiced understanding Doctor: Rigo Surgery Date: 02/22/25 at [facility] Surgery Time: [facility] will call the day prior with time Surgery instructions: Nothing to eat after midnight. You can have clear liquids black coffee (no cream or dairy), tea, water, Sprite, apple juice, Gatorade (no reds or purples) up until 2 hours prior to arrival time. Medication instructions: Hold Aspirin, fish oil and over the counter vitamins 5 days prior to surgery Name of Caller: Sarai Contact Reason for Appointment: Please call Sarai to schedule procedure. Office Name: Urology MRI was uploaded and Dr. Sierra said the imaging would be fine to proceed SURGERY SCHEDULING Surgeon: Dr. Aaron Sierra PROCEDURE: micro-ultrasound guided transperineal MRI fusion biopsy DIAGNOSIS: elevated PSA FACILITY: [facility] DETAILS: OUTPT ANESTHESIA: GENERAL documented in this encounter [facility] 02-05-2025 Note Name of Caller: Booker jefferson Contact Reason for Appointment: Please call Sarai to schedule procedure. Office Name: Urology [facility] 02-05-2025 Telephone encounter Note Name of Caller: Sarai Contact Reason for Appointment: Please call Sarai to schedule procedure. Office Name: Urology [facility] 02-05-2025 Telephone encounter Note MRI was uploaded and Dr. Sierra said the imaging would be fine to proceed [facility] Work Phone: 01-30-2025 Note SURGERY SCHEDULING Surgeon: Dr. Aaron Sierra PROCEDURE: micro-ultrasound guided transperineal MRI fusion biopsy DIAGNOSIS: elevated PSA FACILITY: [facility] DETAILS: OUTPT ANESTHESIA: GENERAL [facility] 01-30-2025 Telephone encounter Note SURGERY SCHEDULING Surgeon: Dr. Aaron Sierra PROCEDURE: micro-ultrasound guided transperineal MRI fusion biopsy DIAGNOSIS: elevated PSA FACILITY: [facility] DETAILS: OUTPT ANESTHESIA: GENERAL [facility] 01-30-2025 History of Presen t illness Narrative Images from the original note were not included. Nir Funes, MSN, FLOOD CONTROL ENGINEER, AGNP-C 01/30/2025 Urology Office Visit [facility] [address] [facility] [address] [facility] [id number] PATIENT NAME: Sarai Ferguson DATE OF : 1955 REFERRING PROVIDER: Yifan Booth, * PCP: Yifan Booth TODAY'S DATE: 01/30/2025 Visit type: New patient HPI: Sarai is a 69 y.o. male who presents today with chief complaints of: elevated PSA Had MRI of prostate 12/18/2024 at [facility]. Results scanned into system. Having lumbar MRI completed to see the lesions in lumbosacral junction. Patient was seeing urology in [place] but stated they were told to come here because they have heard we have the best team around. Urology history: New to our practice PSA trends: 11/13/2024: 7.8 10/12/2024: 12.9 07/05/2024: 7.4 Family history: He has denies family history of prostate cancer. Current voiding symptoms: Patient reports voiding approximately every 2-3 hours. Nocturia: yes, x1/nightly Urinary urgency: no Urge urinary incontinence: no Stress urinary incontinence: no Dysuria: no Gross hematuria: no Urinary stream: good urinary stream Urinary hesitancy: no Urinary intermittency: no Post void dribbling: no Per patient: Patient does completely empty bladder with voiding. 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 Past Medical History: Diagnosis Date Anemia Bradycardia Dyspnea Elevated PSA Hematoma of leg Hemorrhoids Hypercholesteremia Seborrhea Tinnitus Past Surgical History: Procedure Laterality Date BASAL CELL CARCINOMA EXCISION N/A EYE SURGERY Bilateral 2008 laser lasic HAND SURGERY Left 2007 HEMORRHOIDECTOMY (HISTORICAL) N/A 2003 Allergies Allergen Reactions Etodolac Penicillins Hives Physical Exam: BP 122/74 Pulse 56 Ht 5' 10 (1.778 m) Wt 168 lb (76.2 kg) BMI 24.11 kg/m Physical Exam Vitals and nursing note reviewed. Constitutional: General: He is not in acute distress. Appearance: Normal appearance. He is not ill-appearing or toxic-appearing. Pulmonary: Effort: Pulmonary effort is normal. Genitourinary: Prostate: Not enlarged, not tender and no nodules present. Neurological: Mental Status: He is alert and oriented to person, place, and time. Psychiatric: Behavior: Behavior normal. Judgment: Judgment normal. Pertinent Labs: CBC: No results found for: WBC, HGB, HCT, MCV, PLT CMP: No results found for: NA, K, CL, CO2, BUN, CREATININE, GLUCOSE, ALT, AST, ALKPHOS Testosterone: No results found for: TESTOSTERONE PSA: No results found for: PSA, PSATOTALIN Hemoglobin A1C: No results found for: HGBA1C Urinalysis: No results found for: COLORU, CLARITYU, GLUCOSEUR, BILIRUBINUR, KETONESU, SPECGRAV, RBCUR, PHUR, PROTUR, UROBILINOGEN, LEUKOCYTESUR, NITRITE Urine Culture: No results found for: URINECX, URCULTREFLEX Imaging and results/record review: Imaging: MRI of prostate from [facility] PIRADS 4 lesion in mid to apical left anterior PZ PIRADS 3 lesion in the right posterolateral PZ apex Distal right external iliac, non-specific. Indeterminate left lumbosacral lesions Other results/records reviewed: referral Assessment and Plan: Diagnosis Plan 1. Elevated PSA Diagnosis 1: Elevated PSA Discussed next steps with patient. Patient has already had MRI of pelvis with and without. Next steps would be for biopsy of the prostate Had discussion with patient regarding indications, risk, and benefits of biopsy. Explained to patient that this is done in our outpatient surgery center as a transrectal ultrasound-guided, transperineal MRI fusion prostate biopsy under anesthesia. Discussed with patient that he will need to have a transportation driver for the procedure to take him to and from appointment. We also reviewed post procedural plan of care. Explained that it is normal to expect blood in the urine, blood in the semen, and blood in the stool up to 2 weeks postbiopsy. Also discussed with patient to use ice in 10 to 15-minute increments to the perineal area for any discomfort. Advised patient not to put ice directly to the skin as to prevent frostbite. Discussed with patient that although this is a lower risk of infection, infections after a prostate biopsy do require immediate ER evaluation as these can be life-threatening infections. All patient questions answered. Patient voiced understanding. Patient agreed with treatment plan. Discussed adverse effects and side effects of medication treatment. Follow up: biopsy of prostate Nir Funes, MSN, FLOOD CONTROL ENGINEER, AGNP-C [facility] Please note that portions of this chart were dictated using [employer] electronic voice recognition software. It is possible that typos and/or omissions and/or substitutions of words and/or phrases may exist, which may alter the intended meaning of the dictating provider. documented in this encounter [facility] 01-02-2025 Note Referral received up loaded into media - referral for elevated PSA; Called the patient scheduled first avail 01/30/25 2:[address] Gillette in [place]. [facility] 01-02-2025 Telephone encounter Note Referral received uploaded into media - referral for elevated PSA; Called the patient scheduled first avail 01/30/25 2:[address] Gillette in [place]. [facility] 01-02-2025 Miscellaneous Notes Referral received uploaded into media - referral for elevated PSA; Called the patient scheduled first avail 01/30/25 2:[address] Gillette in [place]. Insurance information verified - scanned into Media. Pt called back to ask if a referral was received yet. Should be in from [facility]. Pt provided the office phone number . I reached out and spoke with Carmen who states they were having issues with their fax machine. I verified our fax number which they didn't have correct. Will send out today. Will reach out to the patient upon receiving the referral. When speaking with the patient we Will need to obtain [employer] card information; a copy of the card. Per Padmini the card information provided is not working. New patient called in asking to see DR Gillette for a 2nd opinion. Seeing [facility] and had an US and MRI done. Pt states his PSA levels are elevated. The patient has [employer] - RTE error message occurred. I'm unable to process insurance into the patient chart. I advised the pt a Referral is needed and the patient will need to bring his imaging disc to the appt once scheduled. Pt states he is seeing his PCP tomorrow and will request a referral from his PCP to be sent. *The patient has [employer] - RTE error message occurred. I'm unable to process insurance into the patient chart.* documented in this encounter [facility] 01-02-2025 Telephone encounter Note Insurance information verified - scanned into Media. [facility] 01-02-2025 Note Pt called back to as k if a referral was received yet. Should be in from [facility]. Pt provided the office phone number . I reached out and spoke with Carmen who states they were having issues with their fax machine. I verified our fax number which they didn't have correct. Will send out today. Will reach out to the patient upon receiving the referral. When speaking with the patient we Will need to obtain [employer] Insurance card information; a copy of the card. Per Padmini the card information provided is not working. [facility] 01-02-2025 Telephone encounter Note Pt called back to ask if a referral was received yet. Should be in from [facility]. Pt provided the office phone number . I reached out and spoke with Carmen who states they were having issues with their fax machine. I verified our fax number which they didn't have correct. Will send out today. Will reach out to the patient upon receiving the referral. When speaking with the patient we Will need to obtain [employer] Insurance card information; a copy of the card. Per Padmini the card information provided is not working. [facility] 12-26-2024 Telephone encounter Note New patient called in asking to see DR Gillette for a 2nd opinion. Seeing [facility] and had an US and MRI done. Pt states his PSA levels are elevated. The patient has [employer] - RTE error message occurred. I'm unable to process insurance into the patient chart. I advised the pt a Referral is needed and the patient will need to bring his imaging disc to the appt once scheduled. Pt states he is seeing his PCP tomorrow and will request a referral from his PCP to be sent. *The patient has [employer] - RTE error message occurred. I'm unable to process insurance into the patient chart.* [facility] 12-26-2024 Miscellaneous Notes New patient called in asking to see DR Gillette for a 2nd opinion. Seeing [facility] and had an US and MRI done. Pt states his PSA levels are elevated. The patient has [employer] - RTE error message occurred. I'm unable to process insurance into the patient chart. I advised the pt a Referral is needed and the patient will need to bring his imaging disc to the appt once scheduled. Pt states he is seeing his PCP tomorrow and will request a referral from his PCP to be sent. *The patient has [employer] - RTE error message occurred. I'm unable to process insurance into the patient chart.* documented in this encounter [facility] 11-02-2024 Evaluation note Diagnosis Onset Date Resolution Pure hypercholesterolemia chronic November 02, 2024 2:48pm [facility] Work Phone: [phone]) 452-724808-23-2021 NoteHNO ID: [id number] Author: Gabriela Sanchez PA-C Service: ? Author Type: Physician Sheep Farm Manager Type: Progress Notes Filed: 06/09/2021 3:13 PM Note Text: In lieu of an in-person visit due to COVID-19 concerns, a virtual visit was performed on the patient. Patient is aware that I am not fully able to assess symptoms and do a full physical examination including vital signs assessment at this time. Patient consents to this encounter. FOLLOW UP VISIT - ENDOSCOPY NAME: Sarai Ferguson [facility] NO.: [id number] DATE OF SERVICE: 06/09/2021 : 1955 REFERRING PHYSICIAN: Yifan Booht MD Sarai is a patient I am following for iron deficiency anemia. Dr. Méndez performed upper and lower endoscopy on 06/02/21. The patient was found to have small hiatal hernia, gastritis and normal duodenal bulb on upper endoscopy. Colonoscopy showed non-bleeding internal hemorrhoids, otherwise normal. Pathology demonstrated: FINAL DIAGNOSIS Stomach, antrum, biopsy (A) - Gastric oxyntic-type mucosa with no significant pathologic change. - No intestinal metaplasia or morphologic evidence of Helicobacter pylori organisms. The patient notes no complaints since the procedure. On limited video-enabled visual exam: General: patient is alert, cooperative, pleasant and in no acute distress Normal speech and affect, answers all questions appropriately Assessment IMPRESSION: s/p upper and lower endoscopy for evaluation of anemia. Mild gastritis and small hiatal hernia. Internal hemorrhoids. No signs of bleeding on upper or lower endoscopy PLAN: The operative findings and pathology report were reviewed with the patient, and the patient has had the opportunity to ask questions and have questions answered. Reviewed dietary and lifestyle modifications for gastritis and small hiatal hernia and discussed possible short-term PPI use. Patient states he is asymptomatic currently and would like to hold off on starting any medication at present time. If the patient notes any problems or changes in bowel function, the patient should contact me immediately. Otherwise I recommend follow up endoscopy in 10 years. HM updated and recall letter generated. Recommend following up with PCP regarding anemia. Patient verbalized understanding of all above and agreed with the plan Diagnoses: (K29.50) Mild chronic gastritis (primary encounter diagnosis) (K64.8) Internal hemorrhoids (K44.9) Hiatal hernia I spent 25 minutes in the visit, with more than 50% of the total [id number] time of the visit in counseling / coordination of care. MILENA [facility]08-16-2021 NoteHNO ID: [id number] Author: Reyna Hinojosa RN Service: ? Author Type: Registered Nurse Type: Nursing Progress Note Filed: 06/02/2021 8:51 AM Note Text: Pt's pulse running 38-42. Dr. Méndez notified and okay to proceed. Reyna Hinojosa [facility]NM[facility]08-[facility]-20[facility] NoteHNO ID: [id number] Author: Gabriela Sanchez PA-C Service: ? Author Type: Physician Sheep Farm Manager Type: Progress Notes Filed: 05/26/2021 8:45 AM Note Text: HISTORY AND PHYSICAL Sarai Ferguson 1955 REFERRING PHYSICIAN: Yifan Booth, * CHIEF COMPLAINT: Consult (Colonoscopy AND EGD) HPI: The patient is a 65 year old male referred for endoscopy. Sarai notes he was recently diagnosed with iron deficiency anemia and has been started on oral iron supplementation by his PCP. Patient denies any change in bowel habits, weight changes, visible blood in stools, black tarry stools or abdominal pain. Denies family history of colon issues. The patient notes no upper GI complaints. PCP was concerned about possible GI source of blood loss and patient is referred for upper and lower endoscopy. Sarai has undergone prior colonoscopy [place] [address] Méndez. Patient's past medical history is significant for hemorrhoids and hyperlipidemia. He recently underwent cardiac workup for shortness of breath and chest pressure, records from are reviewed. Patient had a cardiac cath which came back normal and reports feeling greatly improved just since starting on iron. Patient notes he eats a mostly plant-based diet. Denies problems with sedation in the past. PAST MEDICAL HISTORY Diagnosis Date - Hemorrhage of rectum and anus - Hyperlipidemia - Unspecified hemorrhoids without mention of complication PAST SURGICAL HISTORY Procedure Laterality Date - COLONOSCOP W/ OR W/O [facility] SPEC 09/28/11 - HEMORRHOID;BAND LIGAT, SNGL/MUL 2003 Hemorrhoidectomy - PAST SURGICAL HISTORY OF 2007 Lt hand surgery Current Outpatient Medications Medication Sig - atorvastatin (LIPITOR) 10 mg ORAL tablet Take 10 mg by mouth once daily. - Aspirin 81 mg ORAL Tab Take 81 mg by mouth once daily. No current facility-administered medications for this visit. ALLERGIES: Penicillins PERSONAL HISTORY: Social History Tobacco Use - Smoking status: Never Smoker - Smokeless tobacco: Never Used Substance Use Topics - Alcohol use: Not on file - Drug use: Not on file FAMILY HISTORY: FAMILY HISTORY Problem Relation Age of Onset - Alcohol/Drug Brother - Diabetes Father - Diabetes Maternal Grandmother - Diabetes Maternal Grandfather - Cancer Maternal Grandmother - Cancer Maternal Grandfather - Diabetes Paternal Grandmother - Diabetes Paternal Grandfather - Colon Cancer Maternal Grandmother REVIEW OF SYMPTOMS: The review of systems data was entered by the nurse and reviewed by me Nursing Notes: Bethanie Heart LPN 05/26/2021 8:10 AM Signed REVIEW OF SYSTEMS: General: The patient denies fatigue, denies weight loss, denies weight gain, denies feeling hot, and denies feelings of cold. Eyes: The patient denies glaucoma, NOTES eye injury/surgery, does not wear glasses or contacts. Ear/Nose/Throat: The patient NOTES allergies, NOTES hayfever, denies ear infections, and denies bloody noses. Cardiovascular: The patient denies chest pain, denies heart disease, denies high blood pressure,denies cardiac stent, denies prior heart attack, denies irregular heart beat, denies high cholesterol, denies poor circulation, denies heart failure, other cardiac issues, denies claudication, denies cold feet, NOTES peripheral arterial stent. Respiratory: The patient denies tuberculosis, denies pneumonia, denies frequent cough, denies pulmonary embolism, denies shortness of breath, and denies coughing up blood. Gastrointestinal: The patient denies difficulty swallowing, NOTES acid reflux, denies ulcers, denies vomiting, denies jaundice/hepatitis, denies gallbladder problems, denies black or tarry stools, DENIES hemorrhoids,NOTES bleeding from rectum, denies diverticulitis, NOTES constipation, denies diarrhea, denies loss of stool control, and denies hernias. Kidney/Bladder: The patient denies kidney stones, denies urine infections, and denies bloody urine. Skin: The patient denies a history of skin cancer, denies bleeding/changing moles, and denies a history of skin rash. Neurologic: The patient denies a history of epilepsy/convulsions, denies headaches, denies head/spinal injuries, and denies stroke/TIA. Psychiatric: The patient denies psychiatric medications, denies depression, and denies voices, denies substance abuse. Endocrine: The patient denies thyroid disorders, denies diabetes, and denies hormonal problems. Hematologic: The patient denies a history of bruising, denies bleeding, and NOTES anemia, denies blood clots. Infections: The patient NOTES a history of measles and mumps, denies rheumatic fever, and denies sexually transmitted diseases. Musculoskeletal: The patient denies back pain/injury, denies back problems, denies sciatica, NOTES knee/foot trouble, denies arthritis, or denies gout. When was patient's last Mammogram screening? N/A Last Colonoscopy: 09/08/2011 Bethanie Heart LPN I h (more content not included)...[facility] Hospital[facility] noteNo assessment information availableWNorwalk Memorial Hospital Work Phone: Evaluation note* Diagnosis Onset Date Resolution Status Dyspnea on exertion acute Abnormal stress test chronic Family history of cardiovascular disease chronic Pure hypercholesterolemia [facility] Work Phone: Evaluation note* Diagnosis Elevated PSA- Primary Elevated prostate specific antigen (PSA) [facility]* Diagnosis Elevated PSA Elevated prostate specific antigen (PSA) [facility]* Diagnosis Elevated PSA- Primary Elevated prostate specific antigen (PSA) [facility] (narrative)No reason for referral information availableWNorwalk Memorial Hospital Work Phone: Reason for visit Narrative* Auth/Cert (Routine) Specialty Diagnoses / Procedures Referred By Contac t Referred To Contact Diagnoses Elevated PSA Elevated PSA Procedures CHG US GUIDANCE NEEDLE PLACEMENT IMG S&I AK PROSTATE NEEDLE BIOPSY ANY APPROACH MICRO-ULTRASOUND AND TRANSPERINEAL MRI GUIDED FUSION BIOPSY Aaron Sierra MD [address] [place] [id number] Phone: tel: fax: Referral ID Status Reason Start Date Expiration Date Visits Re quested Visits Authorized [id number] 02/06/20[address] [facility] Summary Purpose Family History Relationship Condition Age at Onset Recorded Date/T marcell brother Hypertension Unknown Mixed hyperlipidemia Unknown grandfather Myocardial infarction Unknown father Malignant neoplasm Unknown Diabetes mellitus Unknown mother Hypertension Unknown brother Myocardial infarction 50 Advance Directives Advance Directive Response Recorded Date/ Time Advance Directives Yes May 11 7:56am Living Will Yes May 11, 2022 7:56am Power of Medical Staff Services Manager Yes May 11 7:56am Advance Directive Response Recorded Date/ Time Advance Directives Yes May 11 6:56am Living Will Yes May 11, 2022 6:56am Power of Medical Staff Services Manager Yes May 11 6:56am Advance Directive Response Recorded Date/ Time Living Will Yes May 11, 2022 7:56am Power of Medical Staff Services Manager Yes May 11 7:56am Advance Directives Yes May 11 7:56am Date Activated Date Inactivated Comments 02/22/2025 11:55 AM 02/23/2025 2:39 AM Date Activated Date Inactivated Comments 02/22/2025 11:55 AM 02/23/2025 2:39 AM Chief Complaint and Reason for Visit Chief Complaint ABN HM EKG PER [facility] ANEMIA UNSPECIFIED ANEMIA UNSPECIFIED Amb Documentation Reason for Visit Dyspnea on exertion Abnormal stress test Family history of cardiovascular disease Pure hypercholesterolemia Chief Complaint Admit Date 1 y fu PREV PFM PT November 02, 2024 2 :48pm ELEVATED PSA December 18, 2024 11:0 3am Reason for Visit Admit Date Pure hypercholesterolemia November 02, 2024 2:48pm Additional Source Comments (unrecognized sect ion and content) No Status Records FoundNo Status Records FoundNo Status Records Found INFORMATION SOURCE (unrecogn ized section and content) DATE CREATED AUTHOR 11/16/2021 [facility] DATE CREATED AUTHOR AUTHOR'S ORGANIZ ATION 02/09/2025 [facility] DATE CREATED AUTHOR AUTHOR'S ORGANIZ ATION 02/28/2025 [facility] Care Teams (unrecognized sec tion and content) Team Status: Active Member Role Status Dates Dr. Dallas Booth MD Family Provider Active Dr. Dallas Booth MD Primary Care Provider Activ e Team Status: Inactive Member Role Status Dates Dr. Dallas Booth MD Primary Care Provider, Attending Provider, Referring Provider Active Team Status: Inactive Member Role Status Dates Dr. Dallas Booth MD Primary Care Provider, Refe rring Provider Active Kan Chung [employer] B[employer] PLAYER, MINOR LEAGUE BASEBALL PLAYER-C Attending Provider Active Team Status: Active Member Role Status Dates Dr. Dallas Booth MD Primary Care Provider Activ e Kan Chung [employer] LEAGUE BASEBALL PLAYER, MINOR LEAGUE BASEBALL PLAYER-C Referring Provider, Other Provide r Active Dr. Chester Chun MD Attending Provider Active Team Status: Active Member Role Status Dates Dr. Dallas Booth MD Primary Care Provider Activ agustin Chung [employer] LEAGUE BASEBALL PLAYER, MINOR LEAGUE BASEBALL PLAYER-C Attending Provider Active Team Status: Inactive Member Role Status Dates Dr. Dallas Booth MD Primary Care Provider Activ agustin Chung [employer] LEAGUE BASEBALL PLAYER, MINOR LEAGUE BASEBALL PLAYER-C Attending Provider, Referring Pro vider Active [employer] Relationship Specialty Start Date End Date Nir Gillette MD [address] [place] [address] Surgeon Urology 12/26/24 [employer] Relationship Specialty Start Date End Date Nir Gillette MD [address] [place] [address] Surgeon Urology 12/26/24 [employer] Relationship Specialty Start Date End Date Nir Gillette MD [address] [place] [address] Surgeon Urology 12/26/24 Team Status: Active Member Role Status Dates Dr. Yifan Booth MD Primary Care Provider Acti ve Team Status: Inactive Member Role Status Dates Dr. Yifan Booth MD Primary Care Provider Acti ve Start: October 12, 2024 End: October 12, 2024 Dr. Yifan Booth MD Attending Provider Active Start: October 12, 2024 End: October 12, 2024 Dr. Yifan Booth MD Referring Provider Active Start: October 12, 2024 End: October 12, 2024 Team Status: Inactive Member Role Status Dates Dr. Yifan Booth MD Primary Care Provider Acti ve Start: November 02, 2024 End: November 02, 2024 Dr. Yifan Booth MD Referring Provider Active Start: November 02, 2024 End: November 02, 2024 Dr. Chester Chun MD Attending Provider Active S tart: November 02, 2024 End: November 02, 2024 Team Status: Inactive Member Role Status Dates Dr. Yifan Booth MD Primary Care Provider Acti ve Start: November 13, 2024 End: November 13, 2024 Dr. Liu Cuevas MD Attending Provider Active Start: November 13, 2024 End: November 13, 2024 Dr. Liu Cuevas MD Referring Provider Active Start: November 13, 2024 End: November 13, 2024 Team Status: Inactive Member Role Status Dates Dr. Yifan Booth MD Primary Care Provider Acti ve Start: December 18, 2024 End: December 18, 2024 Dr. Liu Cuevas MD Attending Provider Active Start: December 18, 2024 End: December 18, 2024 Dr. Liu Cuevas MD Referring Provider Active Start: December 18, 2024 End: December 18, 2024 [employer] Relationship Specialty Start Date End Date Yifan Booth [address] [place] [phone] PCP - General Family Medicine 01/30/25 Nir Gillette MD [address] [place] [address] Surgeon Urology 12/26/24 [employer] Relationship Specialty Start Date End Date Yifan Booth [address] [place] [phone] PCP - General Family Medicine 01/30/25 Nir Gillette MD [address] [place] [address] Surgeon Urology 12/26/24 [employer] Relationship Specialty Start Date End Date Yifan Booth [address] [place] [address] PCP - General Family Medicine 01/30/25 Nir Gillette MD [address] [place] [address] Surgeon Urology 12/26/24 Aaron Sierra MD [address] [place] [phone] Surgeon Urology 02/22/25 [employer] Relationship Specialty Start Date End Date Yifan Booth [address] [place] [address] PCP - General Family Medicine 01/30/25 Nir Gillette MD [address] [place] [address] Surgeon Urology 12/26/24 Aaron Sierra MD [address] [place] [phone] Surgeon Urology 02/22/25 Goals (unrecognized section and content) Goals may be documented in a n alternate sectionGoals may be documented in an alternate sectionGoals may be documented in an alternate section Reason for Visit (unrecogniz ed section and content) Reason Comments Elevated PSA 7.40, nocturia x 1-2 , denies burning, pain or bleeding with voiding, feels like he's emptying Specialty Diagnoses / Procedures Referred By Contac t Referred To Contact Urology Diagnoses Elevated prostate specific antigen (PSA) Procedures Eval and [place] Yifan Booth [address] [place] [address] Phone: tel: fax: [facility] [place] [address] [place] [address] Phone: tel: fax: Referral ID Status Reason Start Date Expiration Date V isits Requested Visits Authorized [id number] Pending Review 01/02/2025 01/02/2026 1 1 Reason Onset Date Comments Surgery Scheduling 01/30/2025 MRI fusion bi opsy Reason Onset Date Comments Results 02/27/2025 Prostate biopsy FOR RECORDS PERTAINING TO PATIENTS WHO ARE OR HAVE BEEN ENROLLED IN A CHEMICAL DEPENDENCY/SUBSTANCEABUSE PROGRAM, SOME INFORMATION MAY BE OMITTED. This clinical summary was aggregated from multiple sources. Caution should be exercised in using it in the provision of clinical care. This summary normalizes information from multiple sources, and as a consequence, information in this document may materially change the coding, format and clinical context of patient data. In addition, data may be omitted in some cases. CLINICAL DECISIONS SHOULD BE BASED ON THE PRIMARY CLINICAL RECORDS. [employer] provides no warranty or guarantee of the accuracy or completeness of information in this document.
[2025-04-07] MEDS: Morphine 4 MG/ML Syringe IV (21:00)
[2025-04-07] MEDS: 0.9% Normal Saline (1000mL) 1,000 ML 999 ML IV (21:00)
[2025-04-07 21:05] LABS: Prothrombin Time (Protime)PT. 13.4 SECONDS (11.7-14.9)
[2025-04-07 21:06] LABS: Partial Thromboplast Time 35.1 Seconds (24.1-36.2)
[2025-04-07 21:15] LABS: Anion Gap 10 (5-15); BUN 17 mg/dL (4-19); BUN/Creat Ratio 14.3 RATIO (10-20); Calcium,Total 8.7 mg/dL (7.6-11.0); Carbon Dioxide 25.5 mmol/L (21.0-32.0); Chloride 105 mmol/L (98-108); Creatinine, Serum 1.15 mg/dL (0.70-1.20); EST Glomerular Filtration Rate 69 (>60); Glucose 103 mg/dL (70-99); Potassium 4.1 mmol/L (3.3-5.1); Sodium Level 141 mmol/L (133-145)
[2025-04-07 21:40] LABS: Lactic Acid < 1.0 mmol/L (0.0-2.0)
[2025-04-07] MEDS: 0.9% Normal Saline (1000mL) 1,000 ML 100 ML IV (22:17)
[2025-04-07] MEDS: Propofol 200 MG/20 ML Vial IV BOLUS (22:18)
== END 2025-04-07 22:39 | disposition home or self-care (01) ==
PROVIDERS: Emergency Provider Emergency Medicine; PCP Family Medicine; Visit Provider Emergency Medicine
DX: K40.90 Unilateral inguinal hernia, without obstruction or gangrene, not specified as recurrent (principal)
CPT/HCPCS: 74176; 80048; 83605; 85025; 85610; 85730; 96361; 96374; 96376; 99284; A4216

== ENCOUNTER 2025-04-13 11:21 | Day surgery (SDC) | payer MEDICARE, SELFPAY ==
--- NOTE | 2025-04-12 13:45 | PAT.ANE_ITS ---
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 When Was Last Pacemaker Check QUESTION #4 FULL TEXT: You/Your Family Experience fever (hyperthermia) with Anesthesia Last Oral Intake Last Oral intake: Last Oral Intake NPO since Meds taken in AM with sips of water? Meds patient instructed to take am of surgery PONV PONV - dairy equipment specialist: PONV - dairy equipment specialist Female No 04/12/25 08:29 HX of Motion Sickness No 04/12/25 08:29 HX of N/V After Surgery No 04/12/25 08:29 Non-Smoker Yes 04/12/25 08:29 Duration of Surgery greater Yes 04/12/25 08:29 than 60 minutes Number of Risk Factors 2 04/12/25 08:29 PONV Score Moderate Risk 04/12/25 08:29 Height & Weight Height & Weight: Anesthesia: Height & Weight Height 5 ft 10 in 04/11/25 14:06 Respiratory Assessment Respiratory Assessment - dairy equipment specialist: Respiratory Tract Infection Hx - dairy equipment specialist Hx Respiratory Tract Infection No 04/12/25 08:29 STOP Sleep Apnea STOP Sleep Apnea - dairy equipment specialist: STOP Sleep Apnea - dairy equipment specialist Hx Hypertension No 04/12/25 08:29 Hx Sleep Apnea No 04/12/25 08:29 CPAP BIPAP Do you snore loudly (louder No 04/12/25 08:29 than talking or can be heard Do you often feel tired/ No 04/12/25 08:29 fatigued/ sleepy during daytime? Has anyone observed you stop No 04/12/25 08:29 breathing during sleep? STOP Results Negative 04/12/25 08:29 QUESTION #5 FULL TEXT : Do you snore loudly (louder than talking or can be heard through closed doors)? Tobacco Use History Tobacco Use History - dairy equipment specialist: Tobacco Use History - dairy equipment specialist Tobacco Use Smoking Status Never smoker 04/12/25 08:29 Hx Tobacco Use No 04/12/25 08:29 Years Smoking Packs Smoked per Day Smoking Cessation Date was within the last 15 years Hx Smoking Cessation Date Hx Smoking Cessation Counseling Hematologic Medial History Hematologic Hx - dairy equipment specialist: Hematologic Medical Hx - pumper head Hx of Blood Transfusion No 04/12/25 08:29 Hx of Transfusion in last 3 No 04/12/25 08:29 Months Date of Last Transfusion (if within last 3 months) Ever experience any problems No 04/12/25 08:29 with transfusion(s)? Specify any problems Hx of Preganancy in last 3 N/A 04/12/25 08:29 Months Nurse Filling Out Transfusion DSCHRIBER 04/12/25 08:29 & Questions: Date: 04/12/25 04/12/25 08:29 Time: 08:30 04/12/25 08:29 Patient unable to answer at this time (ie. confused, unrespo /Reproduction History /Reproductive History - dairy equipment specialist: /Reproductive Hx- dairy equipment specialist Hx Now No 04/12/25 08:29 Gestational Age (in weeks): EDC: Hx Hx Para Hx Section SAB No 04/12/25 08:29 [facility] Medical History (Updated 04/12/25 @ 08:36 by Gina Andersen) Tinnitus of both ears Wears hearing aid Wears glasses Alcohol use Low iron High cholesterol History of ulceration Heartburn Non-smoker History of stress test Normal Holter exam History of echocardiogram Bradycardia Cardiology follow-up encounter Anemia Pure hypercholesterolemia Foreign body in left ear, initial encounter Home Medications ?Medication ?Instructions ?Recorded ?Last Taken ?Type atorvastatin 10 mg tablet (Lipitor) 10 mg PO DAILY 10/05 Unknown History ferrous sulfate 325 mg (65 mg 325 mg PO DAILY 03/31/21 Unknown History iron) tablet ascorbic acid (vitamin C) 500 mg 500 mg PO DAILY 08/27 Unknown History tablet multivitamin 1 tab PO DAILY 08/27/23 Unkn own History ketoconazole 2 % shampoo 1 applic topical .Q3x/w PRN skin 02/28/24 Unknown History Allergy/AdvReac Type Severity Reaction Status Date / Time Penicillins Allergy Unknown Verified 04/12/25 08:27 Family History Brother Hypertension Mixed hyperlipidemia Grandfather Myocardial infarction Father Cancer Lung Diabetes Mother Hypertension Mixed hyperlipidemia Brother Myocardial infarction, Onset Age: 50 Surgical History (Updated 04/12/25 @ 08:36 by Gina Andersen) Hx of colonoscopy Hx of prostate biopsy History of left heart catheterization (LHC) (~04/09/21) History of hand surgery History of hemorrhoidectomy Social History Smoking Status: Never smoker alcohol intake: current alcohol intake frequency: a few times a week substance use type: does not use caffeine: Yes Type: coffee Number of servings: 2 Audit: Pertinent Findings Pertinent Findings EKG Perinent findings: September 16, 2023. Marked sinus bradycardia with occasional ectopic ventricular beat. Nonspecific T abnormality. Stress test pertinent findings: 09/16/2023. Patient achieved 10.1 METS. No EKG criteria for ischemia at a high workload. Echo (EF%) pertinent findings: March 25, 2021. EF is 65%. RVSP is 28 mmHg. No aortic stenosis is noted. Heart catheterization pertinent findings: 04/10/2021. EF of 60%. Elevated left ventricular end-diastolic pressure. Normal left ventricular size and systolic function. Angiographically normal coronary arteries. Recommendations for medical therapy. Consult pertinent findings: November 02, 2024. Dr. Chun. 1. Pure hypercholesterolemia?chronic-continue atorvastatin. Continue current medical therapy. No further cardiology workup at this time. Additional pertinent findings: 08/02/2023. 48-hour event recorder-predominant rhythm is sinus bradycardia. PAC burden is 0.3%. PVC burden is 2.1%. Recommendation Anesthesia Recommendation Anesthesia recommendation: OPTIMIZED for anesthesia
[2025-04-13] VITALS (10 sets, daily range): BP systolic 134–159; BP diastolic 77–88; PULSE 40–64; RESP 14–16; TEMP 2.2–36.7; O2SAT 94–100; BMI 23.7
--- NOTE | 2025-04-13 11:45 | HP.PCM_ITS ---
History and Physical Date of Admission: 04/13/25 Date of Service: 04/11/25 MR#: [id number] Acct: [id number] Name: SARAI FERGUSON Rep #: [id number] : 1955 Provider: Dr. Irene Wilkinson MD Age/Sex: 69/M Location: [facility] Status: Signed Intake Vital Signs 04/07/2519:07 04/11/2514:06 Height 5 ft 10 in 5 ft 10 in Weight: 168 lb BMI 24.0 BP 144/74 H Blood Pressure Location Rt brachial Position Sitting Respiration 16 Intake Visit Reasons: ER F/U- INGUINAL HERNIA Chief Complaint: [facility] Insurance Premium Auditor Required: No Is patient in pain?: Yes (left groin) Pain scale (1-10): 2 Allergies Penicillins Allergy (Verified 04/11/25 14:07) Unknown Medications ?Medication ?Instructions ?Recorded ?Confirmed ?Type atorvastatin 10 mg tablet (Lipitor) 10 mg PO DAILY 05/29/19 04/11/25 History ferrous sulfate 325 mg (65 mg 325 mg PO DAILY 03/31/21 04/11/25 Histor y iron) tablet ascorbic acid (vitamin C) 500 mg 500 mg PO DAILY 08/27/23 04/11/25 Histor y tablet multivitamin 1 tab PO DAILY 08/27/23 04/11/25 History ketoconazole 2 % shampoo 1 applic topical .Q3x/w PRN 02/28/24 History Have you fallen in the past year?: No PFSH Medical History Anemia Pure hypercholesterolemia Shingles Foreign body in left ear, initial encounter Blood in stool Stomach ulcer Hemorrhoids Surgical History History of left heart catheterization (LHC) (~04/09/21) History of hand surgery History of hemorrhoidectomy Family History Brother Hypertension Mixed hyperlipidemiaGrandfather Myocardial infarctionFather Cancer Lung DiabetesMother Hypertension Mixed hyperlipidemiaBrother Myocardial infarction, Onset Age: 50 Social History Smoking Status: Never smoker alcohol intake: current alcohol intake frequency: a few times a week substance use type: does not use caffeine: Yes Type: coffee Number of servings: 2 HPI HPI HPI: 69-year-old male presents status post follow-up from ER due to left inguinal hernia. Patient states on Wednesday he was splitting logs on Wednesday noticed a bulge as well as pain in the left groin. Patient was seen at the ER on Wednesday. This was able to be reduced with conscious sedation by the ER physician. CT of pelvis was done prior showed some edema at the area but no bowel in the hernia. Patient was also noted to have umbilical hernia. Patient was able to be discharged home after was reduced. Patient states that he did notice a bulge again in the morning however the pain has been improved since he left the ER compared to when he went in. Patient's been tolerating diet and having bowel function. Does state that he has some discomfort with urinating at the area of the hernia. Patient does have resolving ecchymosis from reducing of the hernia. ROS General General: No weight change, appetite, fatigue, colon cancer or breast cancer HEENT HEENT: No difficulty swallowing, eye injury, eye surgery, swollen glands or hoarseness Endo Endocrine: No thyroid disease, diabetes mellitus, thyroid cancer, Hair loss, heat intolerance or cold intolerance Skin Skin: No rash or changing moles Musc Musculoskeletal: No back problems, arthritis, rheumatoid arthritis, gout or joint pain Cardio Cardiovascular: No murmur, pacemaker, heart disease, atrial fibrillation, high blood pressure, heart attack, heart stent, palpitations, shortness of breath with exertion or chest pain Psych Psychiatric: No depression, anxiety or hearing voices Resp Respiratory: No shortness of breath, No sleep apnea, No cough, No COPD, No asthma, No emphysema and No wheezing Gastro Gastrointestinal: No abdominal pain, No nausea or vomiting, No diarrhea, No constipation, No blood in stool, No acid reflux, Yes hemorrhoids, No ulcers, No gallbladder problem and No black,tarry stools Les Hematologic: No blood thinners, No blood disorders, No bleeding, Yes anemia and No blood clots Neuro Neurologic: No numbness and No tingling Exam Const General: cooperative, healthy appearing, comfortable and no acute distress HENMT Head: normocephalic and atraumatic Neck Neck: supple Resp Effort & Inspection: normal respiratory effort Cardio Rate: regular rate GI Inspection: non-distended Palpation: soft, hernia indirect inguinal (Left-incarcerated) and umbilical (Incarcerated) and nontender Skin General: no rashes or lesions noted Neuro General: CN's II-XI intact bilaterally Extrem General: normal to inspection Psych Mental Status: mental status grossly normal Attitude: cooperative Assessment and Plan Assessment and Plan (1) Indirect left inguinal hernia: Status: Acute (2) Incarcerated umbilical hernia: Status: Acute Plan Plan to do robotic left inguinal hernia repair with mesh, possible bilateral, umbilical hernia repair with mesh. Reviewed the procedure with the patient including the risks, including but not limited to infection, bleeding, paresthesia, chronic pain, injury to small bowel or contents of the spermatic cord, and recurrence. All questions were answered. Irene Wilkinson M.D. Pager: [phone] [facility] [address] [place] [address], [address] [place] [id number] Office: [phone] Coding Level of Care Code Off vis,new,level 3 Diagnoses Indirect left inguinal hernia K40.90 Incarcerated umbilical hernia K42.0 Clinical Quality Measures Falls Risk Screening/Assistive Devices Have you fallen in the past year?: No 04/11/25 5573 <Electronically signed by Irene Wilkinson MD> Date Irene Wilkinson MD
[2025-04-13] MEDS: Lactated Ringers 1,000 ML 15 ML IV (12:06)
--- NOTE | 2025-04-13 12:48 | PCM.PRE.AN2 ---
ASA Classification* ASA Classification ASA Classification: 3 Assessment & Plan Anesthesia* Anesthesia Assessment Anesthesia Assessment: Discussed sedation and/or anesthesia options, risks, benefits, and alternatives with patient/parents/legal guardian/POA. Questions invited. The patient/parents/legal guardian/POA seems to understand and agrees to proceed with anesthesia plan. Reviewed the physical assessment, medical history, allergy history and patient home medications list prior to surgery/procedure/anesthetic and documented any changes. Performed airway and anesthesia risk assessments. Anesthesia Type Anesthesia Type: General History Source History Obtained from:: Patient and Chart Anesthesia Focused Assessment* Temperature: 97.6 F Pulse Rate: 40 Blood Pressure: 159/81 Respiratory Rate: 16 Pulse Ox: 100 Oxygen Delivery Method: Room Air Airway Assessment Mouth opens: >3 cm Mallampati Score: I Teeth Condition: Upper (Patient has a permanent upper bridge.) Neck Range of motion (ROM): Full ROM Labs Anesthesia Preop lab: CBC WBC 6.3 K/mm3 (4.4-11.0) 04/07/25 20:38 04/07/25 RBC 4.66 M/mm3 (4.6-6.2) 04/07/25 20:38 04/07/25 Hgb 14.7 g/dL (13.0-16.5) 04/07/25 20:38 04/07/25 Hct 42.3 % (40-54) 04/07/25 20:38 04/07/25 Plt Count 160 K/mm3 (150-450) 04/07/25 20:38 04/07/25 CHEMISTRY Potassium 4.1 mmol/L (3.3-5.1) 04/07/25 20:38 04/07/25 Sodium 141 mmol/L (133-145) 04/07/25 20:38 04/07/25 BUN 17 mg/dL (4-19) 04/07/25 20:38 04/07/25 Creatinine 1.15 mg/dL (0.70-1.20) 04/07/25 20:38 04/07/25 Glucose 103 mg/dL (70-99) H 04/07/25 20:38 04/07/25 COAG PT 13.4 SECONDS (11.7-14.9) 04/07/25 20:38 04/07/25 Pre-Assessment Diagnosis/Proposed Procedure Planned Operative Procedure(s): LAP ROBOTIC INGUINAL HERNIA REPAIR WITH MESH LEFT AND UMBILICAL HERNIA Anesthesia History 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 When Was Last Pacemaker Check QUESTION #4 FULL TEXT: You/Your Family Experience fever (hyperthermia) with Anesthesia Last Oral Intake Last Oral intake: Last Oral Intake NPO since 06:30 04/13/25 11:52 Meds taken in AM with sips of No 04/13/25 11:52 water? Meds patient instructed to take am of surgery Any additional information?: Yes NPO since: 06:30 (Black coffee at 6:30 AM.) Meds taken in AM with sips of water?: No PONV PONV - dietary worker: PONV - dietary worker Female No 04/12/25 08:29 HX of Motion Sickness No 04/12/25 08:29 HX of N/V After Surgery No 04/12/25 08:29 Non-Smoker Yes 04/12/25 08:29 Duration of Surgery greater Yes 04/12/25 08:29 than 60 minutes Number of Risk Factors 2 04/12/25 08:29 PONV Score Moderate Risk 04/12/25 08:29 Height & Weight Height & Weight: Anesthesia: Height & Weight Height 5 ft 10 in 04/13/25 11:52 Weight: 75 kg 04/13/25 11:52 Body Mass Index (BMI) 23.7 04/13/25 11:52 Respiratory Assessment Respiratory Assessment - dietary worker: Respiratory Tract Infection Hx - dietary worker Hx Respiratory Tract Infection No 04/12/25 08:29 STOP Sleep Apnea STOP Sleep Apnea - dietary worker: STOP Sleep Apnea - dietary worker Hx Hypertension No 04/12/25 08:29 Hx Sleep Apnea No 04/12/25 08:29 CPAP BIPAP Do you snore loudly (louder No 04/12/25 08:29 than talking or can be heard Do you often feel tired/ No 04/12/25 08:29 fatigued/ sleepy during daytime? Has anyone observed you stop No 04/12/25 08:29 breathing during sleep? STOP Results Negative 04/12/25 08:29 QUESTION #5 FULL TEXT : Do you snore loudly (louder than talking or can be heard through closed doors)? 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 Specify any problems Hx of Preganancy in last 3 N/A 04/12/25 08:29 Months Nurse Filling Out Transfusion DSCHRIBER 04/12/25 08:29 & Questions: Date: 04/12/25 04/12/25 08:29 Time: 08:30 04/12/25 08:29 Patient unable to answer at this time (ie. confused, unrespo /Reproduction History /Reproductive History - dietary worker: /Reproductive Hx- dietary worker Hx Now No 04/12/25 08:29 Gestational Age (in weeks): EDC: Hx Hx Para Hx Section SAB No 04/12/25 08:29 Active Medications Active Medications: Current Medications Generic Name Dose Route Start Last Admin Trade Name Freq PRN Reason Stop Dose Admin Clindamycin Phosphate 900 mg in 50 mls @ 75 mls/hr 04/13/25 13:00 Cleocin IV 04/13/25 13:39 INTRAOP ONE Lactated Ringer's 1,000 mls @ 15 mls/hr 04/13/25 11:30 04/13/25 12:06 IV 15 mls/hr .Q48H NICHO Administration PFSH Medical History Tinnitus of both ears Wears hearing aid Wears glasses Alcohol use Low iron High cholesterol History of ulceration Heartburn Non-smoker History of stress test Normal Holter exam History of echocardiogram Bradycardia Cardiology follow-up encounter Anemia Pure hypercholesterolemia Foreign body in left ear, initial encounter Home Medications ?Medication ?Instructions ?Recorded ?Last Taken ?Type atorvastatin 10 mg tablet (Lipitor) 10 mg PO DAILY 05/29/19 Unknown History ferrous sulfate 325 mg (65 mg 325 mg PO DAILY 03/31/21 Unknown History iron) tablet ascorbic acid (vitamin C) 500 mg 500 mg PO DAILY 08/27/23 Unknown History tablet multivitamin 1 tab PO DAILY 08/27/23 Unknown History ketoconazole 2 % shampoo 1 applic topical .Q3x/w PRN skin 02/28/24 Unknown History Allergy/AdvReac Type Severity Reaction Status Date / Time Penicillins Allergy Unknown Verified 04/13/25 11:38 Family History Brother Hypertension Mixed hyperlipidemia Grandfather Myocardial infarction Father Cancer Lung Diabetes Mother Hypertension Mixed hyperlipidemia Brother Myocardial infarction, Onset Age: 50 Surgical History Hx of colonoscopy Hx of prostate biopsy History of left heart catheterization (LHC) (~04/09/21) History of hand surgery History of hemorrhoidectomy Social History Smoking Status: Never smoker alcohol intake: current alcohol intake frequency: a few times a week substance use type: does not use caffeine: Yes Type: coffee Number of servings: 2 Review of Systems (Anesthesia) ROS Narrative System reviewed and no additional complaints, except as documented.
--- NOTE | 2025-04-13 13:00 | HERN_PTH ---
PATIENT: SRAAI FERGUSON [place] [facility] [id number] AGE/SX: 69/M ROOM: RE04/13/[address]: Dr. Irene Wilkinson MD : 1955 BED: DIS: 04/13/2025 SPEC #: [id number] RECD: 04/13/25 17:38 STATUS: JUANY REQ #: [id number] BUDDY: 04/13/25 13:[address]: Irene Wilkinson DEPT: SURGICAL PATHOLOGY RECD BY: Nirav Jefferson ENTERED: 04/16/25 09:39 SP TYPE: Hernia OTHR DR: Dr. Maury Booth MD Tissues: A - HERNIA B - HERNIA Procedures: Surgery Specimen Level II HEADER OPERATION: Laparoscopic robotic femoral hernia with mesh and umbilical hernia PRE-OP DIAGNOSIS: Indirect left inguinal hernia, incarcerated umbilical hernia TISSUE SUBMITTED: A- Incarcerated umbilical hernia sac, B- Incarcerated femoral hernia sac MICROSCOPIC DIAGNOSIS A. Hernia, umbilical, incarcerated umbilical hernia, excision: - Fibroadipose tissue partially covered by an attenuated mesothelium, consistent with hernia sac. B. Hernia, femoral, incarcerated femoral hernia, excision: - Fibroadipose tissue partially covered by an attenuated mesothelium, inflamed, consistent with hernia sac. MICROSCOPIC DESCRIPTION Slides are reviewed. GROSS DESCRIPTION Received in 2 formalin containers labeled with the patient's name and date of . Designated as: A. Incarcerated umbilical sac is a 3.5 x 1.7 x 1.5 cm irregular, osborn-pink to yellow tissue fragment. Sectioning reveals focally congested and fatty cut surfaces. Forest Aide sections are submitted in 1 cassette. B. Incarcerated femoral hernia sac are 3 irregular, osborn-pink to yellow tissue fragments, 2.5 x 1.9 x 1.2 cm to 5.0 x 5.0 x 2.1 cm. Sectioning reveals osborn-yellow focally congested cut surfaces; the largest tissue fragment has a 3.9 x 2.5 cm possible abscess cavity lined by red-brown, apparent semimembranous tissue and clotted blood. Forest Aide sections, to include the possible abscess cavity are submitted in 1 cassette. [place] 04/16/2025 CPT:14394m5
[2025-04-13] MEDS: Clindamycin 900 MG/50 ML BAG 75 MG IV (14:48)
--- NOTE | 2025-04-13 16:51 | PCM.OPRPT ---
Operative Report (Standard) Operative Information Date of Procedure: 04/13/25 Pre-Operative Diagnosis: Incarcerated left inguinal hernia, incarcerated umbilical hernia Post-Operative Diagnosis: Incarcerated left femoral hernia, incarcerated umbilical hernia Surgery/Procedure Performed: Robotic laparoscopic assisted converted to open incarcerated left femoral hernia repair with mesh, open umbilical hernia repair with mesh nutritionists: Yes Mobile Crane Operator: Khoa Hanson Tasks completed by criminal legal assistant: Opening & closing and Retracting Type of Anesthesia: General/Supplemental RN Documented Start/Stop Times: Operation Date: 04/13/25 13:00 Case Time Into Pre-Op 04/13/25 11:25 Out of Pre-Op 04/13/25 14:41 Anesthesia Start 04/13/25 14:48 Into Room 04/13/25 14:48 Procedure Start 04/13/25 15:08 Procedure End 04/13/25 17:18 Anesthesia End 04/13/25 17:20 Out of Room 04/13/25 17:20 Into Recovery 04/13/25 17:26 Into Phase II Recovery 04/13/25 18:16 Out of Recovery 04/13/25 18:16 Out of Phase II 04/13/25 19:05 Procedure Start Time: 15:08 Procedure Stop Time: 17:18 Select all DRAINS/GRAFTS/IMPLANTS that apply: Implanted device Implanted device details: Ventralex ST hernia patch 4.3 cm at the umbilicus LOT [id number], Ethicon ultra Pro mesh rolled into a cylinder and placed in the left femoral canal lot [id number] Special Medications: Clindamyacin 900 mg IV x 1 Estimated Blood Loss: 20 cc Specimen collected: Yes Description of specimen(s) removed: Incarcerated left femoral hernia contents, incarcerated umbilical hernia contents Description of surgery: Indications: 69-year-old male presented with incarcerated left groin hernia and umbilical which was symptomatic. Robotic left inguinal hernia repair with mesh, open umbilical hernia repair with mesh was elected patient was agreeable. Description of procedure: Patient was brought to operating room placed supine operative table. Timeout was completed verifying correct patient, procedure, site, positioning, special, prior to beginning procedure. General anesthesia was induced. Patient's arms were tucked and padded appropriately. Visiport was used to make the incision at Oleary's point in the left upper quadrant. Entry into the abdomen was confirmed visually. Laparoscope was placed. Verifying no injury during initial trocar placement. Patient was placed in Trendelenburg position. Two 8 mm trochars were placed along the horizontal line in the midline and in the right upper quadrant. The initial 5 mm trocar was upsized to an 8 mm well under direct visualization. Both the inguinal regions were inspected and an incarcerated left femoral hernia was seen no inguinal hernias are seen bilaterally. Robot was docked. The median umbilical ligament was divided sharply with electrocautery. Peritoneum was incised with the endoscopic scissors along a line 2 cm above the superior edge of the hernia defect extending from the median umbilical ligament to anterior superior iliac spine. Peritoneal flap was mobilized inferiorly using blunt and sharp dissection. Femoral hernia was unable to be reduced laparoscopically even with external pressure. The peritoneal flap was closed over mesh and secured with 3-0 V-Loc suture. After ensuring adequate hemostasis, the trochars were removed and pneumoperitoneum allowed to escape. An incision was marked in the natural skin crease and planned in the near the pubic tubercle. A field block was produced by raising skin wheals along the proposed incision in a skin wound was raised about 1 cm medial to the anterior superior iliac spine using 0.5% Marcaine for a total of 10 mL. Skin incision was made with the knife and deepened through the Candido and Camper's fascia with electrocautery until the aponeurosis of the external oblique was a identified. Incarcerated left femoral hernia that was seen this was unable to be reduced, electrocautery was used to divide. Ethicon UltraPro mesh was cut to size and rolled into a cylinder secured with 3-0 silk. This was placed into the femoral canal secured circumstantially with interrupted 3-0 silk sutures. Hemostasis was again checked. Area was irrigated with saline. Candido's fascia was closed with interrupted sutures of 3-0 Vicryl. Skin was closed running subcuticular suture of 4-0 Monocryl with Steri-Strips gauze and Tegaderm. Previous port sites were also closed with 4-0 Monocryl. Attention turned to the umbilical hernia. A curvilinear incision was made below the umbilicus with a 15 blade scalpel. This was deepened with electrocautery. A hemostat was used to go around the stalk of the umbilicus and Metzenbaum scissors was used to carefully divide the hernia sac from the skin of the umbilicus. The fascia around the hernia defect was cleared and the hernia defect measured 1.2 cm x 1.[address] hernia patch 4.3 cm was selected. This was secured laterally at its tails with 0 Nurolon horizontal mattress suture. The hernia defect was closed with a [id number] 0 Nurolon. The wound was irrigated with saline. Hemostasis was assured. The skin of the umbilicus was secured to the fascia using 3-0 Vicryl suture interrupted. The incision was closed with 3-0 Vicryl subdermal interrupted sutures and the skin was closed with interrupted 4-0 Monocryl sutures. Steri-Strips and Tegaderm and OpSite were placed over the incision once sterile cotton balls were placed in the umbilicus. Patient was extubated. The testes was gently pulled down to the anatomical position the scrotum. Patient tolerated procedure well and was taken to the postanesthesia care unit in stable condition. Surgical Findings: Incarcerated left femoral hernia, incarcerated medical hernia Complications Complications: No
--- NOTE | 2025-04-13 16:59 | DCINST_ITS ---
Discharge Instructions Diet Discharge Diet: Light diet - advance as tolerated Activity May shower in (days): 5 (Keep umbilical dressing clean dry and intact for 5 days. Okay to tape off with a Ziploc bag to shower. Or lower shower and upper sponge bath.) Lifting Restrictions: no lifting >20 lbs x 2 wks, no strenuous exercise for 4 wks Additional Activity Instructions:: - Dressing / Incision Call your doctor if your incision/area has: Continuous Slow Oozing, Sudden Increased Bleeding, Increased Pain/ Swelling, Increased Redness, Foul Smelling Discharge and Swelling at the incision site Call your doctor if you observe: Fever of 101 or Higher Remove Dressing in: 5 days (After 5 days okay to remove surgical dressing. Place cotton ball or rolled up gauze in bellybutton and retape daily for 2 more days.) Cleanse incision/area with: Do not get Incision Wet (for 5 days) Additional Dressing/Incision Instructions:: Steri-Strips will fall off in 7 to 10 days, if they do not fall off okay to remove after 10 days. Follow Up Care Please Follow Up With: Irene Wilkinson MD When: Call the office for a follow-up appointment 2 weeks; after 5 PM and on the weekends call [phone] with any concerns. Test Results: Test results from this visit will be discussed in further detail at your follow- up appointment, if applicable. Discharge Plan Admission Attending Provider: Irene Wilkinson Primary Care Provider: Maury Booth Instructions Print Language: Djib[place]ian Discharge Orders/Prescriptions Prescriptions: New oxycodone 5 mg capsule 5 mg PO Q6H PRN (Reason: pain) 3 Days Qty: 10 0RF Continued atorvastatin [Lipitor] 10 mg tablet 10 mg PO DAILY ascorbic acid (vitamin C) 500 mg tablet 500 mg PO DAILY multivitamin Tablet 1 tab PO DAILY ketoconazole 2 % shampoo 1 applic topical .Q3x/w PRN (Reason: skin) Patient Comments: APPLY ONE APPLICATION TO FACE 3 TIMES A WEEK ferrous sulfate 325 mg (65 mg iron) tablet 325 mg PO DAILY Referrals / Follow Up: Maury Booth MD [Primary Care Provider] - Disposition Disposition (needs filled in before D/C Order can be placed): Home, Self Care
[2025-04-13] MEDS: Bupivacaine Mpf 0.5% 30 ML VIAL (17:11)
--- NOTE | 2025-04-13 17:30 | PCM.POST.ANE ---
Anesthesia: Postop Eval I Current Vital Signs Temperature: 36 F Pulse Rate: 64 Blood Pressure: 141/77 Respiratory Rate: 14 Pulse Ox: 97 Assessment Airway patent: Yes Spontaneous unlabored respirations: Yes nausea: No Vomiting: No Anesthesia Complication: No Fluid Hydration Crystalloid volume administer (ml): 1,500 Total IV fluid infused: 1,500 Progress Note Anesthesia document: Postop Eval 1 completed: Yes
--- NOTE | 2025-04-16 10:33 | POSTOPAN2_ITS ---
Anesthesia Postop Eval I Sum Postop Eval Completion status Anesthesia document: Postop Eval 1 completed: Yes Anesthesia Postop Eval I Summary Anesthesia Postop Eval I Summary: Anesthesia Postop Eval I: Assessment Summary Airway patent Yes 04/13/25 17:30 [email or web address] Spontaneous unlabored Yes 04/13/25 17:30 [email or web address] respirations Mental status nausea No 04/13/25 17:30 [email or web address] Vomiting No 04/13/25 17:30 [email or web address] Anesthesia Postop Eval I: Fluid Summary Crystalloid volume administer 1,500 04/13/25 17:30 [email or web address] (ml) Colloids volume administered ( ml) Blood Product volume administered (ml) Total IV fluid infused 1,500 04/13/25 17:30 [email or web address] Anesthesia Postop Eval I: Summary Notes Anesthesia Complication No 04/13/25 17:30 [email or web address] Anesthesia Complication Comment: Post-operative progress note Anesthesia: Postop Eval II Evaluation Mental status: Awake and Calm Pain Level: 2 nausea: No Vomiting: No Complications Anesthesia Complication: No
--- NOTE | 2025-04-16 10:33 | PCM.POSTANE2 ---
Anesthesia Postop Eval I Sum Postop Eval Completion status Anesthesia document: Postop Eval 1 completed: Yes Anesthesia Postop Eval I Summary Anesthesia Postop Eval I Summary: Anesthesia Postop Eval I: Assessment Summary Airway patent Yes 04/13/25 17:30 ATHLETIC EVENTS [email or web address] Spontaneous unlabored Yes 04/13/25 17:30 ATHLETIC EVENTS [email or web address] respirations Mental status nausea No 04/13/25 17:30 ATHLETIC EVENTS [email or web address] Vomiting No 04/13/25 17:30 ATHLETIC EVENTS [email or web address] Anesthesia Postop Eval I: Fluid Summary Crystalloid volume administer 1,500 04/13/25 17:30 ATHLETIC EVENTS [email or web address] (ml) Colloids volume administered ( ml) Blood Product volume administered (ml) Total IV fluid infused 1,500 04/13/25 17:30 ATHLETIC EVENTS [email or web address] Anesthesia Postop Eval I: Summary Notes Anesthesia Complication No 04/13/25 17:30 ATHLETIC EVENTS [email or web address] Anesthesia Complication Comment: Post-operative progress note Anesthesia: Postop Eval II Evaluation Mental status: Awake and Calm Pain Level: 2 nausea: No Vomiting: No Complications Anesthesia Complication: No
== END 2025-04-13 19:05 | disposition home or self-care (01) ==
LOC: SDC 11:21 → AC 11:22
PROVIDERS: PCP Family Medicine; Referring Provider Surgery; Visit Provider Surgery
PROC: 0YQ64ZZ Repair Left Inguinal Region, Percutaneous Endoscopic Approach (ICD-10-PCS; CPT 49553; principal; 2025-04-13 12:40)
DX: K41.30 Unilateral femoral hernia, with obstruction, without gangrene, not specified as recurrent (principal); K42.0 Umbilical hernia with obstruction, without gangrene; E78.00 Pure hypercholesterolemia, unspecified; Z79.899 Other long term (current) drug therapy; Z53.31 Laparoscopic surgical procedure converted to open procedure
CPT/HCPCS: 49553; 49592; S2900; 00830; 88302; 93005; C1781; J2405

== ENCOUNTER 2025-08-14 09:16 | Day surgery (SDC) | payer MEDICARE, SELFPAY ==
--- NOTE | 2025-07-26 10:24 | PAT.ANESEVAL ---
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 When Was Last Pacemaker Check QUESTION #4 FULL TEXT: You/Your Family Experience fever (hyperthermia) with Anesthesia Last Oral Intake Last Oral intake: Last Oral Intake NPO since Meds taken in AM with sips of water? 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: PONV - restaurant managing partner Female No 07/26/25 09:21 HX of Motion Sickness No 07/26/25 09:21 HX of N/V After Surgery No 07/26/25 09:21 Non-Smoker Yes 07/26/25 09:21 Duration of Surgery greater Yes 07/26/25 09:21 than 60 minutes Number of Risk Factors 2 07/26/25 09:21 PONV Score Moderate Risk 07/26/25 09:21 Height & Weight Height & Weight: Anesthesia: Height & Weight Height 5 ft 10 in 07/18/25 13:52 Respiratory Assessment Respiratory Assessment - restaurant managing partner: Respiratory Tract Infection Hx - restaurant managing partner Hx Respiratory Tract Infection No 07/26/25 09:21 STOP Sleep Apnea STOP Sleep Apnea - restaurant managing partner: STOP Sleep Apnea - restaurant managing partner Hx Hypertension No 07/26/25 09:21 Hx Sleep Apnea No 07/26/25 09:21 CPAP BIPAP Do you snore loudly (louder Yes 07/26/25 09:21 than talking or can be heard Do you often feel tired/ No 07/26/25 09:21 fatigued/ sleepy during daytime? Has anyone observed you stop No 07/26/25 09:21 breathing during sleep? STOP Results Negative 07/26/25 09:21 QUESTION #5 FULL TEXT : Do you snore loudly (louder than talking or can be heard through closed doors)? 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 Specify any problems Hx of Preganancy in last 3 N/A 07/26/25 09:21 Months Nurse Filling Out Transfusion [email or web address] 07/26/25 09:21 & Questions: Date: 07/26/25 07/26/25 09:21 Time: :24 07/26/25 09:21 Patient unable to answer at this time (ie. confused, unrespo /Reproduction History /Reproductive History - restaurant managing partner: /Reproductive Hx- restaurant managing partner Hx Now No 07/26/25 09:21 Gestational Age (in weeks): EDC: Hx Hx Para Hx Section SAB No 04/12/25 08:29 [facility] Medical History (Updated 07/26/25 @ 09:28 by Jennyfer Vargas) Tinnitus of both ears Wears hearing aid Wears glasses Alcohol use Low iron High cholesterol History of ulceration Heartburn Non-smoker History of stress test Normal Holter exam History of echocardiogram Bradycardia Cardiology follow-up encounter Anemia Pure hypercholesterolemia Foreign body in left ear, initial encounter Home Medications ?Medication ?Instructions ?Recorded ?Last Taken ?Type atorvastatin 10 mg tablet (Lipitor) 10 mg PO QHS 05/29/19 Unknown History ferrous sulfate 325 mg (65 mg 325 mg PO DAILY 03/31/21 Unknown History iron) tablet ascorbic acid (vitamin C) 500 mg 500 mg PO DAILY 08/27/23 Unknown History tablet multivitamin 1 tab PO DAILY 08/27/23 Unknown History ketoconazole 2 % shampoo 1 applic topical .Q3x/w PRN skin 02/28/24 Unknown History Hydrocortisone 2.5%/lidocaine 5% #30 ea 04/26/25 Unknown Rx suppository (cmpd) (hydrocortisone 2.5%/lidocaine 5% suppository (compound)) hydrocortisone 2.5 % topical cream 1 applic [place] BID-QID PRN 07/18/25 Unknown Rx with perineal applicator hemorrhoids #30 grams (Proctozone-HC) psyllium husk 3.4 gram/5.4 gram 1 tbsp PO QDAY 07/18/25 Unknown History oral powder (Metamucil) Allergy/AdvReac Type Severity Reaction Status Date / Time Penicillins Allergy Unknown Verified 07/26/25 09:18 Family History Brother Hypertension Mixed hyperlipidemia Grandfather Myocardial infarction Father Cancer Lung Diabetes Mother Hypertension Mixed hyperlipidemia Brother Myocardial infarction, Onset Age: 50 Surgical History S/P hernia repair Hx of colonoscopy Hx of prostate biopsy History of left heart catheterization (LHC) (~04/09/21) History of hand surgery History of hemorrhoidectomy Social History Smoking Status: Never smoker alcohol intake: current alcohol intake frequency: a few times a week substance use type: does not use caffeine: Yes Type: coffee Number of servings: 2 Audit: Pertinent Findings Pertinent Findings EKG Perinent findings: 04/12/2025. Marked sinus bradycardia 47 bpm. Nonspecific T wave abnormality. Echo (EF%) pertinent findings: 03/25/2021. EF 65%. Pulmonary artery pressure 28. Consult pertinent findings: Cardiology 11/02/2024. High cholesterol. Chronic. Continue current medical therapy. Recommendation Anesthesia Recommendation Anesthesia recommendation: OPTIMIZED for anesthesia
[2025-08-14] VITALS (8 sets, daily range): BP systolic 119–169; BP diastolic 72–87; PULSE 48–62; RESP 14–18; TEMP 36.1–36.8; O2SAT 93–100; BMI 23.7
[2025-08-14] MEDS: Lactated Ringers 1,000 ML 15 ML IV (09:57)
--- NOTE | 2025-08-14 10:17 | PCM.PRE.AN2 ---
ASA Classification* ASA Classification ASA Classification: 2 Assessment & Plan Anesthesia* Anesthesia Assessment Anesthesia Assessment: Discussed sedation and/or anesthesia options, risks, benefits, and alternatives with patient/parents/legal guardian/POA. Questions invited. The patient/parents/legal guardian/POA seems to understand and agrees to proceed with anesthesia plan. Reviewed the physical assessment, medical history, allergy history and patient home medications list prior to surgery/procedure/anesthetic and documented any changes. Performed airway and anesthesia risk assessments. Anesthesia Type Anesthesia Type: General and MAC History Source History Obtained from:: Patient and Chart Anesthesia Focused Assessment* Temperature: 97.9 F Pulse Rate: 50 Blood Pressure: 169/87 Respiratory Rate: 18 Pulse Ox: 100 Oxygen Delivery Method: Room Air Airway Assessment Mouth opens: >3 cm Mallampati Score: II Teeth Condition: Caps/Crowns Neck Range of motion (ROM): Full ROM Labs Anesthesia Preop lab: CBC WBC, (4.4-11.0) 6.3 K/mm3 04/07/25, 20:38 RBC, (4.6-6.2) 4.66 M/mm3 04/07/25, 20:38 Hgb, (13.0-16.5) 14.7 g/dL 04/07/25, 20:38 Hct, (40-54) 42.3 % 04/07/25, 20:38 Plt Count, (150-450) 160 K/mm3 04/07/25, 20:38 CHEMISTRY Potassium, (3.3-5.1) 4.1 mmol/L 04/07/25, 20:38 Sodium, (133-145) 141 mmol/L 04/07/25, 20:38 BUN, (4-19) 17 mg/dL 04/07/25, 20:38 Creatinine, (0.70-1.20) 1.15 mg/dL 04/07/25, 20:38 Glucose, (70-99) 103 mg/dL H 04/07/25, 20:38 COAG PT, (11.7-14.9) 13.4 SECONDS 04/07/25, 20:38 Pre-Assessment Diagnosis/Proposed Procedure Planned Operative Procedure(s): HEMORRHOIDECTOMY Anesthesia History 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 When Was Last Pacemaker Check QUESTION #4 FULL TEXT: You/Your Family Experience fever (hyperthermia) with Anesthesia Last Oral Intake Last Oral intake: Last Oral Intake NPO since 16:00 08/14/25 09:49 Meds taken in AM with sips of No 08/14/25 09:49 water? Meds patient instructed to take am of surgery PONV PONV - railway signal electrician: PONV - railway signal electrician Female No 07/26/25 09:21 HX of Motion Sickness No 07/26/25 09:21 HX of N/V After Surgery No 07/26/25 09:21 Non-Smoker Yes 07/26/25 09:21 Duration of Surgery greater Yes 07/26/25 09:21 than 60 minutes Number of Risk Factors 2 07/26/25 09:21 PONV Score Moderate Risk 07/26/25 09:21 Height & Weight Height & Weight: Anesthesia: Height & Weight Height 5 ft 10 in 08/14/25 09:49 Weight: 75 kg 08/14/25 09:49 Body Mass Index (BMI) 23.7 08/14/25 09:49 Respiratory Assessment Respiratory Assessment - railway signal electrician: Respiratory Tract Infection Hx - railway signal electrician Hx Respiratory Tract Infection No 07/26/25 09:21 STOP Sleep Apnea STOP Sleep Apnea - railway signal electrician: STOP Sleep Apnea - railway signal electrician Hx Hypertension No 07/26/25 09:21 Hx Sleep Apnea No 07/26/25 09:21 CPAP BIPAP Do you snore loudly (louder Yes 07/26/25 09:21 than talking or can be heard Do you often feel tired/ No 07/26/25 09:21 fatigued/ sleepy during daytime? Has anyone observed you stop No 07/26/25 09:21 breathing during sleep? STOP Results Negative 07/26/25 09:21 QUESTION #5 FULL TEXT : Do you snore loudly (louder than talking or can be heard through closed doors)? 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 Specify any problems Hx of Preganancy in last 3 N/A 07/26/25 09:21 Months Nurse Filling Out Transfusion MGRIFFITH 07/26/25 09:21 & Questions: Date: 07/26/25 07/26/25 09:21 Time: :24 07/26/25 09:21 Patient unable to answer at this time (ie. 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: /Reproductive Hx- railway signal electrician Hx Now No 07/26/25 09:21 Gestational Age (in weeks): EDC: Hx Hx Para Hx Section SAB No 04/12/25 08:29 Active Medications Active Medications: Current Medications Generic Name Dose Route Start Last Admin Trade Name Freq PRN Reason Stop Dose Admin Lactated Ringer's 1,000 mls @ 15 mls/hr 08/14/25 09:30 08/14/25 09:57 IV 15 mls/hr .Q48H NICHO Administration PFSH Medical History Tinnitus of both ears Wears hearing aid Wears glasses Alcohol use Low iron High cholesterol History of ulceration Heartburn Non-smoker History of stress test Normal Holter exam History of echocardiogram Bradycardia Cardiology follow-up encounter Anemia Pure hypercholesterolemia Foreign body in left ear, initial encounter Home Medications ?Medication ?Instructions ?Recorded ?Last Taken ?Type atorvastatin 10 mg tablet (Lipitor) 10 mg PO QHS 05/29/19 08/12/25 History ferrous sulfate 325 mg (65 mg 325 mg PO DAILY 03/31/21 08/13/25 History iron) tablet ascorbic acid (vitamin C) 500 mg 500 mg PO DAILY 08/27/23 08/13/25 History tablet multivitamin 1 tab PO DAILY 08/27/23 08/13/25 History ketoconazole 2 % shampoo 1 applic topical .Q3x/w PRN skin 02/28/24 Unknown History Hydrocortisone 2.5%/lidocaine 5% #30 ea 04/26/25 Unknown Rx suppository (cmpd) (hydrocortisone 2.5%/lidocaine 5% suppository (compound)) hydrocortisone 2.5 % topical cream 1 applic [place] BID-QID PRN 07/18/25 Unknown Rx with perineal applicator hemorrhoids #30 grams (Proctozone-HC) psyllium husk 3.4 gram/5.4 gram 1 tbsp PO QDAY 07/18/25 08/13/25 History oral powder (Metamucil) Allergy/AdvReac Type Severity Reaction Status Date / Time Penicillins Allergy Unknown Verified 08/14/25 09:47 Family History Brother Hypertension Mixed hyperlipidemia Grandfather Myocardial infarction Father Cancer Lung Diabetes Mother Hypertension Mixed hyperlipidemia Brother Myocardial infarction, Onset Age: 50 Surgical History S/P hernia repair Hx of colonoscopy Hx of prostate biopsy History of left heart catheterization (LHC) (~04/09/21) History of hand surgery History of hemorrhoidectomy Social History Smoking Status: Never smoker alcohol intake: current alcohol intake frequency: a few times a week substance use type: does not use caffeine: Yes Type: coffee Number of servings: 2 Review of Systems (Anesthesia) ROS Narrative System reviewed and no additional complaints, except as documented.
--- NOTE | 2025-08-14 10:31 | HP.PCM_ITS ---
History and Physical
--- NOTE | 2025-08-14 10:31 | PCM.HP.BLA ---
History and Physical Date of Admission: 08/14/25 Date of Service: 07/18/25 MR#: [id number] Acct: [id number] Name: SARAI FERGUSON Rep #: [id number] : 1955 Provider: Dr. Irene Wilkinson MD Age/Sex: 69/M Location: [facility] Status: Signed Intake Vital Signs 04/13/2511:52 07/18/2513:52 Height 5 ft 10 in 5 ft 10 in Weight: 168 lb BMI 24.0 BP 127/70 H Blood Pressure Location Rt brachial Position Sitting Respiration 17 Pulse 61 Pulse Source Monitor Pulse Oximetry (%) 97 Oxygen Delivery Method room air Intake Visit Reasons: HEMORRHOIDS Chief Complaint: hemorrhoids Is patient in pain?: No Allergies Penicillins Allergy (Verified 07/18/25 13:53) Unknown Medications ?Medication ?Instructions ?Recorded ?Confirmed ?Type atorvastatin 10 mg tablet (Lipitor) 10 mg PO DAILY 05/29/19 07/18/25 History ferrous sulfate 325 mg (65 mg 325 mg PO DAILY 03/31/21 07/18/25 History iron) tablet ascorbic acid (vitamin C) 500 mg 500 mg PO DAILY 08/27/23 07/18/25 History tablet multivitamin 1 tab PO DAILY 08/27/23 07/18/25 History ketoconazole 2 % shampoo 1 applic topical .Q3x/w PRN skin 02/28/24 07/18/25 History Hydrocortisone 2.5%/lidocaine 5% #30 ea 04/26/25 07/18/25 Rx suppository (cmpd) (hydrocortisone 2.5%/lidocaine 5% suppository (compound)) hydrocortisone 2.5 % topical cream 1 applic IA BID-QID PRN 07/18/25 07/18/25 Rx with perineal applicator hemorrhoids #30 grams (Proctozone-HC) psyllium husk 3.4 gram/5.4 gram 1 tbsp PO QDAY 07/18/25 07/18/25 History oral powder (Metamucil) Have you fallen in the past year?: No PFSH Medical History (Updated 07/18/25 @ 13:52 by Janneth Ly) Tinnitus of both ears Wears hearing aid Wears glasses Alcohol use Low iron High cholesterol History of ulceration Heartburn Non-smoker History of stress test Normal Holter exam History of echocardiogram Bradycardia Cardiology follow-up encounter Anemia Pure hypercholesterolemia Foreign body in left ear, initial encounter Surgical History S/P hernia repair Hx of colonoscopy Hx of prostate biopsy History of left heart catheterization (LHC) (~04/09/21) History of hand surgery History of hemorrhoidectomy Family History Brother Hypertension Mixed hyperlipidemia Grandfather Myocardial infarction Father Cancer Lung Diabetes Mother Hypertension Mixed hyperlipidemia Brother Myocardial infarction, Onset Age: 50 Social History Smoking Status: Never smoker alcohol intake: current alcohol intake frequency: a few times a week substance use type: does not use caffeine: Yes Type: coffee Number of servings: 2 HPI HPI HPI: 69-year-old male presents due to hemorrhoids. Patient is also status post recent incarcerated left femoral hernia patient is doing well from surgery. Patient states that the cream suppositories have helped with the hemorrhoids but they are still bothersome. Patient states he has bowel movements daily denies any hard stools. Patient did have a colonoscopy last in [address] Méndez. Patient does give a history of having a stapled hemorrhoidectomy years ago was referred to someone by Dr. Méndez. Patient states that if he does have multiple bowel movements in 1 day it does get more painful and tender and states he can get up to a 7/10 and then be sore for the rest the day. If patient only has 1 bowel movement a day it is tolerable and not much discomfort. Patient has been using suppositories but has been trying to ration as he was getting low and did you do the [id number] in the morning and then the 2.5% hydrocortisone lidocaine once at night. Patient is planning to go to [place] [employer] [place] on [place]03 for about a week. Patient is interested in options for possible hemorrhoidectomy as he does not have the improvement he would have hoped with the medication. ROS General General: No weight change, appetite, fatigue, colon cancer or breast cancer HEENT HEENT: No difficulty swallowing, eye injury, eye surgery, swollen glands or hoarseness Endo Endocrine: No thyroid disease, diabetes mellitus, thyroid cancer, Hair loss, heat intolerance or cold intolerance Skin Skin: No rash or changing moles Musc Musculoskeletal: No back problems, arthritis, rheumatoid arthritis, gout or joint pain Cardio Cardiovascular: No murmur, pacemaker, heart disease, atrial fibrillation, high blood pressure, heart attack, heart stent, palpitations, shortness of breath with exertion or chest pain Psych Psychiatric: No depression, anxiety or hearing voices Resp Respiratory: No shortness of breath, No sleep apnea, No cough, No COPD, No asthma, No emphysema and No wheezing Gastro Gastrointestinal: No abdominal pain, No nausea or vomiting, No diarrhea, No constipation, No blood in stool, No acid reflux, Yes hemorrhoids, No ulcers, No gallbladder problem and No black,tarry stools Les Hematologic: No blood thinners, No blood disorders, No bleeding, Yes anemia and No blood clots Neuro Neurologic: No numbness and No tingling Exam Const General: cooperative, healthy appearing, comfortable and no acute distress HENMT Head: normocephalic and atraumatic Neck Neck: supple Resp Effort & Inspection: normal respiratory effort Cardio Rate: regular rate GI Inspection: non-distended Other: MARK ANTHONY deferred inspection grade 2-3 internal hemorrhoids at 5-7 o'clock, no gross bleeding, minimal external hemorrhoidal tissue. Skin General: no rashes or lesions noted Neuro General: CN's II-XI intact bilaterally Extrem General: normal to inspection Psych Mental Status: mental status grossly normal Attitude: cooperative Assessment and Plan Assessment and Plan (1) Internal hemorrhoids: Status: Acute Medications: Refilled hydrocortisone 2.5% (Proctozone-HC) Apply twice daily 1 applic IA BID-QID PRN 30 grams 2RF hemorrhoids Plan Will give patient refills of the hydrocortisone as well as the hydrocortisone/lidocaine suppositories so we will have enough for vacation. Patient will call let us know if he would like to proceed with hemorrhoidectomy he is aware that postop can be painful for several days recommend keeping the stool soft, sitz bath's, stool softeners. Discussed procedure including but not limited to risk of bleeding, infection, and anesthesia patient never questions time. Patient will call back and to schedule after he talks with his . Irene Wilkinson M.D. Pager: [phone] [facility] [address] [place] [address], [facility] [address] [place] [address] Office: [phone] Coding Level of Care Code Off vis,est,level 3 Diagnoses Internal hemorrhoids K64.8 Clinical Quality Measures Falls Risk Screening/Assistive Devices Have you fallen in the past year?: No 07/19/25 1207 <Electronically signed by Irene Wilkinson MD> Date Irene Wilkinson MD
--- NOTE | 2025-08-14 11:00 | HEM_PTH ---
PATIENT: SARAI FERGUSON LOC[place] [facility] [place] U#:[id number] AGE/SX: 69/M ROOM: RE08/14/[address]: Dr. Irene Wilkinson MD : 1955 BED: DIS: 08/14/2025 SPEC #: [id number] RECD: 08/14/25 13:31 STATUS: AMBAR AIYANA #: [id number] BUDDY: 08/14/25 11:[address]: Irene Wilkinson DEPT: SURGICAL PATHOLOGY RECD BY: Nirav Jefferson ENTERED: 08/14/25 13:51 SP TYPE: HEMORRHOID OTHR DR: Dr. Maury Booth MD Tissues: A - HEMORRHOIDS Procedures: Surgery Specimen Level III HEADER OPERATION: Hemorrhoidectomy PRE-OP DIAGNOSIS: Hemorrhoids TISSUE SUBMITTED: A- Hemorrhoid MICROSCOPIC DIAGNOSIS A. Hemorrhoids, hemorrhoidectomy: MICROSCOPIC DESCRIPTION Slides are reviewed. GROSS DESCRIPTION A. Received in formalin labeled with the patient's name and date of . Designated as hemorrhoid are 2 pink-red slightly wrinkled and heavily cauterized portions of rubbery tissue, 1.4 x 0.6 x 0.5 cm and 3.5 x 2.6 x 1.0 cm. Sectioning reveals pink-red, torturous and hemorrhagic cut surfaces. Motor Room Controller sections are submitted in 1 cassette. [place] 08/14/2025 CPT:50090
[2025-08-14] MEDS: BUPIVACAINE LIPOSOME/PF 20 ML VIAL OPERA.SITE (11:43)
--- NOTE | 2025-08-14 12:10 | OP.PCM_ITS ---
Operative Report (Standard)
--- NOTE | 2025-08-14 12:10 | PCM.OPRPT ---
Operative Report (Standard) Operative Information Date of Procedure: 08/14/25 Pre-Operative Diagnosis: Internal hemorrhoids Post-Operative Diagnosis: Same Surgery/Procedure Performed: Left lateral hemorrhoidectomy clinical team lead: Yes Filler Wiper: Yadira Campbell Tasks completed by recreational assistant: Opening & closing and Retracting Type of Anesthesia: General/Supplemental RN Documented Start/Stop Times: Operation Date: 08/14/25 11:00 Case Time Into Pre-Op 08/14/25 09:23 Out of Pre-Op 08/14/25 11:07 Anesthesia Start 08/14/25 11:11 Into Room 08/14/25 11:11 Procedure Start 08/14/25 11:43 Into Recovery 08/14/25 12:16 Procedure Start Time: 11:43 Procedure Stop Time: 12:07 Select all DRAINS/GRAFTS/IMPLANTS that apply: None Estimated Blood Loss: < 10 cc Specimen collected: Yes Description of specimen(s) removed: Hemorrhoid Description of surgery: The patient was brought into the operating room and general anesthesia was induced. He was placed in prone jackknife lithotomy position. A timeout was completed verifying correct patient, procedure, site, position, and special equipment prior to beginning the procedure. The buttocks were taped apart. Perineum was prepared prepped and draped in standard sterile fashion. Local anesthesia was injected as a perianal nerve block-Exparel a total of 20 cc used throughout the case. Anus carefully dilated. Small Hill-Jordan retractor was introduced and 3 marginal pedicles identified. He was noted to have internal and external hemorrhoids at the left lateral position. 2-0 Vicryl suture was placed at the base of the pedicles and retracted externally to exteriorize the hemorrhoidal pedicles. An elliptical incision was made extending from perianal skin to anal rectal ring including both internal and external hemorrhoids and excising a minimal amount of anoderm. Hand-held harmonic was used to separate the hemorrhoid from the underlying tissue. Careful not to involve any of the sphincter muscle. The pedicle was indicated from the base and sent to pathology. Hemostasis was achieved using electrocautery. Following the hemostasis the skin and mucosal incisions were closed with the running lock stitch of 2-0 chromic. A large Surgifoam with dibucaine was placed in the anus. A gauze pad tucked between the gluteal folds. The patient tolerated procedure well and was extubated and taken to the postanesthesia care unit in stable condition. Surgical Findings: See operative report Complications Complications: No
--- NOTE | 2025-08-14 12:13 | DCINST_ITS ---
Discharge Instructions
--- NOTE | 2025-08-14 12:13 | EX.PCM.DISCH ---
Discharge Instructions Procedure Rectal Surgery Diet Discharge Diet: No restrictions Activity Discharge Activity: Return to Normal Activity and May Not Drive (while you are taking narcotic pain medications. Do not drive, work with heavy equipment or sign legal documents for 24 hours after your surgery.) Additional Activity Instructions:: Be aware that pain medications may cause nausea. You should typically eat light foods as you take your pain medications. Dressing / Incision Additional Dressing/Incision Instructions:: If a local anesthetic plug was placed in the anal area, try not to expel for 24-[address] dibucaine ointment on the perianal area as needed. Sitz baths twice daily and after bowel movements. Follow Up Care Please Follow Up With: Irene Wilkinson MD When: Please call [phone] to schedule a follow up appointment to be seen 1-2 weeks after surgery. Test Results: Test results from this visit will be discussed in further detail at your follow-up appointment, if applicable. Discharge Plan Admission Attending Provider: Irene Wilkinson Primary Care Provider: Maury Booth Instructions Additional Instructions / Restrictions: Okay to take ibuprofen 400-600 mg PO q6hr PRN and Tylenol 650 to 1000 mg p.o. every 6 hours as needed along with the oxycodone. Take all pain meds with food. Oxycodone can cause constipation recommend taking daily stool softener (i.e. Colace/docusate) while taking the pain meds. Recommend starting some MiraLAX today and BID tomorrow if no bowel movement. If still no bowel movement the following day recommend taking additional MiraLAX versus magnesium citrate half the bottle and waiting 4-6 hours if still no results take the other half the bottle. Print Language: Turkish Discharge Orders/Prescriptions Prescriptions: New oxycodone 5 mg capsule 5 mg PO Q6H PRN (Reason: pain) 3 Days Qty: 14 0RF No Action atorvastatin [Lipitor] 10 mg tablet 10 mg PO QHS ascorbic acid (vitamin C) 500 mg tablet 500 mg PO DAILY multivitamin Tablet 1 tab PO DAILY ketoconazole 2 % shampoo 1 applic topical .Q3x/w PRN (Reason: skin) Patient Comments: APPLY ONE APPLICATION TO FACE 3 TIMES A WEEK (DME) hydrocortisone 2.5%/lidocaine 5% suppository (compound) Suppository See Rx Instructions .Route Qty: 30 2RF Rx Instructions: insert one suppository twice daily Metamucil 3.4 gram/5.4 gram powder 1 tbsp PO QDAY Rx Instructions: mix into at least 8 oz of water or juice before administering hydrocortisone [Proctozone-HC] 2.5 % cream with perineal applicator 1 applic RI BID-QID PRN (Reason: hemorrhoids) Qty: 30 2RF Rx Instructions: Apply twice daily ferrous sulfate 325 mg (65 mg iron) tablet 325 mg PO DAILY Referrals / Follow Up: Maury Booth MD [Primary Care Provider, Family Practice] Disposition Disposition (needs filled in before D/C Order can be placed): Home, Self Care
--- NOTE | 2025-08-14 12:29 | POSTOP.ANE_ITS ---
Anesthesia: Postop Eval I
--- NOTE | 2025-08-14 12:29 | PCM.POST.ANE ---
Anesthesia: Postop Eval I Current Vital Signs Temperature: 97 F Pulse Rate: 57 Blood Pressure: 135/72 Respiratory Rate: 14 Pulse Ox: 94 Oxygen Delivery Method: Room Air Assessment Airway patent: Yes Spontaneous unlabored respirations: Yes Mental status: Awake and Calm nausea: No Vomiting: No Anesthesia Complication: No Fluid Hydration Crystalloid volume administer (ml): 800 Total IV fluid infused: 800 Progress Note Anesthesia document: Postop Eval 1 completed: Yes
--- NOTE | 2025-08-14 14:58 | POSTOPAN2_ITS ---
Anesthesia Postop Eval I Sum
--- NOTE | 2025-08-14 14:58 | PCM.POSTANE2 ---
Anesthesia Postop Eval I Sum Postop Eval Completion status Anesthesia document: Postop Eval 1 completed: Yes Anesthesia Postop Eval I Summary Anesthesia Postop Eval I Summary: Anesthesia Postop Eval I: Assessment Summary Airway patent Yes 08/14/25 12:30 [email or web address] Spontaneous unlabored Yes 08/14/25 12:30 [email or web address] respirations Mental status Awake,Calm 08/14/25 12:30 [email or web address] nausea No 08/14/25 12:30 [email or web address] Vomiting No 08/14/25 12:30 [email or web address] Anesthesia Postop Eval I: Fluid Summary Crystalloid volume administer 800 08/14/25 12:30 [email or web address] (ml) Colloids volume administered ( ml) Blood Product volume administered (ml) Total IV fluid infused 800 08/14/25 12:30 [email or web address] Anesthesia Postop Eval I: Summary Notes Anesthesia Complication No 08/14/25 12:30 [email or web address] Anesthesia Complication Comment: Post-operative progress note Anesthesia: Postop Eval II Evaluation Mental status: Awake and Calm Pain Level: 1 nausea: No Vomiting: No Complications Anesthesia Complication: No
== END 2025-08-14 13:55 | disposition home or self-care (01) ==
LOC: SDC 09:22 → AC 09:22
PROVIDERS: PCP Family Medicine; Referring Provider Surgery; Visit Provider Surgery
PROC: (CPT 46260; principal; 2025-08-14 10:45)
DX: K64.8 Other hemorrhoids (principal); K64.4 Residual hemorrhoidal skin tags; E78.00 Pure hypercholesterolemia, unspecified; D64.9 Anemia, unspecified; Z79.899 Other long term (current) drug therapy
CPT/HCPCS: 46260; 00902; 88304; J0666; J2405